=== PATIENT | female | born 1950 | race Caucasian/White ===

== ENCOUNTER 2018-04-14 08:26 | Outpatient (CLI) | payer OTHER, SELFPAY ==
[2018-04-14 09:29] LABS: Hemoglobin A1C 5.6 % (4.5-6.2)
[2018-04-14 09:42] LABS: Cholesterol 292 mg/dL (50-200); Glucose 99 mg/dL (70-100); HDL Cholesterol 128 mg/dL (40-60); LDL CHOLESTEROL 139 mg/dL (<100); Triglyceride 56 mg/dL (30-150)
== END 2018-04-14 08:46 ==
PROVIDERS: PCP Internal Medicine; Visit Provider Obstetrics & Gynecology Gynecology
DX: Z00.00 Encounter for general adult medical examination without abnormal findings (principal); Z13.220 Encounter for screening for lipoid disorders; Z13.1 Encounter for screening for diabetes mellitus
CPT/HCPCS: 36415; 80061; 82947; 83721; 83036

== ENCOUNTER 2018-04-18 00:30 | Outpatient (CLI) | payer OTHER, SELFPAY ==
--- NOTE | 2018-04-18 10:00 | DI.MAMMO_ITS ---
SYMPTOM/DIAGNOSIS: SCREENING, Z12.31, PREVENTATIVE CARE, Z00.00 MAMMOGRAMS: Mammograms were interpreted according to the usual protocol including computer analysis with CAD system, tomosynthesis and C view imaging. Comparison with prior examinations. Breast density B. No suspicious masses or microcalcifications are seen. There is no definite evidence of malignancy. IMPRESSION: Negative mammogram. Routine screening is recommended. Category I. MQSA ASSESSMENT OF FINDINGS: Negative. Category 1. Patient will receive a letter notifying them of these results. BI-RADS category B. There are scattered areas of fibroglandular density.
== END 2018-04-18 00:50 ==
PROVIDERS: PCP Internal Medicine; Visit Provider Obstetrics & Gynecology Gynecology
DX: Z00.00 Encounter for general adult medical examination without abnormal findings (principal); Z12.31 Encounter for screening mammogram for malignant neoplasm of breast
CPT/HCPCS: 77063; 77067

== ENCOUNTER 2018-04-18 12:38 | Outpatient (REF) | payer OTHER, SELFPAY ==
--- NOTE | 2018-04-18 09:40 | PAPFT_PTH ---
PATIENT: Sheila Arreola LOC: [facility] U#:[id number] AGE/SX: 67/F ROOM: RE04/18/[address]: Nani Nichols : 1950 BED: DIS: 04/18/2018 SPEC #: [id number] RECD: 04/18/18 12:51 STATUS: PRINCESS REItzel #: [id number] MARLENA: 04/18/18 09:[address]: Nani Nichols DEPT: [facility] Cytology RECD BY: Christin Burgess ENTERED: 04/18/18 12:52 SP TYPE: PAPFT OTHR DR: Mulu Alfaro Tissues: 1 - CX/ENDOCX FOR PAP SMEARS Procedures: PAP THIN PREP/UVM Screening HPV DNA PROBE Comments: [id number]
== END 2018-04-18 12:58 ==
LOC: LBN 12:38
PROVIDERS: PCP Internal Medicine; Visit Provider Obstetrics & Gynecology Gynecology
DX: Z12.4 Encounter for screening for malignant neoplasm of cervix (principal); Z11.51 Encounter for screening for human papillomavirus (HPV)
CPT/HCPCS: 88142; 87624

== ENCOUNTER 2019-01-13 01:45 | Outpatient (CLI) | payer OTHER, SELFPAY ==
[2019-01-13 10:45] LABS: ALT 49 U/L (14-59); AST 22 U/L (15-37); Albumin 4.2 g/dL (3.4-5.0); Alkaline Phosphatase 77 U/L (46-116); Anion Gap 11.4 mmol/L (3-11); BUN 28 mg/dL (7-18); Bilirubin, Total 0.9 mg/dL (0.2-1.0); CO2 27.6 mmol/L (21.0-32.0); CREATININE 0.96 mg/dL (0.55-1.02); Calcium 9.6 mg/dL (8.5-10.1); Calculated LDL 167 mg/dL; Chloride 104 mmol/L (98-107); Cholesterol 303 mg/dL (50-200); Estimated GFR 57.63 (mL/min/1.73m2); Glucose 110 mg/dL (70-100); HDL Cholesterol 127 mg/dL (40-60); Potassium 4.3 mmol/L (3.5-5.1); Sodium 143 mmol/L (136-145); Total Protein 7.7 g/dL (6.4-8.2); Triglyceride 48 mg/dL (30-150)
[2019-01-16 23:45] LABS: 25-Hydroxy D Total 44 ng/mL; 25-Hydroxy D2 <4.0 ng/mL; 25-Hydroxy D3 44 ng/mL
== END 2019-01-13 02:05 ==
PROVIDERS: PCP Internal Medicine; Visit Provider Nurse Practitioner Family
DX: E78.5 Hyperlipidemia, unspecified (principal); E55.9 Vitamin D deficiency, unspecified
CPT/HCPCS: 36415; 80053; 80061; 82306

== ENCOUNTER 2019-05-15 00:32 | Outpatient (CLI) | payer OTHER, SELFPAY ==
--- NOTE | 2019-05-15 09:30 | DI.MAMMO_ITS ---
EXAM: MG MAMMO SCREENING CLINICAL HISTORY: screening Z12.39 TECHNIQUE: Bilateral full field digital CC and MLO mammographic images were obtained with 3D tomosyn thesis and utilizing computer aided detection (CAD). COMPARISON: Available for comparison. FINDINGS: Masses/Architectural Distortion: None seen. Microcalcifications: No suspicious pleomorphic-type are seen. Skin Thickening/Nipple Retraction: None. IMPRESSION: 1. No significant interval change with no specific features of malignancy noted. 2. Unless there is more urgent need, screening mammography is recommended, as per [employer] guidelines. BI-RADS Cat 1 - Negative Breast Density - Category B - Scattered areas of fibroglandular density A negative radiographic report should not delay biopsy if a dominant or clinically suspicious mass is present. Up to ten percent of cancers are not identified on mammography. A negative report may reinforce clinical impression. Adenosis and dense breasts may obscure an underlying neoplasm. False positive reports average 6 to 10%. Patient will receive a letter notifying them of these results.
== END 2019-05-15 00:52 ==
PROVIDERS: PCP Internal Medicine; Visit Provider Nurse Practitioner Family
DX: Z12.31 Encounter for screening mammogram for malignant neoplasm of breast (principal)
CPT/HCPCS: 77063; 77067

== ENCOUNTER 2020-02-06 10:02 | Day surgery (SDC) | payer OTHER, SELFPAY ==
--- NOTE | 2020-02-06 09:22 | PDOC.DSDIS_ITS ---
Discharge Plan Disposition Patient Disposition: HOME Condition: Good Discharge Details Reason For Visit: Left trigger thumb Attending Provider: Kahlil St Primary Care Provider: Mulu Alfaro Home Meds and New Rx's Prescriptions: New acetaminophen 500 mg tablet 500 mg PO Q6H PRN (Reason: pain) Qty: 60 RF: 0 ibuprofen 600 mg tablet 600 mg PO TID PRN (Reason: pain) Qty: 60 RF: 0 Continued triamcinolone acetonide 60 ML lotion 60 ml Topical PRN RF: 0 Discharge Instructions Stand Alone Forms: Maciel Crowder Finger Release Referrals: Kahlil St MD [ [facility] STAFF PHYSICIAN] - Activity:: Elevate Remove Dressings/Wound Care:: 72 hours Shower/Bathe:: 72 hours Diet:: As Tolerated Discharge Orders Discharge Orders: Discharge Order (Routine); Ordered 02/06/20 Ordered By: Екатерина Edgar DS: Diagnosis Discharge Diagnosis (1) Trigger finger of left thumb: Status: Acute
[2020-02-06 10:15] VITALS: BP 119/69; PULSE 70; RESP 18; TEMP 36.3; O2SAT 97
[2020-02-06 11:40] VITALS: BP 127/71; PULSE 72; RESP 16; O2SAT 99
[2020-02-06 11:53] VITALS: BP 126/75; PULSE 61; RESP 17; O2SAT 98
[2020-02-06] MEDS: Sodium Bicarbonate 50 MEQ/50 ML VIAL (11:55)
[2020-02-06 12:03] VITALS: BP 130/94; PULSE 69; RESP 18; O2SAT 98
--- NOTE | 2020-02-06 17:01 | ROE_ITS ---
Date of service: 02/06/20 Time of Service: 11:01 Operative Note Operative Note DATE OF PROCEDURE: 02/06/20 PRE-OP DIAGNOSIS: Left Thumb Trigger Finger POST-OP DIAGNOSIS: same PROCEDURE: Trigger Finger Release - Left Thumb SURGEON: Kahlil St ANESTHESIA: local ESTIMATED BLOOD LOSS: 0 PATHOLOGY: none sent COMPLICATIONS: None Patient was transported to: same day Patient's condition: stable Indications: I have seen Sheila in clinic for symptoms of a trigger finger. The catching, clicking, locking, and pain limited function. The diagnosis of trigger finger was evident. The symptoms had not responded to conservative measures. I discussed trigger finger release with the patient. I reviewed the risks of the procedure to include, but not limited to, bleeding, infection, pain, stiffness, incomplete release, damage to nerves or vessels, continued catching, recurrence. Despite these risks, the patient elected to proceed. Findings: There was a tightened A1 adama which was released. The flexor tendons were inspected and the patient was able to move the finger without any catching, clicking, or locking. Procedure Description: Sheila was greeted in the preoperative holding area where the correct side was identified and marked. The consent was reviewed with the patient and signed. All questions were answered. Sheila was taken back to the operating room. The patient was placed into the supine position on the operating room table with the left arm on an arm board. All bony prominences were well padded. No prophylactic antibiotics were administered since this was a clean, elective hand surgical case. The left arm was then prepped with Chloraprep and draped in a standard fashion with stockinette and extremity drape. A timeout to confirm correct identity, side and site, procedure, allergies, anesthesia, and medical concerns was performed. The surgical site was marked as a longitudinal incision directly over the A1 adama of the involved digit. This was confirmed with palpation during finger flexion. This area, overlying the metacarpal head, was then anesthetized with 1% Lidocaine. The patient tolerated this well and once the anesthetic had setup, the procedure began. A longitudinal incision was made through skin only, approximately 1cm. The deep tissues were dissected bluntly. Once the A1 adama and flexor tendons were identified the soft tissue including neurovascular structures were retracted medially and laterally. There were no crossing structures over the A1 adama. The proximal edge of the adama was identified and the adama was incised with tenotomy scissors. There was a release of the tendons once this was fully released. The tendons were then removed from the wound and inspected. Excess synovium was resected. The tendons were then returned and the patient was asked to move the finger into deep flexion and back to extension. There was no recreation of the pre-operative symptoms. The hand was then once more inspected for any A0 adama or area of possible constriction. The wound was then irrigated and the skin was closed with a 4-0 Nylon. This was dressed with gauze and a Conform dressing. The patient tolerated the procedure well and was returned to the Same Day Surgery area in a stable condi tion suffering no known complication.
== END 2020-02-06 12:26 | disposition home or self-care (01) ==
LOC: SUR 10:03
PROVIDERS: PCP Internal Medicine; Visit Provider Student in an Organized Health Care Education/Training Program
PROC: (CPT 26055; principal; 2020-02-06 12:45)
DX: M65.312 Trigger thumb, left thumb (principal)
CPT/HCPCS: 26055

== ENCOUNTER 2020-04-09 02:38 | Outpatient (CLI) | payer OTHER, SELFPAY ==
[2020-04-09 10:56] LABS: Hemoglobin A1C 5.4 % (<5.7)
[2020-04-09 10:58] LABS: Abs Immature Grans 0.02 10^3/uL (0.0-0.06); Absolute Basophil Count 0.03 10^3/uL (0.0-0.2); Absolute Eosinophil Count 0.14 10^3/uL (0.0-0.7); Absolute Lymphocyte Count 1.36 10^3/uL (1.2-3.4); Absolute Monocyte Count 0.42 10^3/uL (0.1-0.8); Absolute Neutrophil Count 3.33 10^3/uL (1.2-6.7); Basophils % 0.6; Eosinophils % 2.6; HCT 40.1 % (36.0-46.0); HGB 13.2 g/dL (11.2-15.7); Immature Grans % 0.4; Lymphocytes % 25.7; MCH 30.9 pg (27.0-33.0); MCHC 32.9 % (32.0-36.0); MCV 93.9 fL (80-95); Monocytes % 7.9; Neutrophils % 62.8; Nucleated RBC 0 %; Platelet Count 221 10^3/uL (130-400); RBC 4.27 10^6/uL (3.93-5.22); RDW 12.5 % (11.7-14.6); RDW-SD 43.2 fL
[2020-04-09 12:15] LABS: ALT 53 U/L (14-59); AST 29 U/L (15-37); Albumin 3.5 g/dL (3.4-5.0); Alkaline Phosphatase 85 U/L (46-116); BUN 12 mg/dL (7-18); Bilirubin, Total 1.2 mg/dL (0.2-1.0); CREATININE 0.9 mg/dL (0.55-1.02); Chloride 106 mmol/L (98-107); FREE T4 0.86 ng/dL (0.76-1.46); Glucose 109 mg/dL (74-106); Potassium 3.9 mmol/L (3.5-5.1); Sodium 144 mmol/L (136-145); TSH 1.02 uIU/mL (0.36-3.74); Total Protein 6.9 g/dL (6.4-8.2)
[2020-04-09 12:28] LABS: Calculated LDL 164 mg/dL (<100); Cholesterol 296 mg/dL (<200); HDL Cholesterol 121 mg/dL (40-60); Triglyceride 59 mg/dL (<150)
[2020-04-12 20:36] LABS: 25-Hydroxy D Total 34 ng/mL; 25-Hydroxy D2 <4.0 ng/mL; 25-Hydroxy D3 34 ng/mL
== END 2020-04-09 02:39 | disposition home or self-care (01) ==
LOC: LBO 02:38
PROVIDERS: PCP Internal Medicine; Visit Provider Nurse Practitioner Family
DX: R73.9 Hyperglycemia, unspecified (principal); E55.9 Vitamin D deficiency, unspecified; E78.5 Hyperlipidemia, unspecified
CPT/HCPCS: 36415; 80053; 80061; 82306; 83036; 84439; 84443; 85025

== ENCOUNTER 2020-04-18 01:16 | Outpatient (CLI) | payer OTHER, SELFPAY ==
--- NOTE | 2020-04-18 12:12 | DI.MAMMO_ITS ---
EXAM: MG MAMMO SCREENING CLINICAL HISTORY: SCREENING, Z12.39. TECHNIQUE: Bilateral full field digital CC and MLO mammographic images were obtained with 3D tomosyn thesis and utilizing computer aided detection (CAD). COMPARISON: Prior mammograms dating back to 2010, the most recent being April 2019. FINDINGS: There are no CAD designations. In the anterior aspect of right breast there is a noncalcified well-defined 5 x 5 millimeter nodule l ocated approximately 2 cm in from the nipple, slightly lateral center. There are no malignant-appear ing microcalcification groups in this region or elsewhere in either breast. No new nodules evident i n the opposite-left breast. There is no significant architectural distortion nor skin thickening-re traction. IMPRESSION: No radiographic evidence of malignancy in left breast 5 x 5 millimeter noncalcified nodule located anteriorly in the right breast, relatively central and s lightly lateral para areolar region. Ultrasound recommended BI-RADS Category 0 - Assessment Incomplete: Need additional imaging evaluation Breast Density - Category B - Scattered areas of fibroglandular density Breast density Category C or D implies that the patient has dense breast tissue. Dense breast tissue can make it harder to find cancer on a mammogram. Dense breast tissue is also associated with an incr eased risk of breast cancer. This information about the result of the mammogram report was provided to the patient to raise their awareness. Use this report when you speak with the patient about their risks for breast cancer, which includes their family history. At that time, you may recommend additional screening tests (Ultrasoun d or MRI) as these tests may add significant information. A negative radiographic report should not delay biopsy if a dominant or clinically suspicious mass is present. Up to ten percent of cancers are not identified on mammography. A negative report may reinforce clinical impression. Adenosis and dense breasts may obscure an underlying neoplasm. False positive reports average 6 to 10%. Patient will receive a letter notifying them of these results.
== END 2020-04-18 01:17 ==
LOC: DI 01:17
PROVIDERS: PCP Internal Medicine; Visit Provider Nurse Practitioner Family
DX: Z12.31 Encounter for screening mammogram for malignant neoplasm of breast (principal); R92.8 Other abnormal and inconclusive findings on diagnostic imaging of breast
CPT/HCPCS: 77063; 77067

== ENCOUNTER 2020-04-26 14:09 | Outpatient (CLI) | payer OTHER, SELFPAY ==
--- NOTE | 2020-04-26 | DI.CT_ITS ---
EXAM: CT CHEST W CLINICAL HISTORY: COUGH, R05,PARATRACHEAL LYMPH NODE ON CXR 03/21/20 TECHNIQUE: Imaging Protocol: Axial computed tomography images with coronal and sagittal reformatted images were created and reviewed CONTRAST MATERIAL: Intravenous: Omnipaque 350 Contrast volume:70 cc . COMPARISON: No exams were available for comparison FINDINGS: Tracheobronchial tree: Patent where visualized. Mediastinum and Naina: No dominant adenopathy or fluid collection. Pulmonary parenchyma: No consolidation or dominant measurable mass. No architectural distortion. Pleura: No effusion or pneumothorax. Heart: The heart is not dilated. No coronary artery calcifications are seen. Aorta: Thoracic aorta non-dilated. Minimal calcification. Upper abdomen: Liver, spleen, adrenals and visualized portions of the pancreas and kidneys are unrem arkable. Few small calcified gallstones are seen. There is no gallbladder wall thickening or abnorm al distention. There is a question of a small diverticulum of the descending duodenum. This is not fully included on the exam. Lymph nodes: 2.4 centimeter maximal dimension calcified right paratracheal lymph node, consistent wit h old healed granulomatous disease. No suspicious lymph nodes. Bones: Degenerative disc changes. Hemangioma T10. Soft tissues: Unremarkable. IMPRESSION: Calcified right paratracheal lymph node consistent with old granulomatous disease. No suspicious abn ormalities are identified. RADIATION DOSE DELIVERED: 495.45mGy.cm Total DLP DATA REPOSITORY: All CT scans at this facility are submitted to the National Radiology Data Registry (NRDR) Dose Index Registry (DIR) with the [employer] (ACR). RADIATION OPTIMIZATION: All CT scans at this facility use at least one of these dose optimization te chniques: automated exposure control; mA and/or kV adjustment per patient size (includes targeted exa ms where dose is matched to clinical indication); or iterative reconstruction.
[2020-04-26] MEDS: Normal Saline - Diluent 50 ML VIAL IV (15:49)
[2020-04-26] MEDS: Omnipaque 350 MG/ML 100 ML BTL IV (15:49)
[2020-04-26] MEDS: Normal Saline Flush 10 ML SYR IVP (15:49)
== END 2020-04-26 14:29 ==
PROVIDERS: PCP Internal Medicine; Visit Provider Nurse Practitioner Family
DX: I89.8 Other specified noninfective disorders of lymphatic vessels and lymph nodes (principal); R05 Cough
CPT/HCPCS: 71260; J3490

== ENCOUNTER → 2020-07-04 09:31 | Outpatient (BNVA) | payer MEDICARE, SELFPAY | PROVIDERS: PCP Internal Medicine; Referring Provider Nurse Practitioner Family; Visit Provider Physical Therapy Assistant | DX: Z12.11 Encounter for screening for malignant neoplasm of colon (principal); Z86.010 Personal history of colon polyps ==

== ENCOUNTER 2020-07-11 02:00 | Outpatient (CLI) | payer MEDICARE, SELFPAY ==
[2020-07-11 10:44] LABS: Source Nasal/Nares
[2020-07-11 12:47] LABS: COVID-19 PCR Negative (Negative)
== END 2020-07-11 02:01 | disposition home or self-care (01) ==
LOC: LBO 02:00
PROVIDERS: PCP Internal Medicine; Visit Provider Surgery
DX: Z20.822 Contact with and (suspected) exposure to COVID-19 (principal); Z01.818 Encounter for other preprocedural examination
CPT/HCPCS: 87635

== ENCOUNTER 2020-07-15 11:03 | Day surgery (SDC) | payer MEDICARE, SELFPAY ==
--- NOTE | 2020-07-15 06:32 | W.COLOREPORT ---
Date of service: 07/15/20 Time of Service: : Colonoscopy Report Date of procedure: 07/15/20 Pre-op diagnosis general: Hx of colon polyps Post-op diagnosis procedure note: same (and diverticulosis) Procedure: Colonoscopy with polypectomy Surgeon: Anayeli Eddy Anesthesia Type: General:No Airway (ASA 2/ Best Hartley CRNA) Estimated blood loss (mL): 2 Pathology: other (Ascending polyp) Complications: None Disposition: same day Indications: The patient is here for Colonoscopy pre-op. Her last screening was in 2014 and was remarkable for tubular adenomatous polyp. She has no family history of colon cancer. She has not had any bowel habit changes. -Discussed colonoscopy bowel prep as well as the procedure. Discussed possible complications of the procedure to include bleeding, pain, perforation, missed small lesion/polyp, sore throat, aspiration and adverse reaction to the medications. Questions were answered to patient?s satisfaction. No guarantees were implied or given.? Prep: Miralax/Dulcolax Procedure Start Time: :22 Procedure End Time: 12:45 Retraction Time: 15 minutes Findings: One small sessile polyp Moderate vernon-diverticulosis Procedure Description: After informed consent was obtained the patient was taken to the procedure room and placed in a left decubitous position. Monitors were applied and a time out was done. The patients name, date of , procedure, allergies to medications and metal in their body was reviewed. The patient was then sedated. Once sedated and comfortable a rectal exam was done. External exam was normal. Internal exam revealed a normal sphincter tone and no palpable masses. The scope was then introduced and retro-flexed. No internal hemorrhoids, polyps or masses were identified on retro-flexion. The scope was then advanced to the cecum without difficulty. The ileocecal vlave and appendiceal orifice were identified. The prep was adequate. The scope was then slowly retracted over 15 minutes back into the rectum. Polyps were removed with cold forceps in the ascending colon. There was moderate vernon- diverticulosis noted. The scope was removed and the patient was woken up and taken back to Same day surgery in stable condition. The patient tolerated the procedure well and there were no immediate complications. Follow up: The patient should follow up in 5 years unless they develop changes in bowel habits or other new gastrointestinal complaints.
--- NOTE | 2020-07-15 06:32 | W.PM.DSUDISC ---
Discharge Plan Disposition Patient Disposition: HOME Condition: Good Discharge Details Reason For Visit: Colonoscopy Attending Provider: Anaylei Eddy Primary Care Provider: Mulu Alfaro Home Meds and New Rx's Prescriptions: Continued triamcinolone acetonide 60 ML lotion 60 ml Topical PRN RF: 0 acetaminophen 500 mg tablet 500 mg PO Q6H PRN (Reason: pain) Qty: 60 RF: 0 ibuprofen 600 mg tablet 600 mg PO TID PRN (Reason: pain) Qty: 60 RF: 0 Discontinued bisacodyl [Dulcolax (bisacodyl)] 5 mg tablet,delayed release (DR/EC) 5 mg PO ONCE Qty: 4 RF: 0 polyethylene glycol 3350 17 gram/dose powder 17 g PO ONCE Qty: 238 RF: 0 Discharge Instructions Instructions: Colorectal Polyps (DC), Diverticulosis (DC) Additional Instructions: Findings: One small polyp Diverticulosis Follow up: 5 years Please call if you develop: fevers >101.5 Nausea or Vomiting Abdominal pain that is not transient Rectal bleeding that is more then a tbsp A hard abdomen and inability to pass gas DAY SURGERY UNIT POST ENDOSCOPY INSTRUCTIONS Instructions for everyone who is given Anesthesia: For your safety, please do the following for the next 24 Hours: a. Do not drive or operate dangerous equipment b. Do not drink alcohol beverages or use any recreational drugs for the first 24 hours or while taking pain medications. The medications in your body may have a reaction that can be dangerous. c. Do not make any important decisions or sign any important papers 1. Generally there are no restrictions on your activity after a day or so has gone by, but you may feel a bit fatigued for a few days. 2. After you arrive home you may have a light meal and return to a normal diet as you can tolerate it without feeling sick to your stomach. 3. After surgery, you may feel pain or discomfort. This should be only transient, but if it persists please contact your doctor. 4. If there are any questions regarding the findings of your procedure, please feel free to contact your doctor. 6. If you are unable to contact your doctor with a problem, contact the hospital at [phone]. 7. Continue all your regular medications unless directed otherwise. I understand the above instructions and have no questions. Signature of Patient or Responsible Adult Escort Date/Time Name of Responsible Adult Escort Signature of Nurse Date/Time Activity:: Activity as Tolerated Diet:: high fiber diet Discharge Orders Discharge Orders: Discharge Order (Routine); Ordered 07/15/20 Ordered By: Anayeli Eddy
[2020-07-15 11:32] VITALS: BP 124/78; PULSE 65; RESP 16; TEMP 36.3; O2SAT 97
[2020-07-15] MEDS: Lactated Ringers 1,000 ML 80 ML IV (11:50)
--- NOTE | 2020-07-15 11:54 | ANES.PREOP_ITS ---
General Info Date of Service Date Performed: 07/15/20 Height: 5 ft 3 in Weight: 65.1 kg Body Mass Index (BMI): 25.4 Surgical Procedure: Operation Date: 07/15/20 11:50 Proposed Procedures Side Surgeon p Colonoscopy Anayeli Eddy MD Meds Allergies and Home Medications Allergies Allergy/AdvReac Type Severity Reaction Status Date / Time amoxicillin Allergy Severe Skin Rash Unverified 07/15/20 11:27 cephalexin monohydrate Allergy Intermediate Hives Unverified 07/15/20 11:27 [From [facility]] Home Medication Medication Instructions Recorded triamcinolone acetonide 60 ml TOPICAL PRN script 03/16/16 acetaminophen 500 mg PO Q6H PRN #60 tab 02/06/20 ibuprofen 600 mg PO TID PRN #60 tab 02/06/20 bisacodyl 5 mg tablet,delayed 5 mg PO ONCE #4 tab 07/05/20 release polyethylene glycol 3350 17 17 g PO ONCE #238 g 07/05/20 gram/dose oral powder Current Visit Medications: Current Medications Generic Name Dose Route Start Last Admin Trade Name Riverq PRN Reason Stop Dose Admin Hyoscyamine Sulfate 0.125 mg 07/15/20 06:33 Hyoscyamine 0.125 Mg Sl/Oral/Chew SL DIRECTED PRN Ringer's Solution 1,000 mls @ 80 mls/hr 07/15/20 06:00 07/15/20 11:50 IV 07/15/20 23:59 80 mls/hr INFUSION NAN Administration IV Miscellaneous Supplies 1 each 07/15/20 06:00 Iv Access IV 07/15/20 23:59 DIRECTED NAN Ondansetron HCl 4 mg 07/15/20 06:33 Ondansetron 4 Mg/2 Ml Vial IVP Q4H PRN PRN Nausea / Vomiting Sodium Chloride 0 ml 07/15/20 06:00 Normal Saline Flush 10 Ml Syr IV 07/15/20 23:59 PRN PRN Sodium Chloride 0 ml 07/15/20 06:00 Normal Saline 10 Ml Vial IJ 07/15/20 23:59 DIRECTED PRN Sterile Water 0 ml 07/15/20 06:00 Water,Injection,Sterile 10 Ml Vial IJ 07/15/20 23:59 DIRECTED PRN PFSH Active Problems Active Problems: Problem Status Onset Code Screening for colon cancer Z12.11 Trigger finger of left thumb M65.312 Medical History Medical History (Updated 07/15/20 @ 11:31 by Malorie Bates) Cystocele pt .unaware of this Eczema History of trigger finger Hyperglycemia Hyperlipidemia Pruritic rash Trigger finger of left thumb Vitamin D deficiency Surgical History Surgical History Colonoscopy - IV Sedation (01/07/15) DR.C. LOMBARDO H/O nasal septoplasty History of carpal tunnel surgery History of section Tobacco Smoking/Tobacco Use Status: Never Alcohol Alcohol Intake: current Alcohol intake frequency: 0-2 drinks per day Alcohol type: wine Substance Use Substance use: Never Substance use type: does not use Details: alcohol:t-5 Prental History History 2 Para Hx # Term Pregnancies 2 Multiple births Hx # Pregnancies Ectopic pregnancies AB induced Hx Number of Living Children AB spontaneous Vital Signs and Lab Results Vital Signs Most Recent Vital Signs in EMR: Most Recent Vital Signs Temp Pulse Resp BP Pulse Ox 36.3 C L 65 16 124/78 97 07/15/20 11:32 07/15/20 11:32 07/15/20 11:32 07/15/20 11:32 07/15/20 11:32 Lab Results Blood Type / Crossmatch: No Data to Display Complete Blood Count: No Data to Display Complete Metabolic Panel: No Data to Display Liver Function Panel: No Data to Display Coagulation Panel: No Data to Display Cardiac Panel: No Data to Display Arterial Blood Gas: No Data to Display Venous Blood Gas: No Data to Display Pancreas Panel: No Data to Display Thyroid Panel: No Data to Display Infectious Disease: Coronavirus (COVID-19)(PCR) Negative (Negative) 07/11/20 10:06 07/11/20 Coronavirus 2019 Source Nasal/nares 07/11/20 10:06 07/11/20 Blood Cultures: No Data to Display Toxicology Panel: No Data to Display Anesthesia Assessment and Plan Anesthesia History Personal History: No History of Anesthesia Complications Family History: No Family History of Anesthesia Complications Exercise Tolerance Exercise Tolerance: Metabolic Equivalents>4 Pertinent Negatives Pertinent Negatives: No Symptoms of GERD Cardiac & Pulmonary Exam Cardiac Exam: Normal S1/S2 Heart Sounds Pulmonary Exam: Clear Bilateral Breath Sounds Airway Exam Known Difficult Airway: No Mallampati Class: 2 Mouth Opening: Normal (> 3cm) Thyromental Distance: Less than 3 cm Neck Range of Motion: Full ROM Neck Circumference: Normal Teeth Condition: Normal Dentition ASA Classification ASA Score: ASA 2 Emergency Case?: No NPO Status NPO Status: NPO Clears >2 hours, Solids >8 hours Anesthesia Plan Resuscitation Status: Full Code Anesthesia Technique: General Anesthesia Airway Planned: Natural Airway Monitors Used: Standard Monitors
[2020-07-15 11:58] VITALS: BMI 25.4
--- NOTE | 2020-07-15 12:31 | BOWEL_PTH ---
PATIENT: Sheila Arreola LOC: [facility] U#:[id number] AGE/SX: 70/F ROOM: RE07/15/[address]: Anayeli Eddy MD : 1950 BED: DIS: 07/15/2020 SPEC #: [id number] RECD: 07/15/20 17:46 STATUS: PRINCESS REQ #: [id number] MARLENA: 07/15/20 12:[address]: Anayeli Eddy DEPT: Surgical Specimen RECD BY: Christin Burgess ENTERED: 07/15/20 17:47 SP TYPE: Bowel OTHR DR: Mulu Alfaro Tissues: 1 - BIOPSY BOWEL Procedures: GROSS AND MICRO LEVEL 4 Comments: [id number]
--- NOTE | 2020-07-15 12:49 | W.ANESPOSTOP ---
Postoperative Evaluation Date, Time and Location Date Performed: 07/15/20 Time Performed: 12:50 Patient Location: Day Surgery Unit Vital Signs Most Recent Imported Vital Signs: Most Recent Vital Signs Temp Pulse Resp BP Pulse Ox 36.3 C L 65 16 124/78 97 07/15/20 11:32 07/15/20 11:32 07/15/20 11:32 07/15/20 11:32 07/15/20 11:32 Most Recent Manually Entered Vital Signs: Adult Blood Pressure: 112/63 Heart Rate: 60 Respirations: 14 Oxygen Saturation (%): 99 Temperature (C): 36.4 C Pain Score (0-10 Scale): 0 Pain Score Most Recent Pain Score: Most Recent Pain Score Pain Level 0 07/15/20 11:32 Assessment Mental Status: Arousable with meaningful communication Airway and Respiratory Function: Patent airway with normal (patient baseline) respiratory exam Cardiovascular Function: Hemodynamically Stable Hydration Status: Adequately Hydrated Nausea & Vomiting: No Nausea or Vomiting Pain: Pt. Denies Any Pain Peripheral Nerve Block: Patient did not receive a nerve block
[2020-07-15 12:50] VITALS: BP 112/63; PULSE 63; RESP 18; TEMP 36.4; O2SAT 99
[2020-07-15 12:52] VITALS: BP 112/63; PULSE 60; RESP 14; TEMPC 36.4; O2SAT 99
[2020-07-15 13:20] VITALS: BP 112/67; PULSE 62; RESP 18; TEMP 36.1; O2SAT 100
== END 2020-07-15 14:02 | disposition home or self-care (01) ==
LOC: SUR 11:03
PROVIDERS: PCP Internal Medicine; Visit Provider Surgery
PROC: 0DJD8ZZ Inspection of Lower Intestinal Tract, Via Natural or Artificial Opening Endoscopic (ICD-10-PCS; CPT 45378; principal; 2020-07-15 11:45)
DX: Z12.11 Encounter for screening for malignant neoplasm of colon (principal); D12.2 Benign neoplasm of ascending colon; Z86.010 Personal history of colon polyps; K21.9 Gastro-esophageal reflux disease without esophagitis; K57.30 Diverticulosis of large intestine without perforation or abscess without bleeding
CPT/HCPCS: 45380; 88305; J2001

== ENCOUNTER 2020-10-31 01:47 | Outpatient (CLI) | payer MEDICARE, SELFPAY ==
--- NOTE | 2020-10-31 | DI.MAMMO_ITS ---
Exam(s) MG MAMMO DIAGNOSTIC UNI EXAM: MG MAMMO DIAGNOSTIC UNI CLINICAL HISTORY: DIAGNOSTIC, F/U ABNL MAMMO, 6 MO F/U,R92.8. TECHNIQUE: Craniocaudal and mediolateral oblique Full Field Digital Mammography views of the right breast with Computer Aided Diagnosis followed by Tomosynthesis. COMPARISON: US US BREAST RT LIMITED from 04/24/2020 US US BREAST RT LIMITED from 04/24/2020 FINDINGS: Mammography/Tomosynthesis: Masses/Architectural Distortion: None seen. Previously noted circumscribed nodule in the subareolar region is no longer present. Microcalcifictions: No suspicious pleomorphic-type are seen. Skin Thickening/Nipple Retraction: None. IMPRESSION: 1. No evidence of malignancy is noted. 2. Unless there is more urgent need, follow-up screening mammography is recommended, as per [place] [employer] guidelines. BI-RADS Category 1 - Negative Breast Density - Category B - Scattered areas of fibroglandular density A negative radiographic report should not delay biopsy if a dominant or clinically suspicious mass is present. Up to ten percent of cancers are not identified on mammography. A negative report may reinforce clinical impression. Adenosis and dense breasts may obscure an underlying neoplasm. False positive reports average 6 to 10%. Patient will receive a letter notifying them of these results.
== END 2020-10-31 02:07 ==
PROVIDERS: PCP Internal Medicine; Visit Provider Nurse Practitioner Family
DX: R92.8 Other abnormal and inconclusive findings on diagnostic imaging of breast (principal)
CPT/HCPCS: 77061; 77065; G0279

== ENCOUNTER 2021-02-07 00:10 | Outpatient (CLI) | payer MEDICARE, SELFPAY ==
--- NOTE | 2021-02-07 14:00 | DI.DEXA_ITS ---
Exam(s) XR DEXA BONE DENSITY W/WO CESAR EXAM: XR DEXA BONE DENSITY W/WO CESAR CLINICAL HISTORY: POST MENOPAUSAL Z78.0, MENOPAUSAL STATE N95.1, SCREENING FOR OSTESPOROSIS TECHNIQUE: COMPARISON: Comparison is made with prior examinations. FINDINGS: Lateral Spine Image: Unremarkable. No compression deformities identified. Left hip: Total T-Score: 0.6. This compares to 1.5 on the prior examination. Total Z-Score: 2.2 T- and Z-scores: Within normal limits. Lumbar Spine: Total T-Score: 1.7. This compares to 1.9 on the prior examination. Total Z-Score: 3.9 T- and Z-scores: Within normal limits. IMPRESSION: No evidence of osteoporosis.
== END 2021-02-07 00:30 ==
PROVIDERS: PCP Internal Medicine; Visit Provider Internal Medicine
DX: Z13.820 Encounter for screening for osteoporosis (principal); N95.1 Menopausal and female climacteric states
CPT/HCPCS: 77080

== ENCOUNTER 2021-05-09 02:49 | Outpatient (CLI) | payer OTHER, SELFPAY ==
--- NOTE | 2021-05-09 08:00 | DI.MAMMO_ITS ---
Exam(s) MAMMO SCREENING EXAM: MAMMO SCREENING CLINICAL HISTORY: SCREENING, Z12.31. TECHNIQUE: Bilateral full field digital CC and MLO mammographic images were obtained with 3D tomosyn thesis and utilizing computer aided detection (CAD). COMPARISON: Prior mammograms were reviewed, the most recent being April 2020 and diagnostic study October 2020. Ultrasound examination of April 2020 was also reviewed. FINDINGS: There are no CAD designations. There are no new spiculated masses nor malignant appearing microcalcification groups. The previously described small nodule seen in the right breast on 3D cc imaging remains unchanged. T his was shown to be a probable hemorrhagic microcyst on ultrasound examination of April 2020. There is no significant architectural distortion nor skin thickening-retraction. IMPRESSION: Stable benign findings. No radiographic evidence of malignancy. BI-RADS Category 2 - Benign Findings Breast Density - Category B - Scattered areas of fibroglandular density Breast density Category C or D implies that the patient has dense breast tissue. Dense breast tissue can make it harder to find cancer on a mammogram. Dense breast tissue is also associated with an incr eased risk of breast cancer. This information about the result of the mammogram report was provided to the patient to raise their awareness. Use this report when you speak with the patient about their risks for breast cancer, which includes their family history. At that time, you may recommend additional screening tests (Ultrasoun d or MRI) as these tests may add significant information. A negative radiographic report should not delay biopsy if a dominant or clinically suspicious mass is present. Up to ten percent of cancers are not identified on mammography. A negative report may reinforce clinical impression. Adenosis and dense breasts may obscure an underlying neoplasm. False positive reports average 6 to 10%. Patient will receive a letter notifying them of these results.
== END 2021-05-09 03:09 ==
PROVIDERS: PCP Internal Medicine; Visit Provider Internal Medicine
DX: Z12.31 Encounter for screening mammogram for malignant neoplasm of breast (principal)
CPT/HCPCS: 77063; 77067

== ENCOUNTER 2022-08-13 00:54 | Outpatient (CLI) | payer OTHER, SELFPAY ==
--- NOTE | 2022-08-13 10:38 | DI.MAMMO_ITS ---
Exam(s) MAMMO SCREENING EXAM: MAMMO SCREENING CLINICAL HISTORY: screening Z12.39 FOR BREAST CANCER. TECHNIQUE: Bilateral full field digital CC and MLO mammographic images were obtained with 3D tomosyn thesis and utilizing computer aided detection (CAD). COMPARISON: Prior mammograms were reviewed. Prior ultrasound also reviewed. FINDINGS: There has been no significant change in the appearance and distribution of the fibroglandular tissue. There are no CAD designations. There are no new spiculated masses nor malignant appearing microcalcification groups. There is no significant architectural distortion nor skin thickening-retraction. IMPRESSION: No radiographic evidence of malignancy. BI-RADS Category 1 - Negative Breast Density - Category B - Scattered areas of fibroglandular density Breast density Category C or D implies that the patient has dense breast tissue. Dense breast tissue can make it harder to find cancer on a mammogram. Dense breast tissue is also associated with an incr eased risk of breast cancer. This information about the result of the mammogram report was provided to the patient to raise their awareness. Use this report when you speak with the patient about their risks for breast cancer, which includes their family history. At that time, you may recommend additional screening tests (Ultrasoun d or MRI) as these tests may add significant information. A negative radiographic report should not delay biopsy if a dominant or clinically suspicious mass is present. Up to ten percent of cancers are not identified on mammography. A negative report may reinforce clinical impression. Adenosis and dense breasts may obscure an underlying neoplasm. False positive reports average 6 to 10%. Patient will receive a letter notifying them of these results.
== END 2022-08-13 01:14 ==
PROVIDERS: PCP Internal Medicine; Visit Provider Obstetrics & Gynecology
DX: Z12.31 Encounter for screening mammogram for malignant neoplasm of breast (principal)
CPT/HCPCS: 77063; 77067

== ENCOUNTER 2022-08-13 01:15 | Outpatient (CLI) | payer OTHER, SELFPAY ==
[2022-08-13 10:40] LABS: Calculated LDL 141 mg/dL (<100); Cholesterol 308 mg/dL (<200); HDL Cholesterol 160 mg/dL (40-60); TSH (W/Ref FT4) 1.65 uIU/mL (0.36-3.74); Triglyceride 39 mg/dL (<150)
== END 2022-08-13 01:16 | disposition home or self-care (01) ==
PROVIDERS: PCP Internal Medicine; Visit Provider Obstetrics & Gynecology
DX: Z12.31 Encounter for screening mammogram for malignant neoplasm of breast (principal); Z00.00 Encounter for general adult medical examination without abnormal findings
CPT/HCPCS: 80061; 84443

== ENCOUNTER 2023-07-15 05:14 | Outpatient (CLI) | payer OTHER, SELFPAY ==
[2023-07-15 08:56] LABS: Cholesterol 295 mg/dL (<200); Triglyceride 42 mg/dL (<150)
[2023-07-15 09:01] LABS: Calculated LDL 118 mg/dL (<100); HDL Cholesterol 169 mg/dL (40-60)
[2023-07-15 10:22] LABS: Vitamin D 25 Total 22.2 ng/mL (30-100)
== END 2023-07-15 05:15 | disposition home or self-care (01) ==
PROVIDERS: PCP Internal Medicine; Visit Provider Internal Medicine
DX: E78.5 Hyperlipidemia, unspecified (principal)
CPT/HCPCS: 36415; 80061; 82306

== ENCOUNTER 2023-10-22 00:03 | Outpatient (CLI) | payer OTHER, SELFPAY ==
--- OUTSIDE RECORDS SUMMARY | 2023-10-22 00:05 | XMS_ITS | Encounter Summary ---
Author Organization [facility] Address [address] [place] [address] Care Team Providers Care Stud Beef Cattle Farmer Name Role Phone Bobby Aldridge MD Primary Care Provider [phone] Encounter Details Date Type Department Care Team (Late st Contact Info) Description 04/18/2018 Results Only [facility] [phone] Claribel Oliva MD [facility] [place], [place] [address] Social History Tobacco Use Types Packs/Day Years Used Date Smoking Tobacco: Never Assessed Sex and Gender Information Value Date Recorded Sex Assigned at Not on file Gender Identity Not on file Sexual Orientation Not on file documented as of this encounter Plan of Treatment Not on file documented as of this encounter Procedures Procedure Name Priority Date/Time Associated Diagnosis Comments PAP TEST- RESULT ONLY Routine 04/18/2018 0:00 EST documented in this encounter Results * PAP TEST- RESULT ONLY (04/18/2018 0:00 EST) Pathology Report: CYTOPATHOLOGY REPORT Reports generated via electronic interface contain original data; however they are lacking the format of the original report. Caution should be taken when reading/interpreti ng unformatted reports. Name: ? JAROD MANCINI ? Accession #: ? [id number] ? : ? 1950 (Age: 67) ??F ?Collect Date: ? 04/18/2018 ? Location: ? [facility] ? Receive Date: ? 04/19/2018 ? Provider: CLARIBEL OLIVA MD Copy to: CONSTANTIN GIVENS MD ? Final Report SPECIMEN ADEQUACY ? Satisfactory for Evaluation - assessment of transformation zone component not applicable ( e.g. atrophy, vaginal sample, hysterectomy) GENERAL CATEGORIZATION ? Negative for Intraepithelial Lesion or Malignancy ?? Specimen/Source: ??Pap Test, Cervix/Endocervix, ThinPrep Imaging System with manual evaluation Document reviewed and electronically signed by: ? Falguni Han, [facility](ASCP) ? Report ??Date: 04/20/2018 11:08 HPV with Pap Test ? Date Ordered: ? 04/20/2018 ? Status: ?? Signed Out ?Date Complete: ? 04/21/2018 ? By: ??System Interface ? Date Reported: ? 04/21/2018 ? Interpretation RESULT: Negative for HPV. No E6 or E7 mRNA is detected from HPV types 16,18,31,33,35, 39,45,51,52,56,58, 59,66, and 68 by horologist apprentice mediated amplification. Comments Document reviewed and electronically signed by: ? System Interface ? Report date: 04/21/2018 By the signature above, the attending physician certifies that he/she has personally conducted a gross and/or microscopic examination of the described specimens and rendered or confirmed the above diagnosis. End of Report [facility] 04/18/2018 04/19/2018 Claribel Oliva MD PATHOLOGY ORDERABLES [facility] [address] [place] [address] documented in this encounter Visit Diagnoses Not on filedocumented in this encounter Care Teams Stud Beef Cattle Farmer Relationship Specialty Start Date End Date Bobby Aldridge MD [address] [place] [address] PCP - General 01/09/15 06/28/20 documented as of this encounter
--- OUTSIDE RECORDS SUMMARY | 2023-10-22 00:05 | XMS_ITS | Encounter Summary ---
Author Organization [facility] Address [address] [place] [address] Care Team Providers Care Structural Steel Shop Supervisor Name Role Phone Bobby Aldridge MD Primary Care Provider [phone] Encounter Details Date Type Department Care Team (Late st Contact Info) Description 03/22/2017 Results Only [facility] [phone] Gio Yu MD [address] [place] [address] Social History Tobacco Use Types Packs/Day Years [...] Diagnosis Comments PAP TEST- RESULT ONLY Routine 03/22/2017 0:00 EST documented in this encounter Results * PAP TEST- RESULT ONLY (03/22/2017 0:00 EST) Pathology Report: CYTOPATHOLOGY REPORT Reports generated via electronic interface contain original data; however they are lacking the format of the original report. Caution should be taken when reading/interpreti ng unformatted reports. Name: ? JAROD MANCINI ? Accession #: ? [id number] ? : ? 1950 (Age: 66) ??F ?Collect Date: ? 03/22/2017 ? Location: ? [facility] ? Receive Date: ? 03/23/2017 ? Provider: GIO YU MD Copy to: PAZ ANDREW STRAIGHT PIN MAKING MACHINE OPERATOR ? Final Report SPECIMEN ADEQUACY ? Satisfactory for Evaluation - assessment of transformation zone component not applicable ( e.g. atrophy, vaginal sample, hysterectomy) GENERAL CATEGORIZATION ? Negative for Intraepithelial Lesion or Malignancy ?? Infection History: Neg for HPV Other: Previous NIL Pap(s): 2016 Specimen/Source: ??Pap Test, Cervix, ThinPrep Imaging System with manual evaluation Document reviewed and electronically signed by: ? RUSSEL Moeller(ASCP) ? Report ??Date: 03/31/2017 11:14 HPV with Pap Test ? Date Ordered: ? 03/31/2017 ? Status: ?? Signed Out ?Date Complete: ? 04/01/2017 ? By: ??System Interface ? Date Reported: ? 04/01/2017 ? Interpretation RESULT: Negative for HPV. No E6 or E7 mRNA is detected from HPV types 16,18,31,33,35, 39,45,51,52,56,58, 59,66, and 68 by coupon and bond collection clerk mediated amplification. Comments Document reviewed and electronically signed by: ? System Interface ? Report date: 04/01/2017 By the signature above, the attending physician certifies that he/she has personally conducted a gross and/or microscopic examination of the described specimens and rendered or confirmed the above diagnosis. End of Report [facility] 03/22/2017 03/23/2017 Gio Yu MD PATHOLOGY ORDERABLES [facility] [address] [place] [address] documented in this encounter Visit Diagnoses Not on filedocumented in this encounter Care Teams Structural Steel Shop Supervisor Relationship Specialty Start Date End Date Bobby Aldridge MD [address] [place] [address] PCP - General 01/09/15 06/28/20 documented as of this encounter
--- OUTSIDE RECORDS SUMMARY | 2023-10-22 00:05 | XMS_ITS | Encounter Summary ---
Author Organization [facility] Address [address] [place] [address] Care Team Providers Care Patient Registration Supervisor Name Role Phone Unavailable Primary Care Provider Unavailabl e Encounter Details Date Type Department Care Team (Late st Contact Info) Description 09/15/2001 Results Only [facility] [address] [place] [address] Juan Whittaker MD [address] [facility] [address] [address] Social History Tobacco Use Types Packs/Day Years Used Date Smoking Tobacco: Never Assessed Sex and Gender Information Value Date Recorded Sex Assigned at Not on file Gender Identity Not on file Sexual Orientation Not on file documented as of this encounter Plan of Treatment Not on file documented as of this encounter Procedures Procedure Name Priority Date/Time Associated Diagnosis Comments SURGICAL PATHOLOGY Routine 09/15/2001 0:00 EDT documented in this encounter Results * SURGICAL PATHOLOGY (09/15/2001 0:00 EDT) Pathology Report: SURGICAL PATHOLOGY REPORT Reports generated via electronic interface contain original data; however they are lacking the format of the original report. Caution should be taken when reading/interpreti ng unformatted reports. Name: ? JAROD MANCINI ? Accession #: ? [id number] ? : ? 1950 (Age: 51) ??F ? Collect Date: ? 09/15/2001 ? Location: ? [facility] ? Receive Date: ? 09/15/2001 ? Provider: JUAN WHITTAKER MD Copy to: ALEXANDRA TRAN MD ? Final Pathologic Diagnosis: ? Uterus, endocervical curettage: 1. ?Mixed endometrial and cervical polyp. 2. ?Benign basalis layer endometrium; no hyperplasia or malignancy. Document reviewed and electronically signed by: Gem Live MD Report ??Date: 09/19/2001 18:10 By the signature above, the attending physician certifies that he/she has personally conducted a gross and/or microscopic examination of the described specimens and rendered or confirmed the above diagnosis. Specimen(s) Received: ? Endometrial curettings Clinical History: ? Irreg bleeding, menorrhagia on Progesterone therapy, polyps at hysteroscopy Gross Description: ? Received in formalin labelled Riffon and endometrial curettings is an aggregate of soft tissue fragments which measure 3.0 x 2.0 x 0.2 cm with a recognizable, flattened, polypoid structure measuring 1.1 x 0.9 x 0.4 cm. ??The specimen is entirely submitted as (A1) and (A2). BLOCK KEYA1 ?Specimen with polyp A2 ?Remaining specimen (Dr. Benton)/[facility] End of Report [facility] 09/15/2001 09/15/2001 15: 39 EDT Juan Whittaker MD PATHOLOGY ORDERABLES Performing Organization Address City/State/[facility] Co de Phone Number [facility] [address] [place] [address] documented in this encounter Visit Diagnoses Not on filedocumented in this encounter
--- OUTSIDE RECORDS SUMMARY | 2023-10-22 00:05 | XMS_ITS | Clinical Summary ---
Author Organization [facility] [place] [address] [place] [address] Care Team Providers Care Charge Preparation Technician Name Role Phone Emery Ruiz MD Primary Care Provider [phone] Allergies Active Allergy Reactions Criticality Noted Date Comments Amoxicillin 10/14/2020 Cephalexin Medium 07/15/2020 Other reaction(s): Hives Penicillins High 07/15/2020 Other reaction(s): Skin Rash Medications Medication Sig Dispensed Refills Start Date End Date Status acetaminophen (Tylenol) 500 mg Tablet Take by mouth. 02/06/2020 Active Vitamin C Powder Take by mouth. Acti ve desoximetasone (TOPICORT) 0.25 % OintmentIndications:L ichen simplex chronicus Apply to the neck rash twice a day for 3 weeks. 60 g 2 01/18/2023 Active pravastatin (Pravachol) 20 mg tablet Take 1 tablet by mouth daily. 90 tablet 3 08/06/2023 Active Active Problems Problem Noted Date Diagnosed Date Eczema 10/14/2020 Vitamin D deficiency 10/14/2020 Trigger finger of left thumb 10/14/2020 Chronic cough 04/19/2020 Hyperlipidemia 02/05/2015 Hyperglycemia 02/05/2015 Female bladder prolapse 02/26/2014 Resolved Problems Problem Noted Date Diagnosed Date Resolved Date Screening for colon cancer 10/14/2020 1 Pruritic rash 12/23/2015 01/17/2023 Encounters Date Type Department Care Team Description 08/09/2023 Orders Only Internal Medicine at [address] [address] Monisha Trevizo, RN Encounter for screening mammogram for malignant neoplasm of breast 08/09/2023 Orders Only Internal Medicine at [address] [place] [address] Monisha Trevizo, RN from Last 3 Months Immunizations Name Administration Dates Next Due Covid-19 (Moderna SPIKEVAX 2 023) Vaccine 50mcg( 12yrs+) 12/17/2022 Influenza (Fluzone HD) Quadr ivalent High Dose, Preservative Free 12/03/2022 Influenza (Fluzone HD) Triva lent High Dose 12/03/2022,12/26/2021,10/14/2020,2018 Influenza Quadrivalent with Preservative 11/30/2019,11/15/2017 Influenza Unspecified Formulation 12/13/2016,01/2016 Moderna Covid-19 Monovalent 12Yr+ (Distributor Operator 100mcg) 12/17/2022,11/28/2021,06/13/2021,2020,03/18/2020,02/20/2020 Tdap 06/28/2021,06/29/2005 Zoster (ShingRix), Recombinant 12/13/2017,2017 Zoster (Zostavax) LIVE 06/30/2011 Zoster, Unknown Formulation 12/15/2017 Family History Medical History Relation Comments Type 2 Diabetes Brother No Known Problems Daughter Alcohol Use Disorder Father Colon Polyps Father Pneumonia Father Coronary Artery Disease Mother Hyperlipidemia Mother Pacemaker Mother Alcohol Use Disorder Other Parkinsonism Other No Known Problems Sister No Known Problems Son Breast Cancer Neg Hx Cancer Neg Hx Cerebrovascular Accident Neg Hx Cervical Cancer Neg Hx Colorectal Cancer Neg Hx Dementia Neg Hx Ovarian Cancer Neg Hx Uterine Cancer Neg Hx Relation Status Comments Brother Alive Daughter Alive Father (Age 84) Mother (Age 96) Other Sister Alive Son Alive Social History Tobacco Use Types Packs/Day Years Used Date Smoking Tobacco: Never Smokeless Tobacco: Never Alcohol Use Standard Drinks/Week Comments Yes 0 (1 standard drink = 0.6 oz pure alcohol) drinks a low alcohol content wine about twice per day [facility] Utilities Answer Date Recorded In the past 12 months has [employer], oil, or water [employer] threatened to shut off services in your home? No 01/11/2023 Overall Financial Resource Strain (CARDIA) Answe r Date Recorded How hard is it for you to pa y for the very basics like food, housing, medical care, and heating? Not hard at all 01/11/2023 Exercise Vital Sign Answer Date Recorde d On average, how many days pe r week do you engage in moderate to strenuous exercise (like a brisk walk)? 7 days 01/11/2023 On average, how many minutes do you engage in exercise at this level? 30 min 01/11/2023 Hunger Vital Sign Answer Date Recorded Within the past 12 months, y ou worried that your food would run out before you got the money to buy more. Never true 01/12/20 23 Within the past 12 months, t he food you bought just didn't last and you didn't have money to get more. Never true 01/11/2023 PRAPARE - Transportation Answer Date Re corded In the past 12 months, has l ack of transportation kept you from medical appointments or from getting medications? No 12/30 In the past 12 months, has l ack of transportation kept you from meetings, work, or from getting things needed for daily living? No 01/11/2023 Housing Stability Vital Sign Answer Klaus e Recorded In the last 12 months, was t here a time when you were not able to pay the mortgage or rent on time? No 01/11/2023 In the last 12 months, how many places have you lived? 1 01/11/2023 In the last 12 months, was t here a time when you did not have a steady place to sleep or slept in a fci (including now)? No 01/11/2023 Education Answer Date Recorded What is the highest level of school you have completed or the highest degree you have received? Master's degree (e.g., MA, MS, Lupe, MEd, FILE CONVERSION OPERATOR, MANNY) 01/11/2023 Sex and Gender Information Value Date Recorded Sex Assigned at Female 09/11/2020 9:02 AM EDT Gender Identity Female 09/11/2020 9:02 AM EDT Sexual Orientation Straight 02/14/2021 6: 45 PM EST Last Filed Vital Signs Vital Sign Reading Time Taken Comments Blood Pressure 127/67 01/18/2023 9:46 AM EST Pulse 62 01/18/2023 9:46 AM EST Temperature 36.2 ??C (97.1 ??F) 01/18/2023 9:46 AM ES T Respiratory Rate 16 01/02/2022 8:52 AM EDT Oxygen Saturation 100% 01/18/2023 9:46 AM EST Inhaled Oxygen Concentration - - Weight 59.7 kg (131 lb 9.6 oz) 01/18/2023 9:46 A M EST Height 149.9 cm (4' 11.02) 01/18/2023 9:[address] Body Mass Index 26.57 01/18/2023 9:46 AM EST Plan of Treatment Health Maintenance Due Date Last Done Comments CT Colonography 1950 FIT DNA 1950 FIT 1950 Sigmoidoscopy (10 year) with FIT yearly 1950 Sigmoidoscopy 1950 Bone Density Scan 2014 Breast Cancer screening 05/09/2022 05/10/19 22 (Report in [facility]), 04/24/2020 (Outside per patient (enter details in comments)) Covid-19 Vaccine ( season) 2023 12/17/2022, 12/17/2022, 11/28/2021, Additional history exists Influenza (Flu) vaccine (1 of 1 - Influenza standard series) 10/31/2023 12/03/2022, 12/03/2022, 12/26/2021, Additional history exists Advance Directive 01/19/2024 Postponed from 2004 (Pending records/Scheduled) Pneumoccocal Vaccine: 65+ (1 of 1 - PCV) 01/19/2024 Postponed from 2014 (Patient Declined) Hepatitis C Screening 03/01/2024 Postpo lori from 05/25/1967 (Provider recommendation) Colonoscopy 07/15/2025 07/15/2020 (Outs bernice per patient (enter details in comments)) Colorectal Cancer Screening 07/15/2025 Tetanus vaccine 06/29/2031 06/28/2021, 06/29/2005 Zoster vaccine Completed 12/15/2017, 11/29, 09/02/2017, Additional history exists Tdap adult Completed 06/28/2021, 06/29/2005 Care Teams Charge Preparation Technician Relationship Specialty Start Date End Date Emery Ruiz MD [facility] [place], [place] [id number] PCP - General Internal Medicine 12/01/21
--- OUTSIDE RECORDS SUMMARY | 2023-10-22 00:05 | XMS_ITS | Encounter Summary ---
Author Organization [facility] Address [address] [place] [address] Care Team Providers Care Superannuation Clerk Name Role Phone Unavailable Primary Care Provider Unavailabl e Encounter Details Date Type Department Care Team (Late st Contact Info) Description 09/19/2012 Results Only [facility] [phone] Gio Kamara MD [address] [place] [address] Social History Tobacco Use Types Packs/Day Years [...] Diagnosis Comments PAP TEST- RESULT ONLY Routine 09/19/2012 0:00 EDT documented in this encounter Results * PAP TEST- RESULT ONLY (09/19/2012 0:00 EDT) Pathology Report: CYTOPATHOLOGY REPORT Reports generated via electronic interface contain original data; however they are lacking the format of the original report. Caution should be taken when reading/interpreti ng unformatted reports. Name: ? JAROD MANCINI ? Accession #: ? [id number] ? : ? 1950 (Age: 62) ??F ?Collect Date: ? 09/19/2012 ? Location: ? [facility] ? Receive Date: ? 09/21/2012 ? Provider: GIO KAMARA MD Copy to: SHAQUILLE LAKE MD ? Final Report SPECIMEN ADEQUACY ? Satisfactory for Evaluation - transformation zone component present GENERAL CATEGORIZATION ? Negative for Intraepithelial Lesion or Malignancy ?? Last Menstrual Period: 2004 Other: Additional clinical information: 01/07 negative pap Specimen/Source: ??Pap Test, Cervix/Endocervix, ThinPrep Imaging System with manual evaluation Document reviewed and electronically signed by: ? RUSSEL Escobar(ASCP) ? Report ??Date: 09/28/2012 14:21 HPV with Pap Test ? Date Ordered: ? 09/28/2012 ? Status: ?? Signed Out ?Date Complete: ? 09/30/2012 ? By: ??System Interface ? Date Reported: ? 09/30/2012 ? Interpretation RESULT: Negative for HPV. No E6 or E7 mRNA is detected from HPV types 16,18,31,33,35, 39,45,51,52,56,58, 59,66, and 68 by king maker mediated amplification. Comments Document reviewed and electronically signed by: ? System Interface ? Report date: 09/30/2012 By the signature above, the attending physician certifies that he/she has personally conducted a gross and/or microscopic examination of the described specimens and rendered or confirmed the above diagnosis. End of Report [facility] 09/19/2012 09/21/2012 Gio Kamara MD PATHOLOGY ORDERABLES [facility] [address] [place] [address] documented in this encounter Visit Diagnoses Not on filedocumented in this encounter
--- OUTSIDE RECORDS SUMMARY | 2023-10-22 00:05 | XMS_ITS | Encounter Summary ---
Author Organization [facility] Address [address] [place] [address] Care Team Providers Care Discharge Rn Name Role Phone Unavailable Primary Care Provider Unavailabl e Encounter Details Date Type Department Care Team (Late st Contact Info) Description 02/18/2007 Results Only [facility] - Maple conversion [address] [place] [address] Juan Whittaker MD 29 [facility] [address] [address] Social History Tobacco Use Types Packs/Day Years Used Date Smoking Tobacco: Never Assessed Sex and Gender Information Value Date Recorded Sex Assigned at Not on file Gender Identity Not on file Sexual Orientation Not on file documented as of this encounter Plan of Treatment Not on file documented as of this encounter Procedures Procedure Name Priority Date/Time Associated Diagnosis Comments CYTOPATHOLOGY Routine 02/18/2007 0:00 EST documented in this encounter Results * CYTOPATHOLOGY (02/18/2007 0:00 EST) Pathology Report: CYTOPATHOLOGY REPORT Reports generated via electronic interface contain original data; however they are lacking the format of the original report. Caution should be taken when reading/interpreti ng unformatted reports. Name: ? JAROD MANCINI ? Accession #: ? [id number] : ? 1950 (Age: 56) ??F ?Collect Date: ? 02/18/2007 Location: ? [facility] ? Receive Date: ? 02/23/2007 Provider: ?JUAN WHITTAKER MD Copy to: ? Specimen/Source: ?ThinPrep Pap Test, Cervix/Endocervix, processed on MongoDBPrep Imaging System, with manual evaluation Last Menstrual Period: ? SPECIMEN ADEQUACY ? Satisfactory for Evaluation - transformation zone component present GENERAL CATEGORIZATION ? Negative for Intraepithelial Lesion or Malignancy ? Document reviewed and electronically signed by: ? Cathryn Caro, [place](ASCP) ? Report Date: ??02/25/2007 10:43 End of Report [facility] 02/18/2007 02/23/2007 Juan Whittaker MD PATHOLOGY ORDERABLES [facility] [address] [place] [address] documented in this encounter Visit Diagnoses Not on filedocumented in this encounter
--- OUTSIDE RECORDS SUMMARY | 2023-10-22 00:05 | XMS_ITS | Encounter Summary ---
Author Organization [facility] Address [address] [place] [address] Care Team Providers Care Stem Assembler Name Role Phone Shaquille Aldridge MD Primary Care Provider [phone] Encounter Details Date Type Department Care Team (Late st Contact Info) Description 03/08/2015 Results Only [facility] [phone] Gio Yu MD [address] [place] [address] Social History Tobacco Use Types Packs/Day Years [...] Diagnosis Comments PAP TEST- RESULT ONLY Routine 03/08/2015 0:00 EST documented in this encounter Results * PAP TEST- RESULT ONLY (03/08/2015 0:00 EST) Pathology Report: CYTOPATHOLOGY REPORT Reports generated via electronic interface contain original data; however they are lacking the format of the original report. Caution should be taken when reading/interpreti ng unformatted reports. Name: ? JAROD MANCINI ? Accession #: ? [id number] ? : ? 1950 (Age: 64) ??F ?Collect Date: ? 03/08/2015 ? Location: ? [facility] ? Receive Date: ? 03/11/2015 ? Provider: GIO YU MD Copy to: SHAQUILLE ALDRIDGE MD ? Final Report SPECIMEN ADEQUACY ? Satisfactory for Evaluation - transformation zone component present GENERAL CATEGORIZATION ? Negative for Intraepithelial Lesion or Malignancy ?? Other: Additional clinical information: negative pap history-last pap negative in 2012 Specimen/Source: ??Pap Test, Cervix/Endocervix, ThinPrep Imaging System with manual evaluation Document reviewed and electronically signed by: ? RUSSEL Dozier(ASCP) ? Report ??Date: 03/12/2015 13:35 HPV with Pap Test ? Date Ordered: ? 03/12/2015 ? Status: ?? Signed Out ?Date Complete: ? 03/14/2015 ? By: ??System Interface ? Date Reported: ? 03/14/2015 ? Interpretation RESULT: Negative for HPV. No E6 or E7 mRNA is detected from HPV types 16,18,31,33,35, 39,45,51,52,56,58, 59,66, and 68 by section maintainer mediated amplification. Comments Document reviewed and electronically signed by: ? System Interface ? Report date: 03/14/2015 By the signature above, the attending physician certifies that he/she has personally conducted a gross and/or microscopic examination of the described specimens and rendered or confirmed the above diagnosis. End of Report [facility] 03/08/2015 03/11/2015 Gio Yu MD PATHOLOGY ORDERABLES [facility] [address] [place] [address] documented in this encounter Visit Diagnoses Not on filedocumented in this encounter Care Teams Stem Assembler Relationship Specialty Start Date End Date Shaquille Aldridge MD [address] [place] [address] PCP - General 01/09/15 06/28/20 documented as of this encounter
--- OUTSIDE RECORDS SUMMARY | 2023-10-22 00:05 | XMS_ITS | Encounter Summary ---
Author Organization [facility] Address [address] [place] [address] Care Team Providers Care Web Administrator Name Role Phone Unavailable Primary Care Provider Unavailabl e Encounter Details Date Type Department Care Team (Late st Contact Info) Description 10/16/2004 Results Only [facility] - Maple conversion [address] [place] [address] Juan Whittaker MD [address] [facility] [address] [address] Social History Tobacco Use Types [...] Priority Date/Time Associated Diagnosis Comments CYTOPATHOLOGY Routine 10/16/2004 0:00 EDT documented in this encounter Results * CYTOPATHOLOGY (10/16/2004 0:00 EDT) Pathology Report: CYTOPATHOLOGY REPORT Reports generated via electronic interface contain original data; however they are lacking the format of the original report. Caution should be taken when reading/interpreti ng unformatted reports. Name: ? JAROD MANCINI ? Accession #: ? [id number] : ? 1950 (Age: 54) ??F ?Collect Date: ? 10/16/2004 Location: ? [facility] ? Receive Date: ? 10/17/2004 Provider: ?JUAN WHITTAKER MD Copy to: ? Specimen/Source: ?ThinPrep Pap Test, Cervix/Endocervix, processed on Superbly ThinPrep Imaging System, with manual evaluation Last Menstrual Period: ? 06/03 Menstrual/Pregnanc y Status: ? Irregular Other: ? HPVA - HPV testing requested if ASC-US on the current ThinPrep Pap test. ? SPECIMEN ADEQUACY ? Satisfactory for Evaluation - assessment of transformation zone component not applicable ( e.g. atrophy, vaginal sample, hysterectomy) GENERAL CATEGORIZATION ? Negative for Intraepithelial Lesion or Malignancy ? Document reviewed and electronically signed by: ? RUSSEL Victoria(ASCP) ? Report Date: ??10/27/2004 12:59 End of Report [facility] 10/16/2004 10/17/2004 Juan Whittaker MD PATHOLOGY ORDERABLES [facility] [address] [place] [address] documented in this encounter Visit Diagnoses Not on filedocumented in this encounter
--- OUTSIDE RECORDS SUMMARY | 2023-10-22 00:05 | XMS_ITS | Encounter Summary ---
Author Organization [facility] Include [address] [facility] [address] Care Team Providers Care Kosher Inspector Name Role Phone Emery Ruiz MD Primary Care Provider [phone] Encounter Details Date Type Department Care Team (Late st Contact Info) Description 08/09/2023 Orders Only Internal Medicine at [address] [address] Monisha Trevizo RN Encounter for screening mammogram for malignant neoplasm of breast Social History Tobacco Use Types Packs/Day Years Used Date Smoking Tobacco: Never Smokeless Tobacco: Never Alcohol Use Standard Drinks/Week Comments Yes 0 (1 standard drink = 0.6 oz pure alcohol) drinks a low alcohol content wine about twice per day [facility] Utilities Answer Date Recorded In the past 12 months has [employer], gas, oil, or water [place] threatened to shut off services in your [...] place to sleep or slept in a nursing home (including now)? No 01/11/2023 Education Answer Date Recorded What is the highest level of school you have completed or the highest degree you have received? Master's degree (e.g., MA, MS, Lupe, MEd, ICT SECURITY SPECIALIST, MANNY) 01/11/2023 Sex and Gender Information Value Date Recorded Sex Assigned at Female 09/11/2020 9:02 AM EDT Gender Identity Female 09/11/2020 9:02 AM EDT Sexual Orientation Straight 02/14/2021 6: 45 PM EST documented as of this encounter Plan of Treatment Scheduled Orders Name Type Priority Associated Diagnoses Orde r Schedule Mammo Screening Cad and Narinder Left Imaging Routine Encounter for screening mammogram for malignant neoplasm of breast Expected: 08/09/2023 (Approximate), Expires: 02/07/2025 documented as of this encounter Visit Diagnoses Diagnosis Encounter for screening mammogram for malignant neoplasm of breast Other screening mammogram documented in this encounter Care Teams Kosher Inspector Relationship Specialty Start Date End Date Emery Ruiz MD [facility] [place] [address] PCP - General Internal Medicine 12/01/21 documented as of this encounter
--- OUTSIDE RECORDS SUMMARY | 2023-10-22 00:05 | XMS_ITS | Clinical Summary ---
Author Organization [facility] Address [address] [place] [address] Care Team Providers Care Dental Biller Name Role Phone Mulu Alfaro MD Primary Care Provider [phone] Social History Tobacco Use Types Packs/Day Years Used Date Smoking Tobacco: Never Assessed Sex and Gender Information Value Date Recorded Sex Assigned at Not on file Gender Identity Not on file Sexual Orientation Not on file Plan of Treatment Health Maintenance Due Date Last Done Comments Hepatitis C Screen 1950 RSV Immunization ( o r 60+ Years) (1 - 1-dose 60+ series) 2009 Fall Risk Screening 2014 COVID-19 Vaccine ( season) 2022 Care Teams Dental Biller Relationship Specialty Start Date End Date Mulu Alfaro MD [address] [place] [address] PCP - General 06/29/20
--- OUTSIDE RECORDS SUMMARY | 2023-10-22 00:05 | XMS_ITS | Encounter Summary ---
Author Organization [facility] Address [address] [place] [address] Care Team Providers Care Baler Name Role Phone Unavailable Primary Care Provider Unavailabl e Encounter Details Date Type Department Care Team (Late st Contact Info) Description 07/22/1999 Results Only [facility] - Maple conversion [address] [place] [address] Juan Whittaker MD 29 [facility] [address] [phone] Social History Tobacco Use Types [...] Priority Date/Time Associated Diagnosis Comments CYTOPATHOLOGY Routine 07/22/1999 0:00 EDT documented in this encounter Results * CYTOPATHOLOGY (07/22/1999 0:00 EDT) Pathology Report: CYTOPATHOLOGY REPORT Reports generated via electronic interface contain original data; however they are lacking the format of the original report. Caution should be taken when reading/interpreti ng unformatted reports. Name: ? JAROD MANCINI ? Accession #: ? [id number] : ? 1950 (Age: 49) ??F ?Collect Date: ? 07/22/1999 Location: ? [facility] ? Receive Date: ? 07/24/1999 Provider: ?JUAN WHITTAKER MD Copy to: ? Specimen/Source: ?Conventional Pap Test, Cervix/Endocervix Last Menstrual Period: ? 07/18/99 Other: ? Additional clinical information: Enlarged uterus. Irreg. menses ? SPECIMEN ADEQUACY ? Satisfactory for evaluation. GENERAL CATEGORIZATION ? Benign Cellular Changes DESCRIPTIVE DIAGNOSIS ? Predominance of coccobacilli present consistent with shift in vaginal jennifer. ? Document reviewed and electronically signed by: ? RUSSEL Moeller(ASCP) ? Report Date: ??07/25/1999 09:11 End of Report [facility] 07/22/1999 07/24/1999 Juan Whittaker MD PATHOLOGY ORDERABLES Performing Organization Address City/State/[facility] Co de Phone Number [facility] [address] [place] [address] documented in this encounter Visit Diagnoses Not on filedocumented in this encounter
--- OUTSIDE RECORDS SUMMARY | 2023-10-22 00:05 | XMS_ITS | Encounter Summary ---
Author Organization [facility] Address [address] [place] [address] Care Team Providers Care Bacteriology Technician Name Role Phone Unavailable Primary Care Provider Unavailabl e Encounter Details Date Type Department Care Team (Latest Contact Info) Description 01/07/2015 8:57 EST - 01/07/2015 23:59 EST Hospital Encounter [address] [address] Unknown, Provider, Discharge Disposition: Home or Self Care Social History Tobacco Use Types Packs/Day Years Used Date Smoking Tobacco: Never Assessed Sex and Gender Information Value Date Recorded Sex Assigned at Not on file Gender Identity Not on file Sexual Orientation Not on file documented as of this encounter Discharge Disposition Disposition Code Departure Means Destination Home or Self Long Term documented in this encounter Plan of Treatment Not on file documented as of this encounter Visit Diagnoses Not on filedocumented in this encounter
--- OUTSIDE RECORDS SUMMARY | 2023-10-22 00:05 | XMS_ITS | Encounter Summary ---
Author Organization [facility] Address [address] [place] [address] Care Team Providers Care Rotary Drum Tanner Name Role Phone Unavailable Primary Care Provider Unavailabl e Encounter Details Date Type Department Care Team (Late st Contact Info) Description 09/28/2003 Results Only [facility] - Maple conversion [address] [place] [address] Juan Whittaker MD 29 [facility] [address] [address] Social History Tobacco Use Types [...] Priority Date/Time Associated Diagnosis Comments CYTOPATHOLOGY Routine 09/28/2003 0:00 EDT documented in this encounter Results * CYTOPATHOLOGY (09/28/2003 0:00 EDT) Pathology Report: CYTOPATHOLOGY REPORT Reports generated via electronic interface contain original data; however they are lacking the format of the original report. Caution should be taken when reading/interpreti ng unformatted reports. Name: ? JAROD MANCINI ? Accession #: ? [id number] : ? 1950 (Age: 53) ??F ?Collect Date: ? 09/28/2003 Location: ? [facility] ? Receive Date: ? 10/01/2003 Provider: ?JUAN WHITTAKER MD Copy to: ? Specimen/Source: ?ThinPrep Pap Test, Cervix/Endocervix Last Menstrual Period: ? 08/18/2003 Menstrual/Pregnanc y Status: ? Irregular ? SPECIMEN ADEQUACY ? Satisfactory for Evaluation - transformation zone component present GENERAL CATEGORIZATION ? Negative for Intraepithelial Lesion or Malignancy ? Document reviewed and electronically signed by: ? Sabrina Gonzalez [facility](ASCP) ? Report Date: ??10/05/2003 11:15 End of Report [facility] 09/28/2003 10/01/2003 Juan Whittaker MD PATHOLOGY ORDERABLES [facility] [address] [place] [address] documented in this encounter Visit Diagnoses Not on filedocumented in this encounter
--- OUTSIDE RECORDS SUMMARY | 2023-10-22 00:05 | XMS_ITS | Encounter Summary ---
Author Organization [facility] Address [address] [place] [address] Care Team Providers Care Furnace Keeper Name Role Phone Unavailable Primary Care Provider Unavailabl e Encounter Details Date Type Department Care Team (Late st Contact Info) Description 01/14/2009 Orders Only [facility]- [facility] [phone] Gio Kamara MD [address] [place] [address] Social History Tobacco Use Types Packs/Day Years Used Date Smoking Tobacco: Never Assessed Sex and Gender Information Value Date Recorded Sex Assigned at Not on file Gender Identity Not on file Sexual Orientation Not on file documented as of this encounter Plan of Treatment Not on file documented as of this encounter Procedures Procedure Name Priority Date/Time Associated Diagnosis Comments HPV DETECTION, HIGH RISK TYPES Routine 01/14/2009 14:29 EST CYTOPATHOLOGY Routine 01/14/2009 0:00 EST documented in this encounter Results * HUMAN PAPILLOMA VIRUS DNA TEST (01/14/2009 14:29 EST) Specimen Description Cervix, ThinPrep vial [facility] Result Negative for HPV types 16, 18, 31, 33, 35, 39, 45, 51, 52, 56, 58, 59, and 68. [facility] Report Status Final 01/29/2009 [facility] 01/14/2009 14:2 9 EST 01/22/2009 14:29 EST Gio Kamara MD MICROBIOLOGY - GENER AL ORDERABLES [facility] [address] [place] [address] * CYTOPATHOLOGY (01/14/2009 0:00 EST) Pathology Report: CYTOPATHOLOGY REPORT ? Reports generated via electronic interface contain original data; ? however they are lacking the format of the original report. ? Caution should be taken when reading/interpreti ng unformatted reports. ? Name: ? JAROD MANCINI ? Accession #: ? [id number] ? : ? 1950 (Age: 58) ??F ?Collect Date: ? 01/14/2009 ? Location: ? [facility] ? Receive Date: ? 01/15/2009 ? Provider: ?GIO S GIGI MD ? Copy to: ? Specimen/Source: ?Pap Test, Cervix/Endocervix, ThinPrep Imaging System ? with manual evaluation ? Last Menstrual Period: ? Menstrual/Pregnanc y Status: ? Menopausal ? Other: ? HPVDX - HPV testing requested regardless of diagnosis on current ThinPrep Pap ?? test. ? SPECIMEN ADEQUACY ? Satisfactory for Evaluation ? - transformation zone component present ? GENERAL CATEGORIZATION ? Negative for Intraepithelial Lesion or Malignancy ? Document reviewed and electronically signed by: ? Miladis Verville,CT(ASCP) ? Report Date: ??01/22/2009 10:12 ? End of Report ? [facility] 01/14/2009 01/15/2009 Gio Kamara MD PATHOLOGY ORDERABLES [facility] [address] [place] [address] documented in this encounter Visit Diagnoses Not on filedocumented in this encounter
--- OUTSIDE RECORDS SUMMARY | 2023-10-22 00:05 | XMS_ITS | Encounter Summary ---
Author Organization [facility] Address [address] [place] [address] Care Team Providers Care Plasterer Maintenance Name Role Phone Unavailable Primary Care Provider Unavailabl e Encounter Details Date Type Department Care Team (Late st Contact Info) Description 02/20/2008 Before PRISM Converted Visit (Maple) [facility] - Maple conversion [address] [place] [address] Juan Whittaker MD 29 [facility] [address] [place] [address] Social History Tobacco Use Types Packs/Day Years Used Date Smoking Tobacco: Never Assessed Sex and Gender Information Value Date Recorded Sex Assigned at Not on file Gender Identity Not on file Sexual Orientation Not on file documented as of this encounter Plan of Treatment Not on file documented as of this encounter Procedures Procedure Name Priority Date/Time Associated Diagnosis Comments CYTOPATHOLOGY Routine 02/20/2008 0:00 EST documented in this encounter Results * CYTOPATHOLOGY (02/20/2008 0:00 EST) Pathology Report: CYTOPATHOLOGY REPORT ? Reports generated via electronic interface contain original data; ? however they are lacking the format of the original report. ? Caution should be taken when reading/interpreti ng unformatted reports. ? Name: ? JAROD MANCINI ? Accession #: ? [id number] ? : ? 1950 (Age: 57) ??F ?Collect Date: ? 02/20/2008 ? Location: ? [facility] ? Receive Date: ? 02/21/2008 ? Provider: ?JUAN WHITTAKER MD ? Copy to: ? Specimen/Source: ?Pap Test, Cervix/Endocervix, ThinPrep Imaging System ? with manual evaluation ? Last Menstrual Period: ? Other: ? Additional clinical information: Nl exam ? SPECIMEN ADEQUACY ? Satisfactory for Evaluation ? - transformation zone component present ? GENERAL CATEGORIZATION ? Negative for Intraepithelial Lesion or Malignancy ? Document reviewed and electronically signed by: ? Fan Cisneros, CT(ASCP) ? Report Date: ??02/28/2008 14:15 ? End of Report ? [facility] 02/20/2008 02/21/2008 Juan Whittaker MD PATHOLOGY ORDERABLES [facility] [address] [place] [address] documented in this encounter Visit Diagnoses Not on filedocumented in this encounter
--- OUTSIDE RECORDS SUMMARY | 2023-10-22 00:05 | XMS_ITS | Encounter Summary ---
Author Organization [facility] Address [address] [place] [address] Care Team Providers Care Artificial Marble Worker Name Role Phone Mulu Alfaro MD Primary Care Provider Encounter Details Date Type Department Care Team (Late st Contact Info) Description 07/16/2020 Lab Requisition [facility] Pathology & Laboratory Medicine - [facility] [address] [place] [address] Caroline Eddy MD [address] [place] [address] [place] [address] Encounter for other general examination Social History Tobacco Use Types Packs/Day Years Used Date Smoking Tobacco: Never Assessed Sex and Gender Information Value Date Recorded Sex Assigned at Not on file Gender Identity Not on file Sexual Orientation Not on file documented as of this encounter Plan of Treatment Not on file documented as of this encounter Procedures Procedure Name Priority Date/Time Associated Diagnosis Comments SURGICAL PATHOLOGY Today 07/15/2020 12 :31 EDT Encounter for other general examination documented in this encounter Results * SURGICAL PATHOLOGY (07/15/2020 12:31 EDT) Final Diagnosis A. COLON, ASCENDING, BIOPSY: - Tubular adenoma. - Deeper levels examined. 07/18/2020 8:[address] [facility] Attestation By the signature below, the attending physician certifies that they have 1) personally conducted a gross and/or microscopic examination of the described specimen(s), and/or personally interpreted the results of laboratory testing of the described specimen(s), and 2) personally rendered or confirmed the above diagnosis. 07/18/2020 8:[address] [facility] at 0837 Clinical History Hx of polyps; diverticulosis 07/18/2020 8:[address] [facility] Gross Description A. Received in formalin labelled with proper patient identification (initials R, J) and ascending colon polyp is a leigh to brown tissue (0.3 x 0.2 x 0.2 cm). Submitted intact in A1. Neftali Chavira 07/16/2020 9:30 07/18/2020 8:[address] [facility] Performing Lab [facility] 07/18/2020 8:[address] [facility] Scanned Images 07/18/2020 8:[address] [facility] Tissue ASCENDING COLON STRUCTURE / Unknown 07/15/2020 12:31 EDT 07/16/2020 8:37 EDT Caroline Eddy MD PATHOLOGY ORDERA [facility] [address] [place] [address] documented in this encounter Visit Diagnoses Diagnosis Encounter for other general examination documented in this encounter Care Teams Artificial Marble Worker Relationship Specialty Start Date End Date Mulu Alfaro MD [address] [facility] [place] [address] PCP - General 06/29/20 documented as of this encounter
--- OUTSIDE RECORDS SUMMARY | 2023-10-22 00:05 | XMS_ITS | Referral Summary ---
Author Organization [facility] Address [address] [place] [address] Care Team Providers Care Casting And Locker Room Servicer Name Role Phone Mulu Alfaro MD Primary Care Provider Social History Tobacco Use Types Packs/Day Years Used Date Smoking Tobacco: Never Assessed Sex and Gender Information Value Date Recorded Sex Assigned at Not on file Gender Identity Not on file Sexual Orientation Not on file Plan of Treatment Not on file Care Teams Casting And Locker Room Servicer Relationship Specialty Start Date End Date Mulu Alfaro MD [address] [facility] [place] [address] PCP - General 06/29/20
--- OUTSIDE RECORDS SUMMARY | 2023-10-22 00:05 | XMS_ITS | Encounter Summary ---
Author Organization [facility] Address [address] [place] [address] Care Team Providers Care Photographers' Model Name Role Phone Unavailable Primary Care Provider Unavailabl e Encounter Details Date Type Department Care Team (Late st Contact Info) Description 12/08/2005 Results Only [facility] - Maple conversion [address] [place] [address] Juan Whittaker MD 29 [facility] [address] [address] Social History Tobacco Use Types [...] Priority Date/Time Associated Diagnosis Comments CYTOPATHOLOGY Routine 12/08/2005 0:00 EDT documented in this encounter Results * CYTOPATHOLOGY (12/08/2005 0:00 EDT) Pathology Report: CYTOPATHOLOGY REPORT Reports generated via electronic interface contain original data; however they are lacking the format of the original report. Caution should be taken when reading/interpreti ng unformatted reports. Name: ? JAROD MANCINI ? Accession #: ? [id number] : ? 1950 (Age: 55) ??F ?Collect Date: ? 12/08/2005 Location: ? [facility] ? Receive Date: ? 12/09/2005 Provider: ?JUAN WHITTAKER MD Copy to: ? Specimen/Source: ?ThinPrep Pap Test, Cervix/Endocervix, processed on [employer] Fund[employer] Imaging System, with manual evaluation Last Menstrual Period: ? Other: ? Additional clinical information: Atrophic vag ? SPECIMEN ADEQUACY ? Satisfactory for Evaluation - transformation zone component absent GENERAL CATEGORIZATION ? Negative for Intraepithelial Lesion or Malignancy ? Document reviewed and electronically signed by: ? RUSSEL Jauregui(ASCP)(IAC) ? Report Date: ??12/11/2005 11:20 End of Report [facility] [place] 12/08/2005 12/09/2005 Juan Whittaker MD PATHOLOGY ORDERABLES Performing Organization Address City/State/[facility] Co de Phone Number [place] [place] [address] [place] [address] documented in this encounter Visit Diagnoses Not on filedocumented in this encounter
--- OUTSIDE RECORDS SUMMARY | 2023-10-22 00:05 | XMS_ITS | Encounter Summary ---
Author Organization [facility] Address [address] [place] [address] Care Team Providers Care Cell Tender Name Role Phone Unavailable Primary Care Provider Unavailabl e Encounter Details Date Type Department Care Team (Late st Contact Info) Description 09/25/2002 Results Only [facility] - Maple conversion [address] [place] [address] Juan Whittaker MD 29 [facility] [address] [address] Social History Tobacco Use Types [...] Priority Date/Time Associated Diagnosis Comments CYTOPATHOLOGY Routine 09/25/2002 0:00 EDT documented in this encounter Results * CYTOPATHOLOGY (09/25/2002 0:00 EDT) Pathology Report: CYTOPATHOLOGY REPORT Reports generated via electronic interface contain original data; however they are lacking the format of the original report. Caution should be taken when reading/interpreti ng unformatted reports. Name: ? JAROD MANCINI ? Accession #: ? [id number] : ? 1950 (Age: 52) ??F ?Collect Date: ? 09/25/2002 Location: ? [facility] ? Receive Date: ? 09/26/2002 Provider: ?JUAN WHITTAKER MD Copy to: ? Specimen/Source: ?ThinPrep Pap Test, Cervix/Endocervix Last Menstrual Period: ? 07/19/02 Menstrual/Pregnanc y Status: ? Irregular ? SPECIMEN ADEQUACY ? Satisfactory for Evaluation - transformation zone component present GENERAL CATEGORIZATION ? Negative for Intraepithelial Lesion or Malignancy ? Document reviewed and electronically signed by: ? RUSSEL Reddy(ASCP) ? Report Date: ??09/29/2002 08:41 End of Report [facility] [place] 09/25/2002 09/26/2002 Juan Whittaker MD PATHOLOGY ORDERABLES [facility] [address] [place] [address] documented in this encounter Visit Diagnoses Not on filedocumented in this encounter
--- OUTSIDE RECORDS SUMMARY | 2023-10-22 00:05 | XMS_ITS | Encounter Summary ---
Author Organization [facility] Address [address] [place] [address] Care Team Providers Care Associate Data Scientist Name Role Phone Unavailable Primary Care Provider Unavailabl e Encounter Details Date Type Department Care Team (Late st Contact Info) Description 08/01/2001 Results Only [facility] - Maple conversion [address] [place] [address] Juan Whittaker MD 29 [facility] [address] [address] Social History Tobacco Use Types [...] Priority Date/Time Associated Diagnosis Comments CYTOPATHOLOGY Routine 08/01/2001 0:00 EDT documented in this encounter Results * CYTOPATHOLOGY (08/01/2001 0:00 EDT) Pathology Report: CYTOPATHOLOGY REPORT Reports generated via electronic interface contain original data; however they are lacking the format of the original report. Caution should be taken when reading/interpreti ng unformatted reports. Name: ? JAROD MANCINI ? Accession #: ? [id number] : ? 1950 (Age: 51) ??F ?Collect Date: ? 08/01/2001 Location: ? [facility] ? Receive Date: ? 08/03/2001 Provider: ?JUAN WHITTAKER MD Copy to: ? Specimen/Source: ?ThinPrep Pap Test, Cervix/Endocervix Last Menstrual Period: ? Menstrual/Pregnanc y Status: ? Irregular Other: ? Additional clinical information: Prometrium. NL exam. ? SPECIMEN ADEQUACY ? Satisfactory for Evaluation - transformation zone component present GENERAL CATEGORIZATION ? Negative for Intraepithelial Lesion or Malignancy ? Document reviewed and electronically signed by: ? DEYANIRA Anderson(ASCP) ? Report Date: ??08/05/2001 07:04 End of Report [facility] [place] 08/01/2001 08/03/2001 Juan Whittaker MD PATHOLOGY ORDERABLES [facility] [address] [place] [address] documented in this encounter Visit Diagnoses Not on filedocumented in this encounter
--- OUTSIDE RECORDS SUMMARY | 2023-10-22 00:05 | XMS_ITS | Encounter Summary ---
Author Organization [facility] Address [address] [place] [address] Care Team Providers Care Manager Cargo Name Role Phone Unavailable Primary Care Provider Unavailabl e Encounter Details Date Type Department Care Team (Late st Contact Info) Description 01/07/2015 Results Only [facility] [phone] Kenny Lombardo, DO [address] [facility] [address] [place] [address] Social History Tobacco Use Types Packs/Day Years Used Date Smoking Tobacco: Never Assessed Sex and Gender Information Value Date Recorded Sex Assigned at Not on file Gender Identity Not on file Sexual Orientation Not on file documented as of this encounter Plan of Treatment Not on file documented as of this encounter Procedures Procedure Name Priority Date/Time Associated Diagnosis Comments SURGICAL PATHOLOGY Routine 01/07/2015 18 :26 EST documented in this encounter Results * SURGICAL PATHOLOGY (01/07/2015 18:26 EST) Pathology Report: SURGICAL PATHOLOGY REPORT Reports generated via electronic interface contain original data; however they are lacking the format of the original report. Caution should be taken when reading/interpret ing unformatted reports. Name: ? JAROD MANCINI Jose ? Accession #: ? [id number] ? : ? 1950 (Age: 64) ??F ? Collect Date: ? 01/07/2015 ? Location: ? [facility] ? Receive Date: ? 01/07/2015 ? Provider: KENNY LOMBARDO DO Copy to: [place]QU[place]LE [place] MD ? Final Pathologic Diagnosis: COLON, ASCENDING, POLYP, BIOPSY: - ??Tubular adenoma (1); no high-grade dysplasia. Document reviewed and electronically signed by: Gem Live MD Report ??Date: 01/09/2015 09:56 By the signature above, the attending physician certifies that he/she has personally conducted a gross and/or microscopic examination of the described specimens and rendered or confirmed the above diagnosis. Specimen(s) Received: Ascending colon polyp Clinical History: Colorectal screening Gross Description: ? Received in formalin labelled with proper patient identification (initials R, J) and ascending colon polyp is a single pink-leigh polypoid tissue (0.4 x 0.2 x 0.2 cm). The specimen is inked black, and is submitted intact in block 1. Geni Engel 01/08/2015 9:25 AM End of Report [facility] 01/07/2015 18:2 6 EST 01/07/2015 18:26 EST Kenny Lombardo DO PATHOLOGY ORDER JAYLENE [facility] [address] [place] [address] documented in this encounter Visit Diagnoses Not on filedocumented in this encounter
--- OUTSIDE RECORDS SUMMARY | 2023-10-22 00:05 | XMS_ITS | Encounter Summary ---
Author Organization [facility] Address [address] [place] [address] Care Team Providers Care Hearing Screener Name Role Phone Unavailable Primary Care Provider Unavailabl e Encounter Details Date Type Department Care Team (Late st Contact Info) Description 07/12/2000 Results Only [facility] - Maple conversion [address] [place] [address] Loli Oneill, [employer]AM [employer]BINE ASSEMBLER Social History Tobacco Use Types Packs/Day Years Used Date Smoking Tobacco: Never Assessed Sex and Gender Information Value Date Recorded Sex Assigned at Not on file Gender Identity Not on file Sexual Orientation Not on file documented as of this encounter Plan of Treatment Not on file documented as of this encounter Procedures Procedure Name Priority Date/Time Associated Diagnosis Comments CYTOPATHOLOGY Routine 07/12/2000 0:00 EDT documented in this encounter Results * CYTOPATHOLOGY (07/12/2000 0:00 EDT) Pathology Report: CYTOPATHOLOGY REPORT Reports generated via electronic interface contain original data; however they are lacking the format of the original report. Caution should be taken when reading/interpreti ng unformatted reports. Name: ? JAROD MANCINI ? Accession #: ? [id number] : ? 1950 (Age: 50) ??F ?Collect Date: ? 07/12/2000 Location: ? [facility] ? Receive Date: ? 07/14/2000 Provider: ?LOLI ONEILL [employer] TURBINE ASSEMBLER Copy to: ? Specimen/Source: ?ThinPrep Pap Test, Cervix/Endocervix Last Menstrual Period: ? 06/21/00 Hormonal/Contracep tive Status: ? Yes Previous Gynecologic Pathology: ? Benign cellular changes: ? SPECIMEN ADEQUACY ? Satisfactory for evaluation. GENERAL CATEGORIZATION ? Within Normal Limits ? Document reviewed and electronically signed by: ? RUSSEL Victoria(ASCP) ? Report Date: ??07/15/2000 08:44 End of Report [facility] [place] 07/12/2000 07/14/2000 Loli Oneill NP PATHOLOGY ORDERABLES [facility] [address] [place] [address] documented in this encounter Visit Diagnoses Not on filedocumented in this encounter
--- OUTSIDE RECORDS SUMMARY | 2023-10-22 00:06 | XMS_ITS | Encounter Summary ---
Author Organization [facility] Address [facility] [place] [address] Care Team Providers Care Supervisor Machine Workers Name Role Phone Tim Quinones MD Primary Care Provider [phone] Encounter Details Date Type Department Care Team (Late st Contact Info) Description 10/14/2020 Abstract Internal Medicine at [facility] [address] [place] [address] Monse Jose, [facility] Social History Tobacco Use Types Packs/Day Years [...] on filedocumented in this encounter Care Teams Supervisor Machine Workers Relationship Specialty Start Date End Date Tim Quinones MD [facility] [place] [address] PCP - General Internal Medicine 10/14/20 11/30/21 documented as of this encounter
--- OUTSIDE RECORDS SUMMARY | 2023-10-22 00:06 | XMS_ITS | Encounter Summary ---
Author Organization [facility] Address [facility] [place] [address] Care Team Providers Care Aviation Metalsmith Name Role Phone Tim Quinones MD Primary Care Provider [phone] Reason for Visit * Reason Onset Date Comments Medication Refill 02/24/2021 Encounter Details Date Type Department Care Team (Late st Contact Info) Description 02/24/2021 Refill Dermatology at [facility] [address] [place] [address] Yosef Pacheco MD [facility] [address] [address] Lichen simplex chronicus Social History Tobacco Use Types Packs/Day Years Used Date Smoking Tobacco: Never Smokeless Tobacco: Never Alcohol Use Standard Drinks/Week Comments Yes 0 (1 standard drink = 0.6 oz pure alcohol) drinks a low alcohol content wine about twice per day Overall Financial Resource Strain (CARDIA) Answe r Date Recorded How hard is it for you to pa y for the very basics like food, housing, medical care, and heating? Not hard at all 12/01/2020 Exercise Vital Sign Answer Date Recorde d On average, how many days pe r week do you engage in moderate to strenuous exercise (like a brisk walk)? 7 days 12/01/2020 On average, how many minutes do you engage in exercise at this level? 30 min 12/01/2020 Hunger Vital Sign Answer Date Recorded Within the past 12 months, y ou worried that your food would run out before you got the money to buy more. Never true 12/02/19 21 Within the past 12 months, t he food you bought just didn't last and you didn't have money to get more. Never true 12/01/2020 PRAPARE - Transportation Answer Date Re corded In the past 12 months, has l ack of transportation kept you from medical appointments or from getting medications? No 04/2020 In the past 12 months, has l ack of transportation kept you from meetings, work, or from getting things needed for daily living? No 12/01/2020 Housing Stability Vital Sign Answer Klaus e Recorded In the last 12 months, was t here a time when you were not able to pay the mortgage or rent on time? No 12/01/2020 In the last 12 months, how many places have you lived? 1 12/01/2020 In the last 12 months, was t here a time when you did not have a steady place to sleep or slept in a longterm (including now)? No 12/01/2020 Sex and Gender Information Value Date Recorded Sex Assigned at Female 09/11/2020 9:02 AM EDT Gender Identity Female 09/11/2020 9:02 AM EDT Sexual Orientation Straight 02/14/2021 6: 45 PM EST documented as of this encounter Plan of Treatment Not on file documented as of this encounter Visit Diagnoses Diagnosis Lichen simplex chronicus Lichenification and lichen simplex chronicus documented in this encounter Care Teams Aviation Metalsmith Relationship Specialty Start Date End Date Tim Quinones MD [facility] GENERAL [place] [address] PCP - General Internal Medicine 10/14/20 11/30/21 documented as of this encounter
--- OUTSIDE RECORDS SUMMARY | 2023-10-22 00:06 | XMS_ITS | Encounter Summary ---
[place] [address] Care Team Providers Care Field Support Specialist Name Role Phone Emery Ruiz MD Primary Care Provider [phone] Reason for Visit * Reason Onset Date Comments Other 02/04/2022 Faxed Referral t o PodiatryTo: PODIATRY [facility] [phone] Encounter Details Date Type Department Care Team (Late st Contact Info) Description 02/04/2022 Notes Only Internal [place] [id number] Liseth Cox CCMA Other (Faxed Referral to Podiatry/To: PODIATRNandini [facility]/ [phone]/) Social History Tobacco Use Types Packs/Day Years [...] place to sleep or slept in a jail (including now)? No 12/01/2020 Sex and Gender Information Value Date Recorded Sex Assigned at Female 09/11/2020 9:02 AM EDT Gender Identity Female 09/11/2020 9:02 AM EDT Sexual Orientation Straight 02/14/2021 6: 45 PM EST documented as of this encounter Plan of Treatment Not on file documented as of this encounter Visit Diagnoses Not on filedocumented in this encounter Care Teams Field Support Specialist Relationship Specialty Start Date End Date Emery Ruiz MD [facility] [place] [address] PCP - General Internal Medicine 12/01/21 documented as of this encounter
--- OUTSIDE RECORDS SUMMARY | 2023-10-22 00:06 | XMS_ITS | Encounter Summary ---
Author Organization [facility] Address [facility] [place] [address] Care Team Providers Care Nailhead Puncher Name Role Phone Emery Ruiz MD Primary Care Provider [phone] Reason for Referral * Consultation (Urgent) - Closed Specialty Diagnoses / Procedures Referred By Contac t Referred To Contact Dermatology Diagnoses Cellulitis of left upper extremity Yosef Malone PA [facility] [place] [address] [facility] Dermatology [address] [place] [address] Referral ID Status Reason Start Date Expiration Date V isits Requested Visits Authorized [id number] Closed Consult, Test & Treat 01/02/2022 01/02/2023 1 1 Reason for Visit * Reason Comments Blister On left wrist since 12/18/21, swollen. Was seen at urgent care and debrided. Recommended to f/u with pcp Encounter Details Date Type Department Care Team (Late st Contact Info) Description 01/02/2022 8:40 AM EDT Office Visit Internal Medicine at [address] [address] Yosef Malone PA [facility] [place] [address] Cellulitis of left upper extremity Social History Tobacco Use Types Packs/Day Years [...] place to sleep or slept in a skilled nursing (including now)? No 12/01/2020 Sex and Gender Information Value Date Recorded Sex Assigned at Female 09/11/2020 9:02 AM EDT Gender Identity Female 09/11/2020 9:02 AM EDT Sexual Orientation Straight 02/14/2021 6: 45 PM EST documented as of this encounter Last Filed Vital Signs Vital Sign Reading Time Taken Comments Blood Pressure 130/62 01/02/2022 8:52 AM EDT Pulse 69 01/02/2022 8:52 AM EDT Temperature 36.9 ??C (98.4 ??F) 01/02/2022 8:52 AM ED T Respiratory Rate 16 01/02/2022 8:52 AM EDT Oxygen Saturation 100% 01/02/2022 8:52 AM EDT Inhaled Oxygen Concentration - - Weight 59.9 kg (132 lb) 01/02/2022 8:52 AM EDT Height 160 cm (5' 3) 01/02/2022 8:52 AM EDT Body Mass Index 23.38 01/02/2022 8:52 AM EDT documented in this encounter Progress Notes * Yosef Malone PA - 01/02/2022 8:40 AM EDT Images from the original note were not included. General Internal Medicine Visit Subjective: Patient Information: Sheila Salazar is a 71 y.o. female, a patient of Emery Ruiz MD, whopresents today for: Chief Complaint Patient presents with ??? Blister On left wrist since 12/18/21, swollen. Was seen at urgent care and debrided. Recommended to f/u with pcp Pt c/o left wrist blister that developed about 2 weeks ago on 12/18/21. 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 While there, a nurse noticed an asymptomatic blister on her wrist. She went to urgent care in [place] and it was unroofed and cleaned the same day. Located over left ulnar styloid. She typically wears a metal bracelet and watch on left wrist. She is not wearing them today. She has never had a metal allergy in the past The lesion is slowly healing, recently dried up with moderate surrounding erythema. The area is tender and throbs at night. She has been applying hydrogen peroxide daily but has not tried anything else. Denies any viral prodrome of fever, chills, WILBURN, fatigue. Medications 01/01/22 1333 Medication Sig Taking? Vitamin C Powder Take by mouth. Yes desoximetasone (TOPICORT) 0.25 % Ointment Apply to the neck rash twice a day for 3 weeks. Yes cholecalciferol, Vitamin D3, (Vitamin D3) 1,000 unit Tablet Take by mouth daily. Yes UNABLE TO FIND EZ Tears Yes ascorbic acid, vitamin C, (VITAMIN C) 500 mg Tablet, Chewable Take by mouth. Yes acetaminophen (Tylenol) 500 mg Tablet Take by mouth. Yes ofloxacin (Floxin) 0.3 % Drops Place 5 drops into the left ear daily. Patient not taking: Reported on 01/01/2022 benzonatate (TESSALON) 200 mg Capsule Every 8 hours. triamcinolone (KENALOG) 0.1 % Cream triamcinolone acetonide 0.1 % topical cream APPLY A THIN LAYER TO THE AFFECTED AREA(S) BY TOPICAL ROUTE 2 TIMES PER DAY ibuprofen (Advil) 600 mg Tablet Take by mouth. Objective: There were no vitals taken for this visit. BP Readings from Last 3 Encounters: 06/18/21 129/76 12/13/20 118/73 Wt Readings from Last 3 Encounters: 06/18/21 58.2 kg (128 lb 5 oz) 12/13/20 60.3 kg (133 lb) Physical Exam Skin: Comments: Left wrist: 2cm area of erythema, no drainage, dry center, TTP. Assessment and Plan: I discussed the following diagnosis/diagnoses and differential diagnoses in detail with Ms. Salazar, including treatment options and she agrees with the plan outlined below. All chronic problemslisted in H&P are stable unless otherwise noted below. 1. Cellulitis of left upper extremity - Base on her history, most likely a contact allergy to her jewelery that causes a blister. Unroofing may have causes a bacterial infection that delayed healing. Will treated with topical mupirocin. Advised to stop hydrogen peroxide. - mupirocin (Bactroban) 2 % Ointment; Apply topically 2 times daily. Dispense: 22 g; Refill: 0 - Referral to Dermatology - Ms. Salazar was given the necessary information on her condition and instructed to return toclinic if symptoms continue or worsen and to follow-up with Emery Ruiz MD for chronic management as needed. - An After Visit Summary was either printed and given to the patient or provided via the patient portal at the patient's request. Future Appointments Date Time Provider Department Center 01/16/2022 8:40 AM Emery Ruiz MD [facility] documented in this encounter Plan of Treatment Scheduled Referrals Name Type Priority Associated Diagnoses Order Schedule Referral to Dermatology Outpatient Referral Routine Cellulitis of left upper extremity Ordered: 01/02/2022 documented as of this encounter Visit Diagnoses Diagnosis Cellulitis of left upper extremity Cellulitis and abscess of upper arm and forearm documented in this encounter Care Teams Nailhead Puncher Relationship Specialty Start Date End Date Emery Ruiz MD [facility] [place] [address] [place] [address] PCP - General Internal Medicine 12/01/21 documented as of this encounter
--- OUTSIDE RECORDS SUMMARY | 2023-10-22 00:06 | XMS_ITS | Encounter Summary ---
[place] [address] Care Team Providers Care Survey And Mapping Technician Name Role Phone Tim Quinones MD Primary Care Provider [phone] Reason for Visit * Reason Onset Date Comments Triage 04/21/2021 Encounter Details Date Type Department Care Team (Late st Contact Info) Description 04/21/2021 Telephone [place] [id number] Janelle Perez, school psychology professor Social History Tobacco Use Types Packs/Day Years [...] place to sleep or slept in a fpc (including now)? No 12/01/2020 Sex and Gender Information Value Date Recorded Sex Assigned at Female 09/11/2020 9:02 AM EDT Gender Identity Female 09/11/2020 9:02 AM EDT Sexual Orientation Straight 02/14/2021 6: 45 PM EST documented as of this encounter Miscellaneous Notes * Telephone Encounter - Janelle Perez RN - 04/21/2021 1:36 PM EST High Threat Infection Intake Questions Nurse Triage Assessment Review of Pertinent Systems & Pertinent positive/negative findings (e.g. Skin, Neurological, Respiratory, Cardiac, GI, , and Musculoskeletal): Chief Complaint: vomiting When did your symptoms start? 04/21/21 Are symptoms within 48 hours of receiving Covid 19 Vaccine? No If yes, the following symptoms would be considered a side effect: Fatigue, Headache, Sore injection site, Chills, Muscle pain, Joint pain, Fever. Do not test for Covid 19 unless symptoms persist past 48 hours. People with any of these acute symptoms may have COVID-19: Detail of symptoms: Cough: no Shortness of Breath: no Fever: no New Loss of Taste or Smell: no Check all that apply: [] Fatigue [] Muscle or Body Aches [] Headache [] Sore Throat [] Congestion or runny nose [x] Nausea or vomiting [x] Diarrhea Pediatrics: [] Retractions/belly breathing [] Skin/Lip color changes [] Wheezing [] Stridor [] Eating/Drinking normally [] Voiding normally Additional details: none IF EMPLOYEE: Does employee qualify for Rapid Testing: No Yes if employee scheduled to work in hospital in less than 24 hours and has *primary role in directpatient care (inpatient or outpatient) or surgeon. *primary role: Attending, Resident/Chute Loader, ANNA, RN, COREY, MA Is patient a employee or household member of employee: Yes If yes, please state self for employee or name of employee living with HH member: self Have you been in contact with anyone suspected or confirmed to have COVID-19 in the past 14 days? No Plan/Disposition: If ordering test, ordering PCP: harper lopez Date, time and location of test: 04/21/21 1430 leb If sending for testing ask the following: Have you been diagnosed with Covid 19 in the past 90 days? No Are you fully vaccinated for Covid 19? 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 Patient/Responsible green party voices an understanding of advice: yes Patient/Responsible green party intends to comply with actions/disposition: yes TESTING CRITERIA: Asymptomatic patients: Criteria for testing- member of or healthcare worker at a skilled nursing/fpc, chcf facility or rn long term care care facility (LTCF), and all first responders. Pre procedural patients requiring admission or determined high risk by provider. * patient/ employee returning to college/boarding school, or returning to work requirement. Exposure as determined by State, School, or Occupational Medicine at . Symptomatic Patients: People with COVID-19 have had a wide range of symptoms reported - ranging from mild symptoms to severe illness. Symptoms may appear 2-14 days after exposure to the virus. Consider testing if these symptoms cannot otherwise be explained. All Patients - If YES to exposure and NO to symptoms - Proceed with Quarantine Instructions. [facility], [facility], or Occupational Medicine may request testing. If NO to symptoms/exposure - Proceed with Nurse Triage - Proceed with appropriate instructions based on Triage protocol If YES to symptoms - Proceed with testing protocol - Proceed with Isolation instructions Name of Triage Guideline/Protocol used: Utilized High Threat Infection Screening for Covid 19 Hotline as directed by incident command and infectious disease based on CDC guidelines, [facility] of Health and Human Services, and [facility] policy. Important instructions for patient when scheduling for testing: -No dogs allowed in car unless in kennel or behind gated section, due to risk to the clinical staff. -Follow quarantine/isolation instructions (pamphlets available to hand out at testing location Education/Instructions: Isolation Instructions: 1. Stay home from work, school, and away from other public places. If you must go out, avoid using any kind of public transportation, ridesharing, or taxis. 2. Monitor your symptoms carefully. If your symptoms get worse, call your healthcare provider immediately. 3. Get rest and stay hydrated. 4. If you have a medical appointment, call the healthcare provider ahead of time and tell them thatyou have or may have COVID-19. 5. For medical emergencies, call 911 and notify the dispatch personnel that you have or may have COVID-19. 6. Cover your cough and sneezes. 7. Wash your hands often with soap and water for at least 20 seconds or clean your hands with an alcohol-based hand director insurance that contains at least 60% alcohol. 8. As much as possible, stay in a specific room and away from other people in your home. Also, you should use a separate bathroom, if available. If you need to be around other people in or outside ofthe home, wear a facemask. 9. Avoid sharing personal items with other people in your household, like dishes, towels, and bedding 10. Clean all surfaces that are touched often, like counters, tabletops, and doorknobs. Use household cleaning sprays or wipes according to the label instructions. 11. You can use acetaminophen or ibuprofen as directed for fever. Emergency Warning Signs: If you develop emergency warning signs for COVID-19 get medical attention immediately. Emergency warning signs include: ??? Difficulty breathing or shortness of breath ??? Persistent pain or pressure in the chest ??? New confusion or inability to arouse ??? Bluish lips or face This list is not all inclusive. Please consult your medical provider for any other symptoms that are severe or concerning. Helpful definitions Close contact is described as: Being within approximately 6 feet (2 meters) of a COVID-19 case for a prolonged period of time; close contact can occur while caring for, living with, visiting, or sharing healthcare waiting area or room with a COVID-19 case. OR Having direct Contact with infectious secretions of a COVID-19 case (e.g., being coughed on) Fever Definition: 100.0 F or higher Additional information: ??? Recommend CDC website for helpful information on self-care and quarantine at home o https://www.cdc.gov/ and choose more information on Covid-19 *May test at [place] only. documented in this encounter Plan of Treatment Not on file documented as of this encounter Visit Diagnoses Not on filedocumented in this encounter Care Teams Survey And Mapping Technician Relationship Specialty Start Date End Date Tim Quinones MD [facility] GENERAL [place] [address] PCP - General Internal Medicine 10/14/20 11/30/21 documented as of this encounter
--- OUTSIDE RECORDS SUMMARY | 2023-10-22 00:06 | XMS_ITS | Encounter Summary ---
Author Organization [facility] [place] [address] Care Team Providers Care Assistant Grocery Store Manager Name Role Phone Emery Ruiz MD Primary Care Provider [phone] Encounter Details Date Type Department Care Team (Latest Contact Info) Description 01/11/2023 Travel Social History Tobacco Use Types Packs/Day Years Used Date Smoking Tobacco: Never Smokeless Tobacco: Never Alcohol Use Standard Drinks/Week Comments Yes 0 (1 standard drink = 0.6 oz pure alcohol) drinks a low alcohol content wine about twice per day [facility] Utilities Answer Date Recorded In the past 12 months has [employer], gas, oil, or water [employer] threatened to shut off services in your [...] in a skilled nursing (including now)? No 01/11/2023 Education Answer Date Recorded What is the highest level of school you have completed or the highest degree you have received? Master's degree (e.g., MA, MS, Lupe, MEd, ELECTRONIC WARFARE SPECIALIST, MANNY) 01/11/2023 Sex and Gender Information Value Date Recorded Sex Assigned at Female 09/11/2020 9:02 AM EDT Gender Identity Female 09/11/2020 9:02 AM EDT Sexual Orientation Straight 02/14/2021 6: 45 PM EST documented as of this encounter Plan of Treatment Not on file documented as of this encounter Visit Diagnoses Not on filedocumented in this encounter Care Teams Assistant Grocery Store Manager Relationship Specialty Start Date End Date Emery Ruiz MD [facility] GENER[facility] [place] [address] PCP - General Internal Medicine 12/01/21 documented as of this encounter
--- OUTSIDE RECORDS SUMMARY | 2023-10-22 00:06 | XMS_ITS | Encounter Summary ---
Author Organization [facility] [place] [address] Care Team Providers Care Generator Rebuilder Name Role Phone Emery Ruiz MD Primary Care Provider [phone] Encounter Details Date Type Department Care Team (Latest Contact Info) Description 01/02/2022 Travel Social History Tobacco Use Types Packs/Day [...] place to sleep or slept in a custodial (including now)? No 12/01/2020 Sex and Gender Information Value Date Recorded Sex Assigned at Female 09/11/2020 9:02 AM EDT Gender Identity Female 09/11/2020 9:02 AM EDT Sexual Orientation Straight 02/14/2021 6: 45 PM EST documented as of this encounter Plan of Treatment Not on file documented as of this encounter Visit Diagnoses Not on filedocumented in this encounter Care Teams Generator Rebuilder Relationship Specialty Start Date End Date Emery Ruiz MD [facility] [place] [address] PCP - General Internal Medicine 12/01/21 documented as of this encounter
--- OUTSIDE RECORDS SUMMARY | 2023-10-22 00:06 | XMS_ITS | Encounter Summary ---
Author Organization [facility] [place] [address] Care Team Providers Care Oracle Erp Architect Name Role Phone Emery Ruiz MD Primary Care Provider [phone] Encounter Details Date Type Department Care Team (Latest Contact Info) Description 01/01/2022 Travel Social History Tobacco Use Types Packs/Day [...] place to sleep or slept in a long-term (including now)? No 12/01/2020 Sex and Gender Information Value Date Recorded Sex Assigned at Female 09/11/2020 9:02 AM EDT Gender Identity Female 09/11/2020 9:02 AM EDT Sexual Orientation Straight 02/14/2021 6: 45 PM EST documented as of this encounter Plan of Treatment Not on file documented as of this encounter Visit Diagnoses Not on filedocumented in this encounter Care Teams Oracle Erp Architect Relationship Specialty Start Date End Date Emery Ruiz MD [facility] GENER[place] [address] PCP - General Internal Medicine 12/01/21 documented as of this encounter
--- OUTSIDE RECORDS SUMMARY | 2023-10-22 00:06 | XMS_ITS | Encounter Summary ---
Author Organization [facility] Address [facility] [place] [address] Care Team Providers Care Electric Power Machine Operator Name Role Phone Tim Quinones MD Primary Care Provider [phone] Encounter Details Date Type Department Care Team (Late st Contact Info) Description 02/07/2021 3:40 PM EST Ancillary Procedure [place] [address] Tim Quinones MD [facility] GENER[place] [address] Social History Tobacco Use Types Packs/Day Years [...] place to sleep or slept in a assisted (including now)? No 12/01/2020 Sex and Gender Information Value Date Recorded Sex Assigned at Female 09/11/2020 9:02 AM EDT Gender Identity Female 09/11/2020 9:02 AM EDT Sexual Orientation Straight 02/14/2021 6: 45 PM EST documented as of this encounter Plan of Treatment Not on file documented as of this encounter Procedures Procedure Name Priority Date/Time Associated Diagnosis Comments FILM LIBRARY- STORAGE ONLY DXA IMAGES Routine 02/07/2021 3:36 PM EST documented in this encounter Results * Film Library- Storage Only DXA Images (02/07/2021 3:36 PM EST) Narrative [facility] - 02/07/2021 3:36 PM EST This exam is auto-finalizing. It's purpose is for storage only. Tim Quinones MD IMG FILM LIBRARY ORD ERABLES [place], [place] documented in this encounter Visit Diagnoses Not on filedocumented in this encounter Care Teams Electric Power Machine Operator Relationship Specialty Start Date End Date Tim Quinones MD [facility] [place] [address] PCP - General Internal Medicine 10/14/20 11/30/21 documented as of this encounter
--- OUTSIDE RECORDS SUMMARY | 2023-10-22 00:06 | XMS_ITS | Encounter Summary ---
Author Organization [facility] [place] [address] Care Team Providers Care Flower Pot Press Operator Name Role Phone Emery Ruiz MD Primary Care Provider [phone] Encounter Details Date Type Department Care Team (Latest Contact Info) Description 01/18/2023 Travel Social History Tobacco Use Types Packs/Day Years Used Date Smoking Tobacco: Never Smokeless Tobacco: Never Alcohol Use Standard Drinks/Week Comments Yes 0 (1 standard drink = 0.6 oz pure alcohol) drinks a low alcohol content wine about twice per day [facility] Utilities Answer Date Recorded In the past 12 months has [employer], gas, oil, or water [employer] threatened to shut off services in your [...] place to sleep or slept in a alf (including now)? No 01/11/2023 Education Answer Date Recorded What is the highest level of school you have completed or the highest degree you have received? Master's degree (e.g., MA, MS, Lupe, MEd, HYDROELECTRIC MACHINERY MECHANIC HELPER, MANNY) 01/11/2023 Sex and Gender Information Value Date Recorded Sex Assigned at Female 09/11/2020 9:02 AM EDT Gender Identity Female 09/11/2020 9:02 AM EDT Sexual Orientation Straight 02/14/2021 6: 45 PM EST documented as of this encounter Plan of Treatment Not on file documented as of this encounter Visit Diagnoses Not on filedocumented in this encounter Care Teams Flower Pot Press Operator Relationship Specialty Start Date End Date Emery Ruiz MD [facility] GENER[place] [address] PCP - General Internal Medicine 12/01/21 documented as of this encounter
--- OUTSIDE RECORDS SUMMARY | 2023-10-22 00:06 | XMS_ITS | Encounter Summary ---
Author Organization [facility] [place] [address] Care Team Providers Care Government Affairs Specialist Name Role Phone Emery Ruiz MD Primary Care Provider [phone] Encounter Details Date Type Department Care Team (Latest Contact Info) Description 12/27/2021 Travel Social History Tobacco Use Types Packs/Day [...] place to sleep or slept in a detention (including now)? No 12/01/2020 Sex and Gender Information Value Date Recorded Sex Assigned at Female 09/11/2020 9:02 AM EDT Gender Identity Female 09/11/2020 9:02 AM EDT Sexual Orientation Straight 02/14/2021 6: 45 PM EST documented as of this encounter Plan of Treatment Not on file documented as of this encounter Visit Diagnoses Not on filedocumented in this encounter Care Teams Government Affairs Specialist Relationship Specialty Start Date End Date Emery Ruiz MD [facility] [place] [place] [address] PCP - General Internal Medicine 12/01/21 documented as of this encounter
--- OUTSIDE RECORDS SUMMARY | 2023-10-22 00:06 | XMS_ITS | Encounter Summary ---
Author Organization [facility] Address [facility] [place] [address] Care Team Providers Care Engine Lathe Set Up Operator Tool Name Role Phone Emery Ruiz MD Primary Care Provider [phone] Reason for Visit * Reason Comments Annual Exam Encounter Details Date Type Department Care Team (Late st Contact Info) Description 01/18/2023 9:40 AM EST Office Visit Internal Medicine at [address] [id number] Emery Ruiz MD [facility] [place] [address] Annual physical exam; Hyperlipidemia, unspecified hyperlipidemia type; Vitamin D deficiency; Lichen simplex chronicus Social History Tobacco Use Types Packs/Day Years Used Date Smoking Tobacco: Never Smokeless Tobacco: Never Alcohol Use Standard Drinks/Week Comments Yes 0 (1 standard drink = 0.6 oz pure alcohol) drinks a low alcohol content wine about twice per day [facility] Utilities Answer Date Recorded In the past 12 months has [employer], gas, oil, or water [employer] threatened to shut off services in your [...] Master's degree (e.g., MA, MS, Lupe, MEd, SKI TECHNICIAN, MANNY) 01/11/2023 Sex and Gender Information Value [...] 01/18/2023 9:46 AM ES T Respiratory Rate - - Oxygen Saturation 100% 01/18/2023 9:46 AM EST Inhaled Oxygen Concentration - - Weight 59.7 kg (131 lb 9.6 oz) 01/18/2023 9:46 A M EST Height 149.9 cm (4' 11.02) 01/18/2023 9:[address] Body Mass Index 26.57 01/18/2023 9:46 AM EST documented in this encounter Progress Notes * Emery Ruiz MD - 01/18/2023 9:40 AM EST Subjective: Patient ID: Sheila Salazar is a 72 y.o. female seen for annual exam. 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 was recently diagnosed with lung cancer recurrence - starting on chemotherapy and planned for radiation. Fortunately does appear to be treatable/curable. Has walked/run for at least 25 minutes for nearly 1000 days in a row. Has had some dental issues this summer - needed two crowns and a bridge. Bridge fell out recently but has an appointment. HLD - LDL 141, TC 308, HDL 160 (08/21). ASCVD ~ 12.8%. Could be lowered by ~ 3% with a statin. HM: - had a mammogram in July outside - had a DEXA scan in July which showed normal bone density - had COVID and influenza vaccines in November - colonoscopy in 06/2020; repeat in 5 years - no vision, hearing, memory concerns - will get a pneumovax when her is better recovered post-chemo Questionnaire Responses: 01/11/2023 3:55 PM [facility] Primary Care Responses PROMIS 10-Rate of fatigue None Activity - low level (bathing, dressing, eating, mobility, using toilet, grooming) No, I do not have difficulty with these activities Activity - high level (laundry, housekeeping, banking, shopping, use phone, food prep, transportation, taking meds) No, I do not have difficulty with these activities I have fallen in the past year. No Sometimes I feel unsteady when I am walking. No I am worried about falling. No Who is taking survey I am (patient) 01/11/2023 3:46 PM REVIEW OF SYSTEMS Constitutional None of the above Ear / nose / throat / mouth None of the above Eyes None of the above Respiratory None of the above Cardiovascular None of the above Gastrointestinal None of the above Skin, hair Dry skin Other symptoms with skin or hair Musculoskeletal None of the above Neurological None of the above Hematologic / Lymphatic None of the above Genitourinary None of the above Other Symptoms no health symptoms- labs in July 2022 showed continued high total cholesterol (308) and HDL continued to be high (160)- this is similar to previous labs the last several years, but this is first time the total cholesterol is over 300, so hope to get advice about whether to start a med ication- would prefer not to since I don't take other meds, but will if it's recommended. Thanks. 01/11/2023 PHQ-9: Responses Post 06/29/22 Conversion Little interest or pleasure Not at all Down, depressed, hopeless Not at all PHQ-2 Subscore 0 Objective: BP 127/67 (BP Location (NBP): Left arm, Patient Position: Sitting, BP Cuff Sizes: Adult (25-34 cm)) Pulse 62 Temp 36.2 ??C (97.1 ??F) (Temporal) Ht 149.9 cm (4' 11.02) Wt 59.7 kg (131 lb 9.6oz) SpO2 100% BMI 26.57 kg/m?? Wt Readings from Last 3 Encounters: 01/18/23 59.7 kg (131 lb 9.6 oz) 01/02/22 59.9 kg (132 lb) 06/18/21 58.2 kg (128 lb 5 oz) Physical Exam Constitutional: Appearance: She is normal weight. HENT: Right Ear: Ear canal and external ear normal. There is impacted cerumen. Left Ear: Tympanic membrane, ear canal and external ear normal. Mouth/Throat: Mouth: Mucous membranes are moist. Pharynx: Oropharynx is clear. Neck: Vascular: No carotid bruit. Cardiovascular: Rate and Rhythm: Normal rate and regular rhythm. Pulses: Normal pulses. Heart sounds: Normal heart sounds. Pulmonary: Effort: Pulmonary effort is normal. Breath sounds: Normal breath sounds. Abdominal: General: Abdomen is flat. Bowel sounds are normal. Palpations: Abdomen is soft. Musculoskeletal: Right lower leg: No edema. Left lower leg: No edema. Lymphadenopathy: Cervical: No cervical adenopathy. Skin: General: Skin is warm and dry. Capillary Refill: Capillary refill takes less than 2 seconds. Findings: No rash. Neurological: Mental Status: She is alert and oriented to person, place, and time. Psychiatric: Mood and Affect: Mood normal. Behavior: Behavior normal. Thought Content: Thought content normal. Labs: No results found for: HA1C No results found for: CREATININE Lipid Panel TSH normal (08/21) CBC, CMP normal (2020) A1c 5.4% (2020) Assessment and Plan: Sheila Salazar was seen for annual exam. See plan as outlined below. Annual physical exam Remains in excellent health. Will get pneumovax later this winter. Hyperlipidemia, unspecified hyperlipidemia type ASCVD 12% primarily driven by her age. She is open to a statin to lower to < 10%. Repeat lipids in 6 months (external). - pravastatin (Pravachol) 10 mg tablet; Take 1 tablet by mouth daily. Vitamin D deficiency She doesn't remember having a low vitamin D in the past. Will check externally when she gets her repeat lipids. Not currently taking a supplement. Lichen simplex chronicus - desoximetasone (TOPICORT) 0.25 % Ointment; Apply to the neck rash twice a day for 3 weeks. Health maintenance updated: Health Maintenance Topic Date Due Breast Cancer screening 03/01/2023 (Originally 05/09/2022) Bone Density Scan 03/01/2023 (Originally 2014) Advance Directive 01/19/2024 (Originally 2004) Pneumoccocal Vaccine: 65+ (1 - PCV) 01/19/2024 (Originally 2014) Hepatitis C Screening 03/01/2024 (Originally 05/25/1968) Covid-19 Vaccine ( - 2022-24 season) 2023 Colorectal Cancer Screening 07/15/2025 Tetanus vaccine 06/29/2031 Zoster vaccine Completed Influenza (Flu) vaccine Completed Tdap adult Completed documented in this encounter Plan of Treatment Scheduled Orders Name Type Priority Associated Diagnoses Orde r Schedule Lipid Panel (Reflex Direct LDL) Lab Routine Hyperlipidemia, unspecified hyperlipidemia type Expected: 07/05/2023 (Approximate), Expires: 01/04/2024 Vitamin D, 25-Hydroxy Lab Routine Vitamin D deficiency Expected: 07/19/2023 (Approximate), Expires: 01/18/2024 documented as of this encounter Visit Diagnoses Diagnosis Annual physical exam Routine general medical examination at a health care facility Hyperlipidemia, unspecified hyperlipidemia type Vitamin D deficiency Unspecified vitamin D deficiency Lichen simplex chronicus Lichenification and lichen simplex chronicus documented in this encounter Care Teams Engine Lathe Set Up Operator Tool Relationship Specialty Start Date End Date Emery Ruiz MD [facility] [address] PCP - General Internal Medicine 12/01/21 documented as of this encounter
--- OUTSIDE RECORDS SUMMARY | 2023-10-22 00:06 | XMS_ITS | Encounter Summary ---
Author Organization [facility] [place] [address] Care Team Providers Care Scientific Research Associate Name Role Phone Emery Ruiz MD Primary Care Provider [phone] Encounter Details Date Type Department Care Team (Latest Contact Info) Description 01/07/2022 Travel Social History Tobacco Use Types Packs/Day [...] on filedocumented in this encounter Care Teams Scientific Research Associate Relationship Specialty Start Date End Date Emery Ruiz MD [facility] [place] [address] PCP - General Internal Medicine 12/01/21 documented as of this encounter
--- OUTSIDE RECORDS SUMMARY | 2023-10-22 00:06 | XMS_ITS | Encounter Summary ---
Author Organization [facility] [place] [address] Care Team Providers Care Pot Washer Name Role Phone Emery Ruiz MD Primary Care Provider [phone] Encounter Details Date Type Department Care Team (Late st Contact Info) Description 08/09/2023 Orders Only Internal Medicine at [address] [address] Monisha Trevizo RN Social History Tobacco Use Types Packs/Day Years Used Date Smoking Tobacco: Never Smokeless Tobacco: Never Alcohol Use Standard Drinks/Week Comments Yes 0 (1 standard drink = 0.6 oz pure alcohol) drinks a low alcohol content wine about twice per day [facility] Utilities Answer Date Recorded In the past 12 months has [employer], gas, oil, or water company threatened to shut off services in your [...] place to sleep or slept in a long term (including now)? No 01/11/2023 Education Answer Date Recorded What is the highest level of school you have completed or the highest degree you have received? Master's degree (e.g., MA, MS, Lupe, MEd, STORE CASHIER, MANNY) 01/11/2023 Sex and Gender Information Value Date Recorded Sex Assigned at Female 09/11/2020 9:02 AM EDT Gender Identity Female 09/11/2020 9:02 AM EDT Sexual Orientation Straight 02/14/2021 6: 45 PM EST documented as of this encounter Plan of Treatment Not on file documented as of this encounter Visit Diagnoses Not on filedocumented in this encounter Care Teams Pot Washer Relationship Specialty Start Date End Date Emery Ruiz MD [facility] [place] [address] PCP - General Internal Medicine 12/01/21 documented as of this encounter
--- OUTSIDE RECORDS SUMMARY | 2023-10-22 00:06 | XMS_ITS | Encounter Summary ---
Author Organization [facility] Address [facility] [place] [address] Care Team Providers Care Assessment Services Manager Name Role Phone Emery Ruiz MD Primary Care Provider [phone] Encounter Details Date Type Department Care Team (Late st Contact Info) Description 02/26/2021 Refill Dermatology at [facility] [address] [place] [address] Yosef Pacheco MD [facility] [address] [facility] [place] [address] Social History Tobacco Use Types Packs/Day Years [...] the money to buy more. Never true 10/03/20 21 Within the past 12 months, t [...] on filedocumented in this encounter Care Teams Assessment Services Manager Relationship Specialty Start Date End Date Emery Ruiz MD [facility] [place] [address] PCP - General Internal Medicine 12/01/21 documented as of this encounter
--- OUTSIDE RECORDS SUMMARY | 2023-10-22 00:06 | XMS_ITS | Encounter Summary ---
Author [facility] [place] [address] Care Team Providers Care Hosiery Pairer Name Role Phone Emery Ruiz MD Primary Care Provider Reason for Referral * Consultation (Urgent) - Duplicate Referral Specialty Diagnoses / Procedures Referred By Contkatie t Referred To Contact Dermatology Diagnoses Cellulitis of left upper extremity Emery Ruiz MD [facility] [address] [place] [address] [facility] Dermatology [address] [place] [address] Referral ID Status Reason Start Date Expiration Date Visits Requested Visits Authorized [id number] Duplicate Referral Consult, Test & Treat 01/05/2022 01/05/2023 10 10 Reason for Visit * Reason Onset Date Comments Referral 01/05/2022 Encounter Details Date Type Department Care Team (Late st Contact Info) Description 01/05/2022 Telephone Internal Medicine at [address] [address] Emery Ruiz MD [facility] [address] [facility] [place], [place] [id number] Referral Social History Tobacco Use Types Packs/Day Years [...] place to sleep or slept in a chcf (including now)? No 12/01/2020 Sex and Gender Information Value Date Recorded Sex Assigned at Female 09/11/2020 9:02 AM EDT Gender Identity Female 09/11/2020 9:02 AM EDT Sexual Orientation Straight 02/14/2021 6: 45 PM EST documented as of this encounter Miscellaneous Notes * Telephone Encounter - Alicia Pang RN - 01/05/2022 10:17 AM EST 682.3 ICD Cellulitis of L upper extremity Patient requesting stat referral be re-faxed to [facility] Derm. New referral order pended and forwarded to OG Aldana for review. * Telephone Encounter - Kenton Khan - 01/05/2022 8:42 AM EST Message: Patient called stating she has a referral to [facility] Dermatology, see referral and OV 01/02/22. She states she needs it refaxed as an urgent matter not routine. Dermatology told her they are booking into April for routine visits and she can get an appt in 2 weeks for urgent visit. Yosef Malone told her to be seen by Dermatology within 2 weeks. Please call patient, can leave a message, when revised referral is faxed to [phone]. Ask caller their first and last name and relationship to the patient: Sheila [facility] Best time to call back: any Ok to leave a message: y Ok to send - message: y Offered Appointment: n MA/Nurse/Distance Education Faculty Liaison contacted via: Message: y Call: n Pager: n documented in this encounter Plan of Treatment Scheduled Referrals Name Type Priority Associated Diagnoses Order Schedule Referral to Dermatology Outpatient Referral Urgent Cellulitis of left upper extremity Ordered: 01/05/2022 documented as of this encounter Visit Diagnoses Diagnosis Cellulitis of left upper extremity Cellulitis and abscess of upper arm and forearm documented in this encounter Care Teams Hosiery Pairer Relationship Specialty Start Date End Date Emery Ruiz MD [facility] [place] [address] PCP - General Internal Medicine 12/01/21 documented as of this encounter
--- OUTSIDE RECORDS SUMMARY | 2023-10-22 00:06 | XMS_ITS | Encounter Summary ---
Author Organization Formerly [facility] Address [facility] [place] [address] Care Team Providers Care Patternmaker Metal Bench Name Role Phone Tim Quinones MD Primary Care Provider [phone] Reason for Visit * Reason Comments Follow-up Encounter Details Date Type Department Care Team (Late st Contact Info) Description 10/21/2020 9:00 AM EDT Office Visit Dermatology at [facility] [address] [place] [address] Yosef Pacheco MD [facility] [place] [address] Lichen simplex chronicus Social History Tobacco Use Types Packs/Day Years Used Date Smoking Tobacco: Never Assessed Sex and Gender Information Value Date Recorded Sex Assigned at Female 09/11/2020 9:02 AM EDT Gender Identity Female 09/11/2020 9:02 AM EDT Sexual Orientation Straight 02/14/2021 6: 45 PM EST documented as of this encounter Progress Notes * Yosef Pacheco MD - 10/21/2020 9:00 AM EDT Images from the original note were not included. DEPARTMENT OF DERMATOLOGY Medical Dermatology Clinic Provider: Yosef Pacheco MD Patient's preferred name Sheila Preferred contact method for results []myDH []Letter [x]Phone: cell Detailed phone message OK? yes Are there any other people with whom we may discuss your care? Husbamd PAST MEDICAL HISTORY If no, type N. If yes, type date, location, treatment Melanoma N Dysplastic nevi N SCC N BCC N AKs N UV Exposure & Protection Sun Protection: yes Other relevant past medical history (i.e. 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 If yes, include details below Allergy to lidocaine, epinephrine, Dermabond, chlorhexidine, or adhesives: N Bleeding disorder or blood thinners: N Implanted devices (Pacemaker, defibrillator, deep brain stimulator, cochlear implant): n History of Present Illness: Sheila Salazar is a 70 y.o. year old. Patient returns to clinic today for evaluation of dermatitis that was diagnosed on and treated with Desoximetasone 0.25%. Reports good response to treatment. Concern: Spots of concer Location: Left forearm and left shoulder Present for: one month old Symptoms: itch with scab after itching Previous treatment: Desoximetasone when they flared Last visit at [facility] Derm: 09/20/2020 Last visit with this provider: 09/20/2020 Medications: Reviewed in eD-H Allergies: Reviewed in eD-H Skin Examination: Focused skin examination of the neck and arm was normal with the exception of the findings below Assessment/Plan Lichen Simplex Chronicus - On the left posterior neck and left forearm there are ill defined light thin plaques with overlying erosions and heme crust. -Advised she can use the Desoximetasone 0.25% Ointment. Apply twice a day to the affected areas forup to three weeks. Take 1 week off before repeating. -Discussed LN2 and ILK, pt declined today. -Continue moisturizers to skin on off weeks from topical steroids, she is using clinique and has a good response to this. -Can safely use medication anywhere but on the face, armpits and groin area. RTC: One year [x]Note routed to service secretary []Recall has been placed in scheduling system []Appointment scheduled at checkout Scribe attestation: Selene Youngblood LPN has performed the documentation for this encounter in the presence of and acting as a scribe for Yosef Pacheco MD I performed the above scribed service and agree with the accuracy of the documentation in this encounter. Reviewed and signed by: Yosef Pacheco MD Dermatology [facility] Patient seen and evaluated with staff supervisor diagnostic: Carole Young MD Dermatology [facility] * Renato Young MD - 10/21/2020 9:00 AM EDT I directly supervised Dr. Pacheco during this office visit. Dr. Pacheco presented the history and physical exam to me. I then saw and examined this patient with Dr. Pacheco . We reviewed the history and pertinent details and I confirmed the physical findings. I agree with the details of the history and physical exam as documented in Dr. Pacheco's note. RENATO YOUNG MD Staff Physician documented in this encounter Plan of Treatment Not on file documented as of this encounter Visit Diagnoses Diagnosis Lichen simplex chronicus Lichenification and lichen simplex chronicus documented in this encounter Care Teams Patternmaker Metal Bench Relationship Specialty Start Date End Date Tim Quinones MD [facility] [place] [address] PCP - General Internal Medicine 10/14/20 11/30/21 documented as of this encounter
--- OUTSIDE RECORDS SUMMARY | 2023-10-22 00:06 | XMS_ITS | Encounter Summary ---
Author Organization [facility] Address [facility] [place] [address] Care Team Providers Care Intervention Analyst Name Role Phone Mulu Alfaro MD Primary Care Provider Encounter Details Date Type Department Care Team (Late st Contact Info) Description 09/20/2020 3:40 PM EDT Office Visit Dermatology at [facility] [address] [place] [address] Yosef Pacheco MD [facility] [place] [address] Dermatitis; Lichen simplex chronicus Social History Tobacco Use Types Packs/Day Years Used Date Smoking Tobacco: Never Assessed Sex and Gender Information Value Date Recorded Sex Assigned at Female 09/11/2020 9:02 AM EDT Gender Identity Female 09/11/2020 9:02 AM EDT Sexual Orientation Straight 02/14/2021 6: 45 PM EST documented as of this encounter Progress Notes * Yosef Pacheco MD - 09/20/2020 3:40 PM EDT Images from the original note were not included. DEPARTMENT OF DERMATOLOGY Medical Dermatology Clinic Provider: Yosef Pacheco MD Patient's preferred name Sheila Preferred contact method for results []myDH []Letter []Phone: Detailed phone message OK? Are there any other people with whom we may discuss your care? History of Present Illness: Sheila Ortiz is a 70 y.o. year old. Patient is new and self-referred to the clinic for the following: - Patient reports of a rash on neck that has been on and off for the past six months. She describesthe rash to be very itching and causes a burning sensation. - Patient finds applying Aveeno and Hydrocortisone to be helpful with the sensation. Medications: Reviewed in eD-H Allergies: Reviewed in eD-H Skin Examination: Neck-up skin examination of the scalp, hair, face, ears, and neck was normal with the exception of the findings below Assessment/Plan Lichen Simplex Chronicus - On the left neck and anterior neck there are ill defined light thin plaques with overlying erosions and scale. - Joint decision to collect a skin culture to check for staph ( needs mupirocin). - Start Rx: Desoximetasone 0.25% Ointment. Apply twice a day to the affected areas for three weeks. - Recommend washing with Dove Bar soap only, gently, no wash cloth. Other items to document in the assessment/plan if relevant ??? N/A RTC: Follow up in 1 month for Lichen Simplex Chronicus [] FSE [] Follow up []Note routed to front office secretary []Recall has been placed in scheduling system [x]Appointment scheduled at checkout Scribe attestation: Linnette Light [facility] who has performed the documentation for this encounter inthe presence of and acting as a scribe for Yosef Pacheco MD. I performed the above scribed service and agree with the accuracy of the documentation in this encounter. Reviewed and signed by: Yosef Pacheco MD Dermatology [facility] Patient seen and evaluated with staff plastic production machine setter: Angelito Shearer MD Dermatology [facility] * Angelito Shearer III, MD - 09/20/2020 3:40 PM EDT I directly supervised Dr. Pacheco during this office visit. Dr. Pacheco presented the history and physical exam to me. I then saw and examined this patient with Dr. Pacheco . We reviewed the history and pertinent details and I confirmed the physical findings. I agree with the details of the history and physical exam as documented in Dr. Pacheco's note. ANGELITO SHEARER III, MD Staff Physician documented in this encounter Plan of Treatment Not on file documented as of this encounter Procedures Procedure Name Priority Date/Time Associated Diagnosis Comments HC GRAM STAIN FOR BACTERIA Routine 09/20/2020 4:44 PM EDT Dermatitis documented in this encounter Results * Skin/Superficial Wound Culture Neck (09/20/2020 4:44 PM EDT) Skin/Superfic ial Wound Culture Rare mixed bacterial morphotypes suggestive of normal cutaneous jennifer [facility] Gram Stain No Neutrophils seen. No microorganisms seen. [facility] Superficial Wound NECK STRUCTURE / Unknown 09/20/2020 4:44 PM EDT 09/20/2020 6:12 PM EDT Narrative Resulting Agency Comment Spec In Lab Angelito Shearer III, MD MICROBIOLOGY - GENERAL ORDERABLES [facility] [place] [address] documented in this encounter Visit Diagnoses Diagnosis Dermatitis Contact dermatitis and other eczema, due to unspecified cause Lichen simplex chronicus Lichenification and lichen simplex chronicus documented in this encounter Care Teams Intervention Analyst Relationship Specialty Start Date End Date Mulu Alfaro MD [address] [place] [phone] PCP - General General Internal Medicine 09/20/20 8/07/19 documented as of this encounter
--- OUTSIDE RECORDS SUMMARY | 2023-10-22 00:06 | XMS_ITS | Encounter Summary ---
Author Organization [facility] Address [facility] [place] [address] Care Team Providers Care Front Edger Name Role Phone Emery Ruiz MD Primary Care Provider [phone] Encounter Details Date Type Department Care Team (Late st Contact Info) Description 06/15/2022 Telephone Internal Medicine at [address] [id number] Emery Ruiz MD [facility] GENER[facility] [place] [address] Social History Tobacco Use Types Packs/Day Years [...] place to sleep or slept in a snf (including now)? No 12/01/2020 Sex and Gender Information Value Date Recorded Sex Assigned at Female 09/11/2020 9:02 AM EDT Gender Identity Female 09/11/2020 9:02 AM EDT Sexual Orientation Straight 02/14/2021 6: 45 PM EST documented as of this encounter Miscellaneous Notes * Telephone Encounter - Justine Winkler - 06/22/2022 1:27 PM EDT Sheila states her insurance company is very clear that if Dr. Ruiz is not credentialed, she will need to pay around $700 for her visit. Sheila states she has waited very patiently for the past year and she would like an appointment within the next 6 weeks with a credentialed provider in [place] and would be happy to switch back to Dr. Ruiz once his credentialing is complete. Patient needs mammogram and colonoscopy referrals soon hence the 6 week appointment request. Patient states she has private insurance so she needs blood work as she has not had lab work in 2 years. Patient requests a call back today by 3 PM as she is very frustrated at this point. Please call patient back at [phone] (home) for today. Patient states she will call again at 3 PM if she does not hear back. * Telephone Encounter - Selene Nunez - 06/19/2022 3:47 PM EDT Sheila has called in to check on the status of the doctors credentialing. She states she has checkedwith the insurance again and Dr. Ruiz is still not showing up in their system as being an in-network provider. Please call to advise with any updates as patient is very anxious to schedule. * Telephone Encounter - Haley Washington - 06/15/2022 4:14 PM EDT Ronda, Can you look into this issue with Dr Ruiz's, insurance is saying he is out of network and they will not cover. * Telephone Encounter - Emilio Rodrigues - 06/15/2022 2:17 PM EDT Message: Patient calling because she was put with Emery Ruiz MD as her pcp. However, when she spoke with her insurance they said that he is not in network and they won't cover appts with him. She would like to speak with someone to see if she can be switched with another provider. Please call to discuss. Ask caller their first and last name and relationship to the patient: Self Best time to call back: Any, please contact at home number only cell not available rn Ok to leave a message: Yes Ok to send my- message: No Offered Appointment: MA/Nurse/Manager Of Training contacted via: Message: Yes Call: Pager: documented in this encounter Plan of Treatment Not on file documented as of this encounter Visit Diagnoses Not on filedocumented in this encounter Care Teams Front Edger Relationship Specialty Start Date End Date Emery Ruiz MD [facility] [place] [place] [address] PCP - General Internal Medicine 12/01/21 documented as of this encounter
--- OUTSIDE RECORDS SUMMARY | 2023-10-22 00:06 | XMS_ITS | Encounter Summary ---
Author Organization [facility] [place] [address] Care Team Providers Care Bisque Placer Name Role Phone Tim Quinones MD Primary Care Provider [phone] Encounter Details Date Type Department Care Team (Late st Contact Info) Description 04/21/2021 2:30 PM [facility] Public [place] [id number] Diarrhea, unspecified type Social History Tobacco Use Types Packs/Day Years [...] place to sleep or slept in a group home (including now)? No 12/01/2020 Sex and Gender Information Value Date Recorded Sex Assigned at Female 09/11/2020 9:02 AM EDT Gender Identity Female 09/11/2020 9:02 AM EDT Sexual Orientation Straight 02/14/2021 6: 45 PM EST documented as of this encounter Plan of Treatment Not on file documented as of this encounter Procedures Procedure Name Priority Date/Time Associated Diagnosis Comments COVID-19 PCR Routine 04/21/2021 5:31 PM EST Diarrhea, unspecified type documented in this encounter Results * COVID-19 PCR (04/21/2021 5:31 PM EST) SARS-CoV-2 RNA Not Detected Not Detected [facility] Comment: This result should be interpreted in combination with the clinical observations, patient history and epidemiological information in making a final diagnosis. For testing of asymptomatic individuals, assay performance characteristics and clinical utility have not been evaluated. Testing for SARS-CoV-2 (Severe acute respiratory syndrome coronavirus 2, formerly known as 2019 novel coronavirus or 2019-nCoV) to aid in the diagnosis of COVID-19 is performed using the [facility] SARS-CoV-2 Assay as authorized by the FDA Emergency Use Authorization (EUA). This EUA assay is intended for In-vitro Diagnostic (IVD) use with respiratory specimens such as nasopharyngeal swabs collected from individuals during the acute phase of infection. This assay is performed based on the instructions for use provided by [employer] and additional guidance provided by CDC and FDA. Testing is performed in the [facility] within the Department of Pathology and Laboratory Medicine at [facility], certified under the Clinical Laboratory Improvement Amendments of 1988 (CLIA), 42 U.S.C. 263a, to perform high complexity tests. Assay performance has been verified according to clinical laboratory regulatory requirements for use with specimens collected from individuals suspected of COVID-19. Test results are provided above. A result of Not Detected indicates that the viral RNA target is not present above the limit of detection, but does not preclude SARS-CoV-2 infection. False negative results may occur if a specimen is improperly collected, transported or handled; if amplification inhibitors are present; or if inadequate numbers of viral particles are present in the specimen. When a diagnostic test is negative, the possibility of a false negative result should be considered in the context of a patient's recent exposures and the presence of clinical signs and symptoms consistent with COVID-19. A result of Detected indicates that RNA from SARS-CoV-2 was detected and the patient is infected. As required or requested by public health authorities, positive specimens may be sent for additional testing. Positive and negative predictive values for this test are highly dependent on disease prevalence. A result of Invalid indicates that neither the viral RNA targets nor the internal control target was detected. An invalid result suggests the presence of inhibitors. Recollection and re-testing is recommended in the case of an invalid result. CDC COVID-19 criteria for testing on human specimens and clinical management guidance information are available at the CDC Coronavirus Disease 2019 (COVID-19) webpage under Information for Healthcare Professionals (https://www.cdc.gov/coronavirus/2019-ncov/hcp/index.html) Additional information about this and other EUA tests can be found in provider and patient fact sheets at the following FDA website: https://www.fda.gov/medical-devices/gqwikqxdxjo-qqvkvrk-8767-zurhq-82-movesimsn- use-a dsfhdkythifzg-phhplzr-fgxvfdt/lyqqw-ytawynldnbe-byhm SARS-CoV-2 RNA Source [employer] Swab [facility] Nasopharyngeal Swab 04/21/19 5:31 PM EST 04/21/2021 5:31 PM EST Comment:Symptoms->Fever / Re spiratory Symptoms Narrative Resulting Agency Comment Spec In Lab Juliana Stewart MERCURY CRACKING TESTER MOLECULAR ORDERABLES [facility] [place] [address] documented in this encounter Visit Diagnoses Diagnosis Diarrhea, unspecified type documented in this encounter Care Teams Bisque Placer Relationship Specialty Start Date End Date Tim Quinones MD [facility] [place] [place] [address] PCP - General Internal Medicine 10/14/20 11/30/21 documented as of this encounter
--- OUTSIDE RECORDS SUMMARY | 2023-10-22 00:06 | XMS_ITS | Encounter Summary ---
Author Organization [facility] Address [facility] [place] [address] Care Team Providers Care Wind Plant Manager Name Role Phone Tim Quinones MD Primary Care Provider Reason for Visit * Reason Comments Establish Care Encounter Details Date Type Department Care Team (Late st Contact Info) Description 12/13/2020 9:40 AM EDT Office Visit Internal Medicine at [address] [address] Tim Quinones MD [facility] [place] [address] Breast cancer screening by mammogram; Menopausal state; Post-menopause Social History Tobacco Use Types Packs/Day Years [...] in a nursing home (including now)? No 12/01/2020 Sex and Gender Information Value Date Recorded Sex Assigned at Female 09/11/2020 9:02 AM EDT Gender Identity Female 09/11/2020 9:02 AM EDT Sexual Orientation Straight 02/14/2021 6: 45 PM EST documented as of this encounter Last Filed Vital Signs Vital Sign Reading Time Taken Comments Blood Pressure 118/73 12/13/2020 9:40 AM EDT Pulse 63 12/13/2020 9:40 AM EDT Temperature - - Respiratory Rate 14 12/13/2020 9:40 AM EDT Oxygen Saturation 100% 12/13/2020 9:40 AM EDT Inhaled Oxygen Concentration - - Weight 60.3 kg (133 lb) 12/13/2020 9:40 AM EDT Height 150.3 cm (4' 11.17) 12/13/2020 9:40 AM E DT Body Mass Index 26.71 12/13/2020 9:40 AM EDT documented in this encounter Progress Notes * Tim Quinones MD - 12/13/2020 9:40 AM EDT General Internal Medicine Visit Sheila Jose Salazar is a 70 y.o. female who presents to establish care and discuss chronic medicalissues. She had been receiving PCP care in [place] but her previous provider left. She follows with dermatology for lichen simplex. Other medical history includes hyperlipidemia (with high HDL), Eczema, and vitamin D deficiency. She feels well today. She has been working on losing weight, training for another marathon. Allergies, medical history, surgical history, family history, and social history have all been updated in the chart. 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 Her most recent job was eliminated, but she has a new job set up. She runs marathons, most recently in 2018. She is training for another one. Currently using weight watchers. Lives with her at home. Her two grown children do not live nearby. No flowsheet data found. No flowsheet data found. No flowsheet data found. IRIS-7 Patient Reported Responses 12/01/2020 Nervous, anxious (Patient) Not at all Unable to stop worrying (Patient) Not at all PHQ-9 QUESTIONNAIRE (AMB) 12/01/2020 Little interest or pleasure (Patient) Not at all Down, depressed, hopeless (Patient) Not at all Review of Systems REVIEW OF SYSTEMS 12/10/2020 Constitutional Weight loss Ear / nose / throat / mouth None of the above Eyes None of the above Respiratory None of the above Cardiovascular None of the above Gastrointestinal None of the above Skin, hair Rash, Dry skin, Itching Musculoskeletal None of the above Neurological None of the above Hematologic / Lymphatic None of the above Genitourinary None of the above Other Symptoms 22.2 lb wieght loss since 05/11/20 after joining [employer]! :), , am already following up with a [facility] char filter operator helper for the rash, itchy/dry skin. Objective: Visit Vitals BP 118/73 (BP Location (NBP): Left arm, Patient Position: Sitting, BP Cuff Sizes: Adult (25-34 cm)) Pulse 63 Resp 14 Ht 150.3 cm (4' 11.17) Wt 60.3 kg (133 lb) SpO2 100% BMI 26.71 kg/m?? BP Readings from Last 3 Encounters: 12/13/20 118/73 Wt Readings from Last 3 Encounters: 12/13/20 60.3 kg (133 lb) Physical Exam Constitutional: General: She is not in acute distress. Appearance: She is not ill-appearing. HENT: Head: Normocephalic and atraumatic. Mouth/Throat: Mouth: Mucous membranes are moist. Pharynx: No oropharyngeal exudate or posterior oropharyngeal erythema. Eyes: General: No scleral icterus. Extraocular Movements: Extraocular movements intact. Pupils: Pupils are equal, round, and reactive to light. Neck: Vascular: No carotid bruit. Cardiovascular: Rate and Rhythm: Normal rate and regular rhythm. Heart sounds: No murmur heard. No friction rub. No gallop. Pulmonary: Effort: No respiratory distress. Breath sounds: No wheezing, rhonchi or rales. Abdominal: General: Bowel sounds are normal. There is no distension. Palpations: Abdomen is soft. Tenderness: There is no abdominal tenderness. There is no guarding. Musculoskeletal: Cervical back: Normal range of motion and neck supple. Right lower leg: No edema. Left lower leg: No edema. Comments: Moving all extremities spontaneously Lymphadenopathy: Cervical: No cervical adenopathy. Skin: Findings: No rash ( no visible rashes ). Neurological: Mental Status: She is alert. Cranial Nerves: No cranial nerve deficit. Motor: No weakness. Gait: Gait normal. Comments: Able to follow simple commands. No dysarthria. Psychiatric: Behavior: Behavior normal. Thought Content: Thought content normal. Comments: Good attention Assessment and Plan: Ms. Salazar was seen today for: Problem List Items Addressed This Visit None Visit Diagnoses Breast cancer screening by mammogram Relevant Orders Mammo Screening Cad and Narinder Bilateral Menopausal state Relevant Orders DXA Central Spine, Hip, and/or Whole Body (Generic) Post-menopause Relevant Orders DXA Central Spine, Hip, and/or Whole Body (Generic) Wants to get COVID vaccine, then pneumonia, then tetanus. She will acquire these at her local pharmacy. Due for DEXA and mammogram. Otherwise up to date on health maintenance tasks. I reviewed some of her recent labs ordered by her other provider; she does not require new labs today nor does she require a statin for hyperlipidemia. These labs will be scanned into her chart. A mask and face shield were worn by myself for the entirety of the visit. documented in this encounter Plan of Treatment Not on file documented as of this encounter Visit Diagnoses Diagnosis Breast cancer screening by mammogram Menopausal state Symptomatic menopausal or female climacteric states Post-menopause Asymptomatic postmenopausal status (age-related) (natural) documented in this encounter Care Teams Wind Plant Manager Relationship Specialty Start Date End Date Tim Quinones MD [facility] [place] [address] PCP - General Internal Medicine 10/14/20 11/30/21 documented as of this encounter
--- OUTSIDE RECORDS SUMMARY | 2023-10-22 00:06 | XMS_ITS | Encounter Summary ---
Author Organization [facility] Address [facility] [place] [address] Care Team Providers Care Escalator Constructor Name Role Phone Emery Ruiz MD Primary Care Provider [phone] Encounter Details Date Type Department Care Team (Late st Contact Info) Description 01/05/2022 Telephone Dermatology at [facility] [address] [place] [phone] Gaston Salgado MD [facility] [address] [place] [address] Social History Tobacco Use Types Packs/Day Years [...] encounter Miscellaneous Notes * Telephone Encounter - Deborah Mcclelland - 01/05/2022 3:54 PM EST Received an urgent referral for Sheila Salazar and was not able to reach you to schedule can you please call the patient at [phone] to reschedule. Thank you documented in this encounter Plan of Treatment Not on file documented as of this encounter Visit Diagnoses Not on filedocumented in this encounter Care Teams Escalator Constructor Relationship Specialty Start Date End Date Emery Ruiz MD [facility] [place] [address] PCP - General Internal Medicine 12/01/21 documented as of this encounter
--- OUTSIDE RECORDS SUMMARY | 2023-10-22 00:06 | XMS_ITS | Encounter Summary ---
Author Organization [facility] Address [facility] [place] [address] Care Team Providers Care Masonry Contractor Administrator Name Role Phone Tim Quinones MD Primary Care Provider [phone] Reason for Visit * Reason Comments Cyst Bump... Left ear.... 06/13/2021.. Encounter Details Date Type Department Care Team (Late st Contact Info) Description 06/18/2021 10:00 AM EDT Office Visit Internal Medicine at [address] [id number] Yosef Malone PA [facility] [address] INTERNAL [place] [address] Acute swimmer's ear of left side Social History Tobacco Use Types Packs/Day Years [...] place to sleep or slept in a mcc (including now)? No 12/01/2020 Sex and Gender Information Value Date Recorded Sex Assigned at Female 09/11/2020 9:02 AM EDT Gender Identity Female 09/11/2020 9:02 AM EDT Sexual Orientation Straight 02/14/2021 6: 45 PM EST documented as of this encounter Last Filed Vital Signs Vital Sign Reading Time Taken Comments Blood Pressure 129/76 06/18/2021 9:56 AM EDT Pulse 66 06/18/2021 9:56 AM EDT Temperature - - Respiratory Rate 16 06/18/2021 9:56 AM EDT Oxygen Saturation - - Inhaled Oxygen Concentration - - Weight 58.2 kg (128 lb 5 oz) 06/18/2021 9:56 AM EDT Height 150.3 cm (4' 11.17) 06/18/2021 9:56 AM E DT Body Mass Index 25.76 06/18/2021 9:56 AM EDT documented in this encounter Patient Instructions * Attachments The following attachments cannot be sent through Care Everywhere. * Otitis Externa (Vietnamese) documented in this encounter Progress Notes * Yosef Malone PA - 06/18/2021 10:00 AM EDT General Internal Medicine Visit Subjective: Patient Information: Sheila Salazar is a 71 y.o. female, a patient of Tim Quinones MD, whopresents today for: Chief Complaint Patient presents with ??? Cyst Bump... Left ear.... 06/13/2021.. Pt reports she noticed left ear itching, mostly EAC last week. She scratched it and saw a small amount of blood about 5 days ago. Continued to cause itching and then noticed pinna swelling and redness, as well as radiating pain to tragus and preauricular area. Using a local heating pad seemed to improve the pain, redness, and swelling but dull ache continuestoday. Denies drainage, fever, cough, ST, recent swimming or use of ear plugs/headsets. Medications 12/13/20 1503 Medication Sig Taking? desoximetasone (TOPICORT) 0.25 % Ointment Apply to the neck rash twice a day for 3 weeks. cholecalciferol, Vitamin D3, (Vitamin D3) 1,000 unit Tablet Take by mouth daily. UNABLE TO FIND EZ Tears ascorbic acid, vitamin C, (VITAMIN C) 500 mg Tablet, Chewable Take by mouth. benzonatate (TESSALON) 200 mg Capsule Every 8 hours. triamcinolone (KENALOG) 0.1 % Cream triamcinolone acetonide 0.1 % topical cream APPLY A THIN LAYER TO THE AFFECTED AREA(S) BY TOPICAL ROUTE 2 TIMES PER DAY ibuprofen (Advil) 600 mg Tablet Take by mouth. acetaminophen (Tylenol) 500 mg Tablet Take by mouth. Objective: Visit Vitals BP 129/76 (BP Location (NBP): Left arm, Patient Position: Sitting, BP Cuff Sizes: Large Adult (32-43 cm)) Pulse 66 Resp 16 Ht 150.3 cm (4' 11.17) Wt 58.2 kg (128 lb 5 oz) BMI 25.76 kg/m?? BP Readings from Last 3 Encounters: 06/18/21 129/76 12/13/20 118/73 Wt Readings from Last 3 Encounters: 06/18/21 58.2 kg (128 lb 5 oz) 12/13/20 60.3 kg (133 lb) Physical Exam Constitutional: General: She is not in acute distress. Appearance: She is well-developed. HENT: Head: Normocephalic and atraumatic. Right Ear: Tympanic membrane and external ear normal. Left Ear: Tympanic membrane normal. No decreased hearing noted. Swelling (erythematous EAC with minimal swelling, no maceration and d/c) and tenderness (EAC with pinna manipulation) present. No laceration or drainage. There is no impacted cerumen. No foreign body. Nose: Nose normal. Eyes: Conjunctiva/sclera: Conjunctivae normal. Cardiovascular: Rate and Rhythm: Normal rate and regular rhythm. Pulmonary: Effort: Pulmonary effort is normal. Breath sounds: Normal breath sounds. Lymphadenopathy: Cervical: No cervical adenopathy. Skin: General: Skin is warm. Neurological: Mental Status: She is alert and oriented to person, place, and time. Psychiatric: Behavior: Behavior normal. Thought Content: Thought content normal. Judgment: Judgment normal. Assessment and Plan: I discussed the following diagnosis/diagnoses and differential diagnoses in detail with Ms. Salazar, including treatment options and she agrees with the plan outlined below. All chronic problemslisted in H&P are stable unless otherwise noted below. 1. Acute swimmer's ear of left side - ofloxacin (Floxin) 0.3 % Drops; Place 5 drops into the left ear daily. Dispense: 5 mL; Refill: 0 - Ms. Salazar was given the necessary information on her condition and instructed to return toclinic if symptoms continue or worsen and to follow-up with Tim Quinones MD for chronic management as needed. - An After Visit Summary was either printed and given to the patient or provided via the patient portal at the patient's request. No future appointments. documented in this encounter Plan of Treatment Not on file documented as of this encounter Visit Diagnoses Diagnosis Acute swimmer's ear of left side documented in this encounter Care Teams Masonry Contractor Administrator Relationship Specialty Start Date End Date Tim Quinones MD [facility] [place] [address] PCP - General Internal Medicine 10/14/20 11/30/21 documented as of this encounter
--- OUTSIDE RECORDS SUMMARY | 2023-10-22 00:06 | XMS_ITS | Encounter Summary ---
Author Organization [facility] Address [facility] [place] [address] Care Team Providers Care Sheriff'S Sergeant Name Role Phone Emery Ruiz MD Primary Care Provider [phone] Encounter Details Date Type Department Care Team (Late st Contact Info) Description 12/29/2021 Telephone Internal Medicine at [address] [phone] Emery Ruiz MD [facility] [place] [address] Social History Tobacco Use Types Packs/Day Years [...] Miscellaneous Notes * Telephone Encounter - Deborah Naylor - 12/29/2021 3:30 PM EDT Message: Patient called in to state that her PCP as well as the residents in the office are not covered by her insurance. She is looking for a office visit to address an issue on her wrist where a blister that had been popped by and physician, now has a red area that is tender to the touch. She was advised to get it looked at by dermatology, but they have no openings. This agent did discuss our scheduling process and she is not comfortable scheduling with her pcp or the residents not listed on her insurance as she has incurred a large bill from a similar issue. Please call to assist. Ask caller their first and last name and relationship to the patient: patient Best time to call back: any Ok to leave a message: y Ok to send my- message: y Offered Appointment: not able to schedule with a provider from the scheduling tree that should was ok with due to insurance issue. MA/Nurse/[place] contacted via: Message: y Call: n Pager: n documented in this encounter Plan of Treatment Not on file documented as of this encounter Visit Diagnoses Not on filedocumented in this encounter Care Teams Sheriff'S Sergeant Relationship Specialty Start Date End Date Emery Ruiz MD [facility] [place] [address] PCP - General Internal Medicine 12/01/21 documented as of this encounter
--- OUTSIDE RECORDS SUMMARY | 2023-10-22 00:06 | XMS_ITS | Encounter Summary ---
Author Organization [facility] [place] [address] Care Team Providers Care Railway Equipment Operator Name Role Phone Emery Ruiz MD Primary Care Provider Reason for Visit * Consultation (Urgent) - Closed Specialty Diagnoses / Procedures Referred By Iona munoz Referred To Contact Dermatology Diagnoses Cellulitis of left upper extremity Yosef Malone PA [facility] [place] [address] [facility] [address] [place] [address] Referral ID Status Reason Start Date Expiration Date V isits Requested Visits Authorized [id number] Closed Consult, Test & Treat 01/02/2022 01/02/2023 1 1 Encounter Details Date Type Department Care Team (Late st Contact Info) Description 01/07/2022 1:20 PM EST Office Visit Dermatology at [facility] [address] [place] [address] [facility] [address] [place] [address] Arthropod bite, initial encounter Social History Tobacco Use Types Packs/Day Years [...] place to sleep or slept in a care home (including now)? No 12/01/2020 Sex and Gender Information Value Date Recorded Sex Assigned at Female 09/11/2020 9:02 AM EDT Gender Identity Female 09/11/2020 9:02 AM EDT Sexual Orientation Straight 02/14/2021 6: 45 PM EST documented as of this encounter Patient Instructions * Patient Instructions* Gaston Salgado MD - 01/07/2022 1:20 PM EST Jake Sosa, It was nice to meet you today. As we discussed, I suspect an insect bite as the culprit for your lesion, but I cannot say for certain. Please let me know if this area does not heal in the next few weeks and I can recheck the area and consider other possibilities in the differential Also I am happy to take over your care from Dr. Pacheco. You can give my secretary of police a call to schedule something if you'd like a skin cancer screening or need any management of your itching Take care Gaston Salgado MD documented in this encounter Progress Notes * Gaston Salgado MD - 01/07/2022 1:20 PM EST Images from the original note were not included. DEPARTMENT OF DERMATOLOGY Medical Dermatology Clinic Provider: Gaston Salgado MD Patient's preferred name Sheila Preferred contact method for results []?myDH []?Letter [x]?Phone: cell Detailed phone message OK? yes Are there any other people with whom we may discuss your care? Husbamd ?? PAST MEDICAL HISTORY If no, type N. If yes, type date, location, treatment Melanoma N Dysplastic nevi N SCC N BCC N AKs N UV Exposure & Protection Sun Protection: yes Other relevant past medical history (i.e. 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 PRE-PROCEDURE SCREENING If no, type N. If yes, include details below Allergy to lidocaine, epinephrine, Dermabond, chlorhexidine, or adhesives: N Bleeding disorder or blood thinners: N Implanted devices (Pacemaker, defibrillator, deep brain stimulator, cochlear implant): n History of Present Illness: Sheila OrtizRachJuan is a 71 y.o. Patient returns to clinic today for lesion on left wrist - December 18, a blister on left wrist appeared. Went to an urgent care center who removed the topof it and pt was told it should resolve in a week but persisted - She visited her PCP afterwards to have referred to dermatology. PCP gave her Mupirocin Ointment to apply twice a day and then covering. Started application last Wednesday. - The area is mildly painful, and can be tender to the touch. The redness around the lesion has decreased compared to when first noticeable. - Pt reports of a tingling sensation going up to the forearm up to the elbow since first noticing the lesion. - Pt can not recall of any tick or bug bites - Flu shot two weeks ago. - She denies of feeling sick otherwise. - Pt has received both shingle shots. Last visit at Dermatology: 10/21/2020 Medications: Reviewed in eD-H Allergies: Reviewed in eD-H Skin Examination: Focused skin examination of the left wrist was normal with the exception of the findings below. Assessment/Plan #. Favor Arthropod Assault vs. Shingles - 1cm pink papule with central erosion and superficial crust. (figure 1). 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 - Encouraged pt to RTC if area worsens or fails to improve. Figure 1 Photo(s) taken and charted with patient's verbal consent. Other: ??? N/A RTC: Return as needed if area fails to resolve []Note routed to secretary of police []Recall placed in scheduling system []Appointment scheduled at checkout Scribe attestation: Linnette Light [facility] has performed the documentation for this encounter in thepresence of and acting as a scribe for Gaston Salgado MD. I performed the above scribed service and agree with the accuracy of the documentation in this encounter. Reviewed and signed by: Gaston Salgado MD Dermatology [facility] Patient seen and evaluated with staff credit collection specialist: Deya Wilkerson MD Dermatology [facility] * Deya Wilkerson MD - 01/07/2022 1:20 PM EST I directly supervised Dr. Salgado during this office visit. Dr. Salgado presented the history and physical exam to me. I, then, saw and examined this patient with Dr. Salgado. We reviewed the history and pertinent details and I confirmed the physical findings. I agree with the details of the history and physical exam as documented in Dr. Brandt's note. DEYA WILKERSON MD Staff Physician documented in this encounter Plan of Treatment Scheduled Referrals Name Type Priority Associated Diagnoses Order Schedule Referral to Dermatology Outpatient Referral Routine Cellulitis of left upper extremity Ordered: 01/02/2022 documented as of this encounter Visit Diagnoses Diagnosis Arthropod bite, initial encounter documented in this encounter Care Teams Railway Equipment Operator Relationship Specialty Start Date End Date Emery Ruiz MD [facility] [place] [address] PCP - General Internal Medicine 12/01/21 documented as of this encounter
--- OUTSIDE RECORDS SUMMARY | 2023-10-22 00:06 | XMS_ITS | Encounter Summary ---
Author Organization [facility] Address [facility] [place] [address] Care Team Providers Care Chain Saw Operator Name Role Phone Tim Quinones MD Primary Care Provider [phone] Reason for Visit * Reason Comments Medication Refill Encounter Details Date Type Department Care Team (Late st Contact Info) Description 02/25/2021 Refill Dermatology at [facility] [address] [place] [address] Yosef Pacheco MD [facility] [address] [place] [address] Lichen simplex chronicus Social History Tobacco Use [...] chronicus documented in this encounter Care Teams Chain Saw Operator Relationship Specialty Start Date End Date Tim Quinones MD [facility] [place] [address] PCP - General Internal Medicine 10/14/20 11/30/21 documented as of this encounter
--- NOTE | 2023-10-22 08:33 | DI.MAMMO_ITS ---
Exam(s) MAMMO SCREENING EXAM: MAMMO SCREENING CLINICAL HISTORY: SCREENING, Z12.31 TECHNIQUE: Mammograms were interpreted according to the usual protocol including computer analysis w [employer] CAD system, tomosynthesis and C-view imaging. COMPARISON: 2013 through 2022 FINDINGS: The breasts are composed of scattered fibroglandular densities, Breast Density category B. No suspicious masses or suspicious microcalcifications are seen. No skin thickening or abnormal axillary lymph nodes are seen. There has been no significant change from prior exams. IMPRESSION: BI-RADS Category 1, Negative mammogram Yearly screening mammography is recommended. Breast Density - Category B, scattered fibroglandular densities. A negative radiographic report should not delay biopsy if a dominant or clinically suspicious mass is present. Up to ten percent of cancers are not identified on mammography. A negative report may reinforce clinical impression. Adenosis and dense breasts may obscure an underlying neoplasm. False positive reports average 6 to 10%. Patient will receive a letter notifying them of these results.
== END 2023-10-22 00:23 ==
LOC: DI 00:04
PROVIDERS: PCP Internal Medicine; Visit Provider Internal Medicine
DX: Z12.31 Encounter for screening mammogram for malignant neoplasm of breast (principal)
CPT/HCPCS: 77063; 77067

== ENCOUNTER 2023-10-22 00:44 | Outpatient (CLI) | payer OTHER, SELFPAY ==
--- OUTSIDE RECORDS SUMMARY | 2023-10-22 00:50 | XMS_ITS | Encounter Summary ---
Author Organization [facility] [place] [address] Care Team Providers Care Honey Blender Name Role Phone Emery Ruiz MD Primary Care Provider [phone] Encounter Details Date Type Department Care Team (Latest Contact Info) Description 01/18/2023 Travel Social History Tobacco Use Types Packs/Day Years Used Date Smoking Tobacco: Never Smokeless Tobacco: Never Alcohol Use Standard Drinks/Week Comments Yes 0 (1 standard drink = 0.6 oz pure alcohol) drinks a low alcohol content wine about twice per day [facility] Utilities Answer Date Recorded In the past 12 months has [employer], gas, oil, or water [facility] threatened to shut off services in your [...] place to sleep or slept in a usp (including now)? No 01/11/2023 Education Answer Date Recorded What is the highest level of school you have completed or the highest degree you have received? Master's degree (e.g., MA, MS, Lupe, MEd, BLACKING MACHINE OPERATOR, MANNY) 01/11/2023 Sex and Gender Information Value Date Recorded Sex Assigned at Female 09/11/2020 9:02 AM EDT Gender Identity Female 09/11/2020 9:02 AM EDT Sexual Orientation Straight 02/14/2021 6: 45 PM EST documented as of this encounter Plan of Treatment Not on file documented as of this encounter Visit Diagnoses Not on filedocumented in this encounter Care Teams Honey Blender Relationship Specialty Start Date End Date Emery Ruiz MD [facility] [place] [address] PCP - General Internal Medicine 12/01/21 documented as of this encounter
--- OUTSIDE RECORDS SUMMARY | 2023-10-22 00:50 | XMS_ITS | Encounter Summary ---
Author Organization [facility] Address [address] [place] [address] Care Team Providers Care Director Broadcast Name Role Phone Unavailable Primary Care Provider Unavailabl e Encounter Details Date Type Department Care Team (Late st Contact Info) Description 10/16/2004 Results Only [facility] [address] [place] [address] Juan Whittaker MD [address] [facility] [address] [address] Social History Tobacco Use Types [...] ? JAROD MANCINI ? Accession #: ? [id number] : ? 1950 (Age: 54) ??F ?Collect Date: ? 10/16/2004 Location: ? [facility] ? Receive Date: ? 10/17/2004 Provider: ?JUAN WHITTAKER MD Copy to: ? Specimen/Source: ?ThinPrep Pap Test, Cervix/Endocervix, processed on [employer] ThinPrep Imaging System, with manual evaluation Last [...] Whittaker MD PATHOLOGY ORDERABLES [facility] [address] [place] [address] documented in this encounter Visit Diagnoses Not on filedocumented in this encounter
--- OUTSIDE RECORDS SUMMARY | 2023-10-22 00:50 | XMS_ITS | Encounter Summary ---
Author Organization [facility] Address [address] [place] [address] Care Team Providers Care Spinner Hand Name Role Phone Bobby Aldridge MD Primary Care Provider [phone] Encounter Details Date Type Department Care Team (Late st Contact Info) Description 03/22/2017 Results Only [facility] [phone] Gio Yu MD [address] [place] [address] Social History Tobacco Use Types Packs/Day Years [...] GIO YU MD Copy to: PAZ ANDREW COPYIST ? Final Report SPECIMEN ADEQUACY ? Satisfactory [...] types 16,18,31,33,35, 39,45,51,52,56,58, 59,66, and 68 by hospital insurance representative mediated amplification. Comments Document reviewed and electronically signed by: ? System Interface ? Report date: 04/01/2017 By the signature above, the attending physician certifies that he/she has personally conducted a gross and/or microscopic examination of the described specimens and rendered or confirmed the above diagnosis. End of Report [facility] 03/22/2017 03/23/2017 Gio Yu MD PATHOLOGY ORDERABLES [facility] [address] [place] [address] documented in this encounter Visit Diagnoses Not on filedocumented in this encounter Care Teams Spinner Hand Relationship Specialty Start Date End Date Bobby Aldridge MD [address] [place] [address] PCP - General 01/09/15 06/28/20 documented as of this encounter
--- OUTSIDE RECORDS SUMMARY | 2023-10-22 00:50 | XMS_ITS | Encounter Summary ---
Author Organization [facility] [place] [address] Care Team Providers Care Cell Tender Name Role Phone Emery Ruiz MD Primary Care Provider [phone] Encounter Details Date Type Department Care Team (Latest Contact Info) Description 01/11/2023 Travel Social History Tobacco Use Types Packs/Day Years Used Date Smoking Tobacco: Never Smokeless Tobacco: Never Alcohol Use Standard Drinks/Week Comments Yes 0 (1 standard drink = 0.6 oz pure alcohol) drinks a low alcohol content wine about twice per day [facility] Utilities Answer Date Recorded In the past 12 months has [employer], gas, oil, or water [employer] threatened to shut off services in your [...] place to sleep or slept in a fdc (including now)? No 01/11/2023 Education Answer Date Recorded What is the highest level of school you have completed or the highest degree you have received? Master's degree (e.g., MA, MS, Lupe, MEd, SKATES OPERATOR, MANNY) 01/11/2023 Sex and Gender Information Value Date Recorded Sex Assigned at Female 09/11/2020 9:02 AM EDT Gender Identity Female 09/11/2020 9:02 AM EDT Sexual Orientation Straight 02/14/2021 6: 45 PM EST documented as of this encounter Plan of Treatment Not on file documented as of this encounter Visit Diagnoses Not on filedocumented in this encounter Care Teams Cell Tender Relationship Specialty Start Date End Date Emery Ruiz MD [facility] GENERAL [place] [address] PCP - General Internal Medicine 12/01/21 documented as of this encounter
--- OUTSIDE RECORDS SUMMARY | 2023-10-22 00:50 | XMS_ITS | Referral Summary ---
Author Organization [facility] Address [address] [place] [address] Care Team Providers Care Chest Painting Leader Name Role Phone Mulu Alfaro MD Primary Care Provider Social History Tobacco Use Types Packs/Day Years Used Date Smoking Tobacco: Never Assessed Sex and Gender Information Value Date Recorded Sex Assigned at Not on file Gender Identity Not on file Sexual Orientation Not on file Plan of Treatment Not on file Care Teams Chest Painting Leader Relationship Specialty Start Date End Date Mulu Alfaro MD [address] [facility] [place] [address] PCP - General 06/29/20
--- OUTSIDE RECORDS SUMMARY | 2023-10-22 00:50 | XMS_ITS | Encounter Summary ---
Author Organization [facility] Address [address] [place] [address] Care Team Providers Care Visual Educator Name Role Phone Shaquille Aldridge MD Primary Care Provider [phone] Encounter Details Date Type Department Care Team (Late st Contact Info) Description 03/08/2015 Results Only [facility] [phone] Gio Yu MD [address] [place] [address] Social History Tobacco Use Types Packs/Day Years [...] types 16,18,31,33,35, 39,45,51,52,56,58, 59,66, and 68 by wood cut engraver mediated amplification. Comments Document reviewed and electronically signed by: ? System Interface ? Report date: 03/14/2015 By the signature above, the attending physician certifies that he/she has personally conducted a gross and/or microscopic examination of the described specimens and rendered or confirmed the above diagnosis. End of Report [facility] 03/08/2015 03/11/2015 Gio Yu MD PATHOLOGY ORDERABLES [facility] [address] [place] [address] documented in this encounter Visit Diagnoses Not on filedocumented in this encounter Care Teams Visual Educator Relationship Specialty Start Date End Date Shaquille Aldridge MD [address] [place] [address] PCP - General 01/09/15 06/28/20 documented as of this encounter
--- OUTSIDE RECORDS SUMMARY | 2023-10-22 00:50 | XMS_ITS | Encounter Summary ---
Author Organization [facility] Address [address] [place] [address] Care Team Providers Care Ecotherapist Name Role Phone Unavailable Primary Care Provider Unavailabl e Encounter Details Date Type Department Care Team (Late st Contact Info) Description 09/25/2002 Results Only [facility] - Maple conversion [address] [place] [address] Juan Whittaker MD 29 [facility] [address] [address] Social History Tobacco Use Types [...] ? JAROD MANCINI ? Accession #: ? [id number] : ? 1950 (Age: 52) ??F ?Collect [...] MD PATHOLOGY ORDERABLES [facility] [address] [place] [address] documented in this encounter Visit Diagnoses Not on filedocumented in this encounter
--- OUTSIDE RECORDS SUMMARY | 2023-10-22 00:50 | XMS_ITS | Encounter Summary ---
Author Organization [facility] Address [address] [place] [address] Care Team Providers Care Truck Rental Service Attendant Name Role Phone Unavailable Primary Care Provider Unavailabl e Encounter Details Date Type Department Care Team (Late st Contact Info) Description 09/15/2001 Results Only [facility] - Maple conversion [address] [place] [address] Juan Whittaker MD 29 [facility] [address] [address] Social History Tobacco Use Types [...] ? JAROD MANCINI ? Accession #: ? [id number] ? : ? 1950 (Age: 51) ??F [...] ?Specimen with polyp A2 ?Remaining specimen (Dr. Benton)/[facility] End of Report [facility] [place] 09/15/2001 09/15/2001 15: 39 EDT Juan Whittaker MD PATHOLOGY ORDERABLES Performing Organization Address City/State/[facility] Co de Phone Number [facility] [place] [address] [place] [address] documented in this encounter Visit Diagnoses Not on filedocumented in this encounter
--- OUTSIDE RECORDS SUMMARY | 2023-10-22 00:50 | XMS_ITS | Encounter Summary ---
Author Organization [facility] Address [address] [place] [address] Care Team Providers Care Barker Operator Name Role Phone Bobby Aldridge MD Primary Care Provider [phone] Encounter Details Date Type Department Care Team (Late st Contact Info) Description 04/18/2018 Results Only [facility] [phone] Claribel Oliva MD [facility] [place], [place] [address] Social History Tobacco Use Types Packs/Day Years [...] ? JAROD MANCINI ? Accession #: ? [id number] ? : ? 1950 (Age: 67) ??F [...] and electronically signed by: ? Falguni Han, [facility](ASCP) ? Report ??Date: 04/20/2018 11:08 HPV with Pap Test ? Date Ordered: ? 04/20/2018 ? Status: ?? Signed Out ?Date Complete: ? 04/21/2018 ? By: ??System Interface ? Date Reported: ? 04/21/2018 ? Interpretation RESULT: Negative for HPV. No E6 or E7 mRNA is detected from HPV types 16,18,31,33,35, 39,45,51,52,56,58, 59,66, and 68 by gang punch operator mediated amplification. Comments Document reviewed and electronically signed by: ? System Interface ? Report date: 04/21/2018 By the signature above, the attending physician certifies that he/she has personally conducted a gross and/or microscopic examination of the described specimens and rendered or confirmed the above diagnosis. End of Report [facility] 04/18/2018 04/19/2018 Claribel Oliva MD PATHOLOGY ORDERABLES [facility] [address] [place] [address] documented in this encounter Visit Diagnoses Not on filedocumented in this encounter Care Teams Barker Operator Relationship Specialty Start Date End Date Bobby Aldridge MD [address] [place] [address] PCP - General 01/09/15 06/28/20 documented as of this encounter
--- OUTSIDE RECORDS SUMMARY | 2023-10-22 00:50 | XMS_ITS | Clinical Summary ---
Author Organization [facility] Address [address] [place] [address] Care Team Providers Care Steno Typist Name Role Phone Mulu Alfaro MD Primary Care Provider [phone] Social History Tobacco Use Types Packs/Day Years [...] COVID-19 Vaccine ( season) 2022 Care Teams Steno Typist Relationship Specialty Start Date End Date Mulu Alfaro MD [address] [place] [address] PCP - General 06/29/20
--- OUTSIDE RECORDS SUMMARY | 2023-10-22 00:50 | XMS_ITS | Encounter Summary ---
Author Organization [facility] Address [address] [place] [address] Care Team Providers Care Grain Drier Name Role Phone Unavailable Primary Care Provider Unavailabl e Encounter Details Date Type Department Care Team (Late st Contact Info) Description 09/28/2003 Results Only [facility] - Maple conversion [address] [place] [address] Juan Whittaker MD 29 [facility] [address] [address] Social History Tobacco Use Types [...] ? JAROD MANCINI ? Accession #: ? [id number] : ? 1950 (Age: 53) ??F ?Collect [...] and electronically signed by: ? Sabrina Gonzalez [facility](ASCP) ? Report Date: ??10/05/2003 11:15 End of Report [facility] [place] 09/28/2003 10/01/2003 Juan Whittaker MD PATHOLOGY ORDERABLES [facility] [address] [place] [address] documented in this encounter Visit Diagnoses Not on filedocumented in this encounter
--- OUTSIDE RECORDS SUMMARY | 2023-10-22 00:50 | XMS_ITS | Encounter Summary ---
Author Organization Replaced By [facility] [place] [place] [address] [place] [address] Care Team Providers Care Adjunct Political Science Instructor Name Role Phone Emery Ruiz MD Primary Care Provider [phone] Encounter Details Date Type Department Care Team (Late st Contact Info) Description 08/09/2023 Orders Only Internal Medicine at [address] [address] Monisha Trevizo RN Social History Tobacco Use Types Packs/Day Years Used Date Smoking Tobacco: Never Smokeless Tobacco: Never Alcohol Use Standard Drinks/Week Comments Yes 0 (1 standard drink = 0.6 oz pure alcohol) drinks a low alcohol content wine about twice per day [facility] Utilities Answer Date Recorded In the past 12 months has [employer], gas, oil, or water company threatened to [...] Master's degree (e.g., MA, MS, Lupe, MEd, BIOPSYCHOLOGIST, MANNY) 01/11/2023 Sex and Gender Information Value Date Recorded Sex Assigned at Female 09/11/2020 9:02 AM EDT Gender Identity Female 09/11/2020 9:02 AM EDT Sexual Orientation Straight 02/14/2021 6: 45 PM EST documented as of this encounter Plan of Treatment Not on file documented as of this encounter Visit Diagnoses Not on filedocumented in this encounter Care Teams Adjunct Political Science Instructor Relationship Specialty Start Date End Date Emery Ruiz MD [facility] [place] [address] PCP - General Internal Medicine 12/01/21 documented as of this encounter
--- OUTSIDE RECORDS SUMMARY | 2023-10-22 00:50 | XMS_ITS | Encounter Summary ---
Author Organization [facility] Address [address] [place] [address] Care Team Providers Care Fancy Packer Name Role Phone Unavailable Primary Care Provider Unavailabl e Encounter Details Date Type Department Care Team (Late st Contact Info) Description 01/07/2015 Results Only [facility] [phone] Kenny Lombardo, DO [address] [facility] [address] [place] [address] Social History Tobacco Use Types Packs/Day Years [...] JAROD MANCINI Jose ? Accession #: ? [id number] ? : ? 1950 (Age: 64) ??F ? Collect Date: ? 01/07/2015 ? Location: ? [facility] ? Receive Date: ? 01/07/2015 ? Provider: KENNY LOMABRDO DO Copy to: [place] MD ? [...] Engel 01/08/2015 9:25 AM End of Report [facility] 01/07/2015 18:2 6 EST 01/07/2015 18:26 EST Kenny Lombardo DO PATHOLOGY ORDER JAYLENE [facility] [address] [place] [address] documented in this encounter Visit Diagnoses Not on filedocumented in this encounter
--- OUTSIDE RECORDS SUMMARY | 2023-10-22 00:50 | XMS_ITS | Clinical Summary ---
Author Organization [facility] [place] [address] [place] [address] Care Team Providers Care Informix Developer Name Role Phone Emery Ruiz MD Primary Care Provider [phone] Allergies Active Allergy Reactions Criticality Noted Date [...] Description 08/09/2023 Orders Only Internal Medicine at [address] [address] Monisha Trevizo, RN Encounter for screening mammogram for malignant neoplasm of breast 08/09/2023 Orders Only Internal Medicine at [address] [place] [address] Monisha Trevizo, RN from Last 3 Months Immunizations Name Administration Dates Next Due Covid-19 (Moderna SPIKEVAX 2 023) Vaccine 50mcg( 12yrs+) 12/17/2022 Influenza (Fluzone HD) Quadr ivalent High Dose, Preservative Free 12/03/2022 Influenza (Fluzone HD) Triva lent High Dose 12/03/2022,12/26/2021,10/14/2020,2018 Influenza Quadrivalent with Preservative 11/30/2019,11/15/2017 Influenza Unspecified Formulation 12/13/2016,01/2016 Moderna Covid-19 Monovalent 12Yr+ (Winterizer 100mcg) 12/17/2022,11/28/2021,06/13/2021,2020,03/18/2020,02/20/2020 Tdap 06/28/2021,06/29/2005 Zoster (ShingRix), Recombinant [...] wine about twice per day [facility] Utilities Answer Date Recorded In the past 12 months has [employer], oil, or water [employer] threatened to shut off services in your [...] slept in a mcc (including now)? No 01/11/2023 Education Answer Date Recorded What is the highest level of school you have completed or the highest degree you have received? Master's degree (e.g., MA, MS, Lupe, MEd, ELECTRICAL ENGINEER MEP, MANNY) 01/11/2023 Sex and Gender Information Value [...] Tdap adult Completed 06/28/2021, 06/29/2005 Care Teams Informix Developer Relationship Specialty Start Date End Date Emery Ruiz MD [facility] MED-[place], [place] [id number] PCP - General Internal Medicine 12/01/21
--- OUTSIDE RECORDS SUMMARY | 2023-10-22 00:50 | XMS_ITS | Encounter Summary ---
Author Organization [facility] Address [address] [place] [address] Care Team Providers Care Certified Dietary Manager Name Role Phone Unavailable Primary Care Provider Unavailabl e Encounter Details Date Type Department Care Team (Late st Contact Info) Description 09/19/2012 Results Only [facility] [phone] Gio Kamara MD [address] [place] [address] Social History Tobacco Use Types Packs/Day Years [...] ? JAROD MANCINI ? Accession #: ? [id number] ? : ? 1950 (Age: 62) ??F [...] types 16,18,31,33,35, 39,45,51,52,56,58, 59,66, and 68 by diesel engine mechanic apprentice mediated amplification. Comments Document reviewed and electronically signed by: ? System Interface ? Report date: 09/30/2012 By the signature above, the attending physician certifies that he/she has personally conducted a gross and/or microscopic examination of the described specimens and rendered or confirmed the above diagnosis. End of Report [facility] 09/19/2012 09/21/2012 Gio Kamara MD PATHOLOGY ORDERABLES [facility] [address] [place] [address] documented in this encounter Visit Diagnoses Not on filedocumented in this encounter
--- OUTSIDE RECORDS SUMMARY | 2023-10-22 00:50 | XMS_ITS | Encounter Summary ---
Author Organization [facility] Address [address] [place] [address] Care Team Providers Care Business Operations Coordinator Name Role Phone Mulu Alfaro MD Primary Care Provider Encounter Details Date Type Department Care Team (Late st Contact Info) Description 07/16/2020 Lab Requisition [facility] Pathology & Laboratory Medicine - [facility] [address] [place] [address] Caroline Eddy MD [address] [place] [address] [place] [address] Encounter for other general examination Social History [...] - Deeper levels examined. 07/18/2020 8:[address] [facility] Attestation By the signature below, the attending physician certifies that they have 1) personally conducted a gross and/or microscopic examination of the described specimen(s), and/or personally interpreted the results of laboratory testing of the described specimen(s), and 2) personally rendered or confirmed the above diagnosis. 07/18/2020 8:[address] [facility] at 0837 Clinical History Hx of polyps; diverticulosis 07/18/2020 8:[address] [facility] Gross Description A. Received in formalin labelled with proper patient identification (initials R, J) and ascending colon polyp is a leigh to brown tissue (0.3 x 0.2 x 0.2 cm). Submitted intact in A1. Neftali Chavira 07/16/2020 9:30 07/18/2020 8:[address] [facility] Performing Lab [facility] 07/18/2020 8:[address] [facility] Scanned Images 07/18/2020 8:[address] [facility] Tissue ASCENDING COLON STRUCTURE / Unknown 07/15/2020 12:31 EDT 07/16/2020 8:37 EDT Caroline Eddy MD PATHOLOGY ORDERA BLAISE [facility] [address] [place] [address] documented in this encounter Visit Diagnoses Diagnosis Encounter for other general examination documented in this encounter Care Teams Business Operations Coordinator Relationship Specialty Start Date End Date Mulu Alfaro MD [address] [facility] [place] [address] PCP - General 06/29/20 documented as of this encounter
--- OUTSIDE RECORDS SUMMARY | 2023-10-22 00:50 | XMS_ITS | Encounter Summary ---
Author Organization [facility] Address [address] [place] [address] Care Team Providers Care Strategic Consultant Name Role Phone Unavailable Primary Care Provider Unavailabl e Encounter Details Date Type Department Care Team (Late st Contact Info) Description 08/01/2001 Results Only [facility] - Maple conversion [address] [place] [address] Juan Whittaker MD 29 [facility] [address] [address] Social History Tobacco Use Types [...] ? JAROD MANCINI ? Accession #: ? [id number] : ? 1950 (Age: 51) ??F ?Collect [...] Whittaker MD PATHOLOGY ORDERABLES [facility] [address] [place] [address] documented in this encounter Visit Diagnoses Not on filedocumented in this encounter
--- OUTSIDE RECORDS SUMMARY | 2023-10-22 00:50 | XMS_ITS | Encounter Summary ---
Author Organization [facility] Address [address] [place] [address] Care Team Providers Care Transitional Living Specialist Name Role Phone Unavailable Primary Care Provider Unavailabl e Encounter Details Date Type Department Care Team (Latest Contact Info) Description 01/07/2015 8:57 EST - 01/07/2015 23:59 EST Hospital Encounter [address] [address] Unknown, Provider, Discharge Disposition: Home or Self Care Social History Tobacco Use Types Packs/Day Years Used Date Smoking Tobacco: Never Assessed Sex and Gender Information Value Date Recorded Sex Assigned at Not on file Gender Identity Not on file Sexual Orientation Not on file documented as of this encounter Discharge Disposition Disposition Code Departure Means Destination Home or Self Senior Living documented in this encounter Plan of Treatment Not on file documented as of this encounter Visit Diagnoses Not on filedocumented in this encounter
--- OUTSIDE RECORDS SUMMARY | 2023-10-22 00:50 | XMS_ITS | Encounter Summary ---
Author Organization [facility] Address [address] [place] [address] Care Team Providers Care Tandem Mill Sticker Name Role Phone Unavailable Primary Care Provider Unavailabl e Encounter Details Date Type Department Care Team (Late st Contact Info) Description 01/14/2009 Orders Only [facility] [phone] Gio Kamara MD [address] [place] [address] Social History Tobacco Use Types Packs/Day Years [...] MICROBIOLOGY - GENER AL ORDERABLES [facility] [address] [place] [address] * CYTOPATHOLOGY (01/14/2009 0:00 EST) Pathology Report: CYTOPATHOLOGY REPORT ? Reports generated via electronic interface contain original data; ? however they are lacking the format of the original report. ? Caution should be taken when reading/interpreti ng unformatted reports. ? Name: ? JAROD MANCINI ? Accession #: ? [id number] ? : ? 1950 (Age: 58) ??F [...] MD PATHOLOGY ORDERABLES [facility] [address] [place] [address] documented in this encounter Visit Diagnoses Not on filedocumented in this encounter
--- OUTSIDE RECORDS SUMMARY | 2023-10-22 00:50 | XMS_ITS | Encounter Summary ---
Author Organization [facility] Address [address] [place] [address] Care Team Providers Care Knurling Machine Operator Name Role Phone Unavailable Primary Care Provider Unavailabl e Encounter Details Date Type Department Care Team (Late st Contact Info) Description 02/18/2007 Results Only [facility] - Maple conversion [address] [place] [address] Juan Whittaker MD 29 [facility] [address] [address] Social History Tobacco Use Types [...] ? JAROD MANCINI ? Accession #: ? [id number] : ? 1950 (Age: 56) ??F ?Collect Date: ? 02/18/2007 Location: ? [facility] ? Receive Date: ? 02/23/2007 Provider: ?JUAN WHITTAKER MD Copy to: ? Specimen/Source: ?ThinPrep Pap Test, Cervix/Endocervix, processed on Mobile Event GuidePrep Imaging System, with manual evaluation Last Menstrual Period: ? SPECIMEN ADEQUACY ? Satisfactory for Evaluation - transformation zone component present GENERAL CATEGORIZATION ? Negative for Intraepithelial Lesion or Malignancy ? Document reviewed and electronically signed by: ? Cathryn Caro, CT(ASCP) ? Report Date: ??02/25/2007 10:43 End of Report [facility] 02/18/2007 02/23/2007 Juan Whittaker MD PATHOLOGY ORDERABLES [facility] [address] [place] [address] documented in this encounter Visit Diagnoses Not on filedocumented in this encounter
--- OUTSIDE RECORDS SUMMARY | 2023-10-22 00:50 | XMS_ITS | Encounter Summary ---
Author Organization [facility] Address [address] [place] [address] Care Team Providers Care Director Writing Name Role Phone Unavailable Primary Care Provider Unavailabl e Encounter Details Date Type Department Care Team (Late st Contact Info) Description 02/20/2008 Before PRISM Converted Visit (Maple) [facility] - Maple conversion [address] [place] [address] Juan Whittaker MD 29 [facility] [address] [place] [address] Social History Tobacco Use Types [...] ? JAROD MANCINI ? Accession #: ? [id number] ? : ? 1950 (Age: 57) ??F [...] 14:15 ? End of Report ? [facility] 02/20/2008 02/21/2008 Juan Whittaker MD PATHOLOGY ORDERABLES [facility] [address] [place] [address] documented in this encounter Visit Diagnoses Not on filedocumented in this encounter
--- OUTSIDE RECORDS SUMMARY | 2023-10-22 00:50 | XMS_ITS | Encounter Summary ---
Author Organization [facility] Address [address] [place] [address] Care Team Providers Care Rubber Goods Assembler Name Role Phone Unavailable Primary Care Provider Unavailabl e Encounter Details Date Type Department Care Team (Late st Contact Info) Description 07/22/1999 Results Only [facility] - Maple conversion [address] [place] [address] Juan Whittaker MD 29 [facility] [address] [address] Social History Tobacco Use Types [...] ? JAROD MANCINI ? Accession #: ? [id number] : ? 1950 (Age: 49) ??F ?Collect [...] Whittaker MD PATHOLOGY ORDERABLES Performing Organization Address City/State/[facility] Co de Phone Number [facility] [address] [place] [address] documented in this encounter Visit Diagnoses Not on filedocumented in this encounter
--- OUTSIDE RECORDS SUMMARY | 2023-10-22 00:50 | XMS_ITS | Encounter Summary ---
Author Organization [facility] Address [address] [place] [address] Care Team Providers Care Coal Cutter Name Role Phone Unavailable Primary Care Provider Unavailabl e Encounter Details Date Type Department Care Team (Late st Contact Info) Description 12/08/[address] Results [address] [facility] - Maple conversion [address] [place] [address] Juan Whittaker MD 29 [facility] [address] [address] Social History Tobacco Use Types [...] ? JAROD MANCINI ? Accession #: ? [id number] : ? 1950 (Age: 55) ??F ?Collect Date: ? 12/08/2005 Location: ? [facility] ? Receive Date: ? 12/09/2005 Provider: ?JUAN WHITTAKER MD Copy to: ? Specimen/Source: ?ThinPrep Pap Test, Cervix/Endocervix, processed on Graine de CadeauxPrep Imaging System, with manual evaluation Last Menstrual [...] Whittaker MD PATHOLOGY ORDERABLES Performing Organization Address City/State/[facility] Co de Phone Number [facility] [address] [place] [address] documented in this encounter Visit Diagnoses Not on filedocumented in this encounter
--- OUTSIDE RECORDS SUMMARY | 2023-10-22 00:50 | XMS_ITS | Encounter Summary ---
Author Organization [facility] [place] [address] Care Team Providers Care Lease Out Man Name Role Phone Emery Ruiz MD Primary Care Provider [phone] Encounter Details Date Type Department Care Team (Late st Contact Info) Description 08/09/2023 Orders Only Internal Medicine at [address] [address] Monisha Trevizo RN Encounter for screening mammogram for malignant neoplasm of breast Social History Tobacco Use Types Packs/Day Years Used Date Smoking Tobacco: Never Smokeless Tobacco: Never Alcohol Use Standard Drinks/Week Comments Yes 0 (1 standard drink = 0.6 oz pure alcohol) drinks a low alcohol content wine about twice per day [facility] Utilities Answer Date Recorded In the past 12 months has [employer], gas, oil, or water [employer] threatened to shut off services in your [...] Master's degree (e.g., MA, MS, Lupe, MEd, BUSINESS SERVICES VICE PRESIDENT, MANNY) 01/11/2023 Sex and Gender Information Value [...] mammogram documented in this encounter Care Teams Lease Out Man Relationship Specialty Start Date End Date Emery Ruiz MD [facility] INTERNAL [place] [address] PCP - General Internal Medicine 12/01/21 documented as of this encounter
--- OUTSIDE RECORDS SUMMARY | 2023-10-22 00:50 | XMS_ITS | Encounter Summary ---
[facility] Address [facility] [place] [address] Care Team Providers Care Art Installer Name Role Phone Emery Ruiz MD Primary Care Provider [phone] Reason for Visit * Reason Comments Annual Exam Encounter Details Date Type Department Care Team (Late st Contact Info) Description 01/18/2023 9:40 AM EST Office Visit Internal Medicine at [address] [id number] Emery Ruiz MD [facility] [place] [address] Annual physical exam; Hyperlipidemia, unspecified hyperlipidemia type; Vitamin D deficiency; Lichen simplex chronicus Social History Tobacco Use Types Packs/Day Years Used Date Smoking Tobacco: Never Smokeless Tobacco: Never Alcohol Use Standard Drinks/Week Comments Yes 0 (1 standard drink = 0.6 oz pure alcohol) drinks a low alcohol content wine about twice per day [facility] Utilities Answer Date Recorded In the past 12 months has [employer], gas, oil, or water [employer] threatened to shut off services in your [...] place to sleep or slept in a senior living (including now)? No 01/11/2023 Education Answer Date Recorded What is the highest level of school you have completed or the highest degree you have received? 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 was recently diagnosed with lung cancer recurrence [...] recovered post-chemo Questionnaire Responses: 01/11/2023 3:55 PM [facility] Primary Care Responses PROMIS 10-Rate of fatigue [...] chronicus documented in this encounter Care Teams Art Installer Relationship Specialty Start Date End Date Emery Ruiz MD [facility] [place] [address] PCP - General Internal Medicine 12/01/21 documented as of this encounter
--- OUTSIDE RECORDS SUMMARY | 2023-10-22 00:50 | XMS_ITS | Encounter Summary ---
Author Organization [facility] Address [address] [place] [address] Care Team Providers Care Geologist Petroleum Name Role Phone Unavailable Primary Care Provider Unavailabl e Encounter Details Date Type Department Care Team (Late st Contact Info) Description 07/12/2000 Results Only [facility] - Maple conversion [address] [place] [address] Loli Oneill, GALLERY OR MUSEUM GUIDE Social History Tobacco Use Types Packs/Day Years [...] ? JAROD MANCINI ? Accession #: ? [id number] : ? 1950 (Age: 50) ??F ?Collect Date: ? 07/12/2000 Location: ? [facility] ? Receive Date: ? 07/14/2000 Provider: ?LOLI ONEILL GALLERY OR MUSEUM GUIDE Copy to: ? Specimen/Source: ?ThinPrep Pap Test, [...] Oneill NP PATHOLOGY ORDERABLES [place] [address] [place] [address] documented in this encounter Visit Diagnoses Not on filedocumented in this encounter
--- OUTSIDE RECORDS SUMMARY | 2023-10-22 00:51 | XMS_ITS | Encounter Summary ---
[facility] [place] [address] Care Team Providers Care Front End Specialist Name Role Phone Emery Ruiz MD Primary Care Provider Reason for Referral * Consultation (Urgent) - Duplicate Referral Specialty Diagnoses / Procedures Referred By Contkatie t Referred To Contact Dermatology Diagnoses Cellulitis of left upper extremity Emery Ruiz MD [facility] [address] GENERAL [place] [address] [facility] Dermatology [address] [place] [address] Referral ID Status Reason Start Date Expiration Date Visits Requested Visits Authorized [id number] Duplicate Referral Consult, Test & Treat 01/05/2022 01/05/2023 10 10 Reason for Visit * Reason Onset Date Comments Referral 01/05/2022 Encounter Details Date Type Department Care Team (Late st Contact Info) Description 01/05/2022 Telephone Internal Medicine at [address] [address] Emery Ruiz MD [facility] [address] GENER[facility] [place], [place] [id number] Referral Social History Tobacco Use Types Packs/Day [...] Patient requesting stat referral be re-faxed to [facility] Derm. New referral order pended and forwarded to OG Aldana for review. * Telephone Encounter - Kenton Khan - 01/05/2022 8:42 AM EST Message: Patient called stating she has a referral to [facility] Dermatology, see referral and OV 01/02/22. She [...] message, when revised referral is faxed to [phone]. Ask caller their first and last name and relationship to the patient: [facility] Best time to call back: any Ok to leave a message: y Ok to send - message: y Offered Appointment: n MA/Nurse/Movie Editor contacted via: Message: y Call: n Pager: [...] forearm documented in this encounter Care Teams Front End Specialist Relationship Specialty Start Date End Date Emery Ruiz MD [facility] [address] PCP - General Internal Medicine 12/01/21 documented as of this encounter
--- OUTSIDE RECORDS SUMMARY | 2023-10-22 00:51 | XMS_ITS | Encounter Summary ---
Author Organization [facility] [place] [address] Care Team Providers Care Negative Cleaner Name Role Phone Emery Ruiz MD Primary Care Provider [phone] Encounter Details Date Type Department Care Team [...] on filedocumented in this encounter Care Teams Negative Cleaner Relationship Specialty Start Date End Date Emery Ruiz MD [facility] [place] [address] PCP - General Internal Medicine 12/01/21 documented as of this encounter
--- OUTSIDE RECORDS SUMMARY | 2023-10-22 00:51 | XMS_ITS | Encounter Summary ---
Author Organization [facility] [place] [address] Care Team Providers Care C D Reactor Operator Name Role Phone Tim Quinones MD Primary Care Provider [phone] Encounter Details Date Type Department Care Team (Late st Contact Info) Description 04/21/2021 2:30 PM [facility] Public [place] [id number] Diarrhea, unspecified type Social History Tobacco Use [...] EST) SARS-CoV-2 RNA Not Detected Not Detected [facility] Comment: This result should be [...] diagnosis of COVID-19 is performed using the 1.618 Technolog[employer]ity m SARS-CoV-2 Assay as authorized by the FDA Emergency Use Authorization (EUA). This EUA assay is intended for In-vitro Diagnostic (IVD) use with respiratory specimens such as nasopharyngeal swabs collected from individuals during the acute phase of infection. This assay is performed based on the instructions for use provided by [employer] and additional guidance provided by CDC and FDA. Testing is performed in the Clinical Genomics and Advanced Technology Laboratory within the Department of Pathology and Laboratory Medicine at [facility], certified under the Clinical Laboratory Improvement Amendments [...] fact sheets at the following FDA website: https://www.fda.gov/medical-devices/tcbuletjegv-pnbgakh-0441-azats-70-rnusqnjpl- use-a rxewwfhayeoex-qubrjww-qoqibzd/vqiqa-ngdourtgsac-krly SARS-CoV-2 RNA Source DIRECTOR EXTERNAL COMMUNICATIONS Swab [facility] Nasopharyngeal Swab 04/21/19 5:31 PM EST 04/21/2021 5:31 PM EST Comment:Symptoms->Fever / Re spiratory Symptoms Narrative Resulting Agency Comment Spec In Lab Juliana Stewart AREA DIRECTOR MOLECULAR ORDERABLES [facility] [place] [address] documented in this encounter Visit Diagnoses Diagnosis Diarrhea, unspecified type documented in this encounter Care Teams C D Reactor Operator Relationship Specialty Start Date End Date Tim Quinones MD [facility] GENER[place] [address] [place] [address] PCP - General Internal Medicine 10/14/20 11/30/21 documented as of this encounter
--- OUTSIDE RECORDS SUMMARY | 2023-10-22 00:51 | XMS_ITS | Encounter Summary ---
Author Organization [facility] Address [facility] [place] [address] Care Team Providers Care Rag Cutting Machine Tender Name Role Phone Mulu Alfaro MD Primary Care Provider Encounter Details Date Type Department Care Team (Late st Contact Info) Description 09/20/2020 3:40 PM EDT Office Visit Dermatology at [facility] [address] [place] [address] Yosef Pacheco MD [facility] [place] [address] Dermatitis; Lichen simplex chronicus Social History Tobacco [...] FSE [] Follow up []Note routed to medical unit secretary []Recall has been placed in scheduling system [x]Appointment scheduled at checkout Scribe attestation: Linnette Light [facility] who has performed the documentation for this encounter inthe presence of and acting as a scribe for Yosef Pacheco MD. I performed the above scribed service and agree with the accuracy of the documentation in this encounter. Reviewed and signed by: Yosef Pacheco MD Dermatology [facility] Patient seen and evaluated with staff scalping machine operator: Angelito Shearer MD Dermatology [facility] * Angelito Shearer III, MD - 09/20/2020 [...] bacterial morphotypes suggestive of normal cutaneous jennifer [facility] Gram Stain No Neutrophils seen. No microorganisms seen. [facility] Superficial Wound NECK STRUCTURE / Unknown 09/20/2020 4:44 PM EDT 09/20/2020 6:12 PM EDT Narrative Resulting Agency Comment Spec In Lab Angelito Shearer III, MD MICROBIOLOGY - GENERAL ORDERABLES [facility] [place] [address] documented in this encounter Visit Diagnoses Diagnosis Dermatitis Contact dermatitis and other eczema, due to unspecified cause Lichen simplex chronicus Lichenification and lichen simplex chronicus documented in this encounter Care Teams Rag Cutting Machine Tender Relationship Specialty Start Date End Date Mulu Alfaro MD [address] [place] [phone] PCP - General General Internal Medicine 09/20/20 8/07/19 documented as of this encounter
--- OUTSIDE RECORDS SUMMARY | 2023-10-22 00:51 | XMS_ITS | Encounter Summary ---
Author Organization [facility] [address] Care Team Providers Care Custom Feed Mill Operator Name Role Phone Emery Ruiz MD Primary Care Provider [phone] Reason for Visit * Consultation (Urgent) - Closed Specialty Diagnoses / Procedures Referred By Iona munoz Referred To Contact Dermatology Diagnoses Cellulitis of left upper extremity Yosef Malone PA [facility] [place] [address] [facility] D[facility]at[facility] [address] [place] [address] Referral ID Status Reason Start Date Expiration Date V isits Requested Visits Authorized [id number] Closed Consult, Test & Treat 01/02/2022 01/02/2023 1 1 Encounter Details Date Type Department Care Team (Late st Contact Info) Description 01/07/2022 1:20 PM EST Office Visit Dermatology at [facility] [address] [place] [address] Gaston Salgado MD [facility] DR YURI[address] [place] [address] Arthropod bite, initial encounter Social History Tobacco [...] place to sleep or slept in a correction (including now)? No 12/01/2020 Sex and Gender [...] from Dr. Pacheco. You can give my press secretary a call to schedule something if you'd [...] area fails to resolve []Note routed to press secretary []Recall placed in scheduling system []Appointment scheduled at checkout Scribe attestation: Linnette Light [facility] has performed the documentation for this encounter in thepresence of and acting as a scribe for Gaston Salgado MD. I performed the above scribed service and agree with the accuracy of the documentation in this encounter. Reviewed and signed by: Gaston Salgado MD Dermatology [facility] Patient seen and evaluated with staff soft shoe dancer: Deya Wilkerson MD Dermatology [facility] * Deya Wilkerson MD - 01/07/2022 1:20 [...] encounter documented in this encounter Care Teams Custom Feed Mill Operator Relationship Specialty Start Date End Date Emery Ruiz MD [facility] GENERAL [place] [address] [place] [address] PCP - General Internal Medicine 12/01/21 documented as of this encounter
--- OUTSIDE RECORDS SUMMARY | 2023-10-22 00:51 | XMS_ITS | Encounter Summary ---
Author Organization [facility] [place] [address] Care Team Providers Care Carpenter Helper Hardwood Flooring Name Role Phone Emery Ruiz MD Primary Care Provider [phone] Encounter Details Date Type Department Care Team [...] on filedocumented in this encounter Care Teams Carpenter Helper Hardwood Flooring Relationship Specialty Start Date End Date Emery Ruiz MD [facility] [place] [address] PCP - General Internal Medicine 12/01/21 documented as of this encounter
--- OUTSIDE RECORDS SUMMARY | 2023-10-22 00:51 | XMS_ITS | Encounter Summary ---
Author Organization [facility] Address [facility] [place] [address] Care Team Providers Care Motor Vehicle Clerk Name Role Phone Emery Ruiz MD Primary Care Provider [phone] Reason for Referral * Consultation (Urgent) - Closed Specialty Diagnoses / Procedures Referred By Contac t Referred To Contact Dermatology Diagnoses Cellulitis of left upper extremity Yosef Malone PA [facility] [place] [address] [facility] Dermatology [address] [place] [address] Referral ID Status Reason Start Date Expiration Date V isits Requested Visits Authorized [id number] Closed Consult, Test & Treat 01/02/2022 01/02/2023 1 1 Reason for Visit * Reason Comments Blister On left wrist since 12/18/21, swollen. Was seen at urgent care and debrided. Recommended to f/u with pcp Encounter Details Date Type Department Care Team (Late st Contact Info) Description 01/02/2022 8:40 AM EDT Office Visit Internal Medicine at [address] [address] Yosef Malone PA [facility] [place] [address] Cellulitis of left upper extremity [...] ago on 12/18/21. 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 While there, a nurse noticed an asymptomatic blister on her wrist. She went to urgent care in [place] and it was unroofed and cleaned the [...] Center 01/16/2022 8:40 AM Emery Ruiz MD [facility] documented in this encounter Plan of Treatment Scheduled Referrals Name Type Priority Associated Diagnoses Order Schedule Referral to Dermatology Outpatient Referral Routine Cellulitis of left upper extremity Ordered: 01/02/2022 documented as of this encounter Visit Diagnoses Diagnosis Cellulitis of left upper extremity Cellulitis and abscess of upper arm and forearm documented in this encounter Care Teams Motor Vehicle Clerk Relationship Specialty Start Date End Date Emery Ruiz MD [facility] GENER[facility] [place] [address] PCP - General Internal Medicine 12/01/21 documented as of this encounter
--- OUTSIDE RECORDS SUMMARY | 2023-10-22 00:51 | XMS_ITS | Encounter Summary ---
Author Organization [facility] Address [facility] [place] [address] Care Team Providers Care Cloth Shearer Name Role Phone Tim Quinones MD Primary Care Provider [phone] Reason for Visit * Reason Comments Medication Refill Encounter Details Date Type Department Care Team (Late st Contact Info) Description 02/25/[address] [facility] [address] [place] [address] Yosef Pacheco MD [facility] [address] [place] [address] Lichen simplex chronicus Social History Tobacco Use [...] place to sleep or slept in a intermediate (including now)? No 12/01/2020 Sex and Gender [...] chronicus documented in this encounter Care Teams Cloth Shearer Relationship Specialty Start Date End Date Tim Quinones MD [facility] GENER[place] [address] PCP - General Internal Medicine 10/14/20 11/30/21 documented as of this encounter
--- OUTSIDE RECORDS SUMMARY | 2023-10-22 00:51 | XMS_ITS | Encounter Summary ---
Author Organization [facility] [place] [address] Care Team Providers Care Mobility Specialist Name Role Phone Emery Ruiz MD Primary Care Provider [phone] Encounter Details Date Type Department Care Team [...] on filedocumented in this encounter Care Teams Mobility Specialist Relationship Specialty Start Date End Date Emery Ruiz MD [facility] [place] [address] PCP - General Internal Medicine 12/01/21 documented as of this encounter
--- OUTSIDE RECORDS SUMMARY | 2023-10-22 00:51 | XMS_ITS | Encounter Summary ---
Author Organization [facility] Address [facility] [place] [address] Care Team Providers Care Pain Management Nurse Practitioner Name Role Phone Tim Quinones MD Primary Care Provider [phone] Encounter Details Date Type Department Care Team (Late st Contact Info) Description 02/07/2021 3:40 PM EST Ancillary Procedure [place] [address] Tim Quinones MD [facility] [place] [address] Social History Tobacco Use Types Packs/Day Years [...] DXA Images (02/07/2021 3:36 PM EST) Narrative [facility] - 02/07/2021 3:36 PM EST This exam is auto-finalizing. It's purpose is for storage only. Tim Quinones MD IMG FILM LIBRARY ORD ERABLES [place], [place] documented in this encounter Visit Diagnoses Not on filedocumented in this encounter Care Teams Pain Management Nurse Practitioner Relationship Specialty Start Date End Date Tim Quinones MD [facility] [place] [address] PCP - General Internal Medicine 10/14/20 11/30/21 documented as of this encounter
--- OUTSIDE RECORDS SUMMARY | 2023-10-22 00:51 | XMS_ITS | Encounter Summary ---
Author Organization [facility] Address [facility] [place] [address] Care Team Providers Care Manager Operations Name Role Phone Emery Ruiz MD Primary Care Provider [phone] Encounter Details Date Type Department Care Team (Late st Contact Info) Description 01/05/2022 Telephone Derm[address] at [facility] [address] [place] [address] Gaston Salgado MD [facility] [place] [address] Social History Tobacco Use Types Packs/Day Years [...] can you please call the patient at [phone] to reschedule. Thank you documented in this encounter Plan of Treatment Not on file documented as of this encounter Visit Diagnoses Not on filedocumented in this encounter Care Teams Manager Operations Relationship Specialty Start Date End Date Emery Ruiz MD [facility] [place] [address] PCP - General Internal Medicine 12/01/21 documented as of this encounter
--- OUTSIDE RECORDS SUMMARY | 2023-10-22 00:51 | XMS_ITS | Encounter Summary ---
Author Organization [facility] Address [facility] [place] [address] Care Team Providers Care Grain Mill Products Inspector Name Role Phone Emery Ruiz MD Primary Care Provider [phone] Encounter Details Date Type Department Care Team (Late st Contact Info) Description 12/29/2021 Telephone Internal Medicine at [address] [id number] Emery Ruiz MD [facility] [place] [address] Social History Tobacco Use Types Packs/Day Years [...] place to sleep or slept in a half-way (including now)? No 12/01/2020 Sex and Gender [...] was ok with due to insurance issue. MA/Nurse/[place] contacted via: Message: y Call: n Pager: n documented in this encounter Plan of Treatment Not on file documented as of this encounter Visit Diagnoses Not on filedocumented in this encounter Care Teams Grain Mill Products Inspector Relationship Specialty Start Date End Date Emery Ruiz MD [facility] GENERAL [place] [address] PCP - General Internal Medicine 12/01/21 documented as of this encounter
--- OUTSIDE RECORDS SUMMARY | 2023-10-22 00:51 | XMS_ITS | Encounter Summary ---
Author Organization [facility] [place] [address] Care Team Providers Care Gas Examiner Name Role Phone Emery Ruiz MD Primary Care Provider [phone] Encounter Details Date Type Department Care Team [...] place to sleep or slept in a penitentiary (including now)? No 12/01/2020 Sex and Gender Information Value Date Recorded Sex Assigned at Female 09/11/2020 9:02 AM EDT Gender Identity Female 09/11/2020 9:02 AM EDT Sexual Orientation Straight 02/14/2021 6: 45 PM EST documented as of this encounter Plan of Treatment Not on file documented as of this encounter Visit Diagnoses Not on filedocumented in this encounter Care Teams Gas Examiner Relationship Specialty Start Date End Date Emery Ruiz MD [facility] [place] [address] PCP - General Internal Medicine 12/01/21 documented as of this encounter
--- OUTSIDE RECORDS SUMMARY | 2023-10-22 00:51 | XMS_ITS | Encounter Summary ---
[place] [address] Care Team Providers Care Liquor Inspector Name Role Phone Emery Ruiz MD Primary Care Provider [phone] Reason for Visit * Reason Onset Date Comments Other 02/04/2022 Faxed Referral t o PodiatryTo: PODIATRY [facility] [phone] Encounter Details Date Type Department Care Team (Late st Contact Info) Description 02/04/2022 Notes [place] [phone] Liseth Cox CCMA Other (Faxed Referral to Podiatry/To: PODIATRNandini [facility]/ [phone]/) Social History Tobacco Use Types Packs/Day Years [...] slept in a usp (including now)? No 12/01/2020 Sex and Gender Information Value Date Recorded Sex Assigned at Female 09/11/2020 9:02 AM EDT Gender Identity Female 09/11/2020 9:02 AM EDT Sexual Orientation Straight 02/14/2021 6: 45 PM EST documented as of this encounter Plan of Treatment Not on file documented as of this encounter Visit Diagnoses Not on filedocumented in this encounter Care Teams Liquor Inspector Relationship Specialty Start Date End Date Emery Ruiz MD [facility] [place] [address] PCP - General Internal Medicine 12/01/21 documented as of this encounter
--- OUTSIDE RECORDS SUMMARY | 2023-10-22 00:51 | XMS_ITS | Encounter Summary ---
Author Organization [facility] Address [facility] [place] [address] Care Team Providers Care Comb Setter Name Role Phone Tim Quinones MD Primary Care Provider [phone] Reason for Visit * Reason Comments Establish Care Encounter Details Date Type Department Care Team (Late st Contact Info) Description 12/13/2020 9:40 AM EDT Office Visit Internal Medicine at [address] [address] Tim Quinones MD [facility] [address] [place] [address] Breast cancer screening by mammogram; Menopausal state; [...] She had been receiving PCP care in [place] but her previous provider left. 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 Her most recent job was eliminated, but [...] lb wieght loss since 05/11/20 after joining [employer]! :), , am already following up with a [facility] pegger for the rash, itchy/dry skin. Objective: Visit [...] (natural) documented in this encounter Care Teams Comb Setter Relationship Specialty Start Date End Date Tim Quinones MD [facility] [place] [address] PCP - General Internal Medicine 10/14/20 11/30/21 documented as of this encounter
--- OUTSIDE RECORDS SUMMARY | 2023-10-22 00:51 | XMS_ITS | Encounter Summary ---
Author Organization [facility] Address [facility] [place] [address] Care Team Providers Care Multiple Slide Operator Name Role Phone Tim Quinones MD Primary Care Provider [phone] Encounter Details Date Type Department Care Team (Late st Contact Info) Description 10/14/2020 Abstract Internal Medicine at [facility] [address] [place] [address] Monse Jose, [facility] Social History Tobacco Use Types Packs/Day Years [...] on filedocumented in this encounter Care Teams Multiple Slide Operator Relationship Specialty Start Date End Date Tim Quinones MD [facility] [place] [address] PCP - General Internal Medicine 10/14/20 11/30/21 documented as of this encounter
--- OUTSIDE RECORDS SUMMARY | 2023-10-22 00:51 | XMS_ITS | Encounter Summary ---
Author Organization [facility] Address [facility] [place] [address] Care Team Providers Care Fire Prevention Research Engineer Name Role Phone Tim Quinones MD Primary Care Provider [phone] Reason for Visit * Reason Comments Cyst Bump... Left ear.... 06/13/2021.. Encounter Details Date Type Department Care Team (Late st Contact Info) Description 06/18/2021 10:00 AM EDT Office Visit Internal Medicine at [address] [id number] Yosef Malone PA [facility] [place] [place] [address] Acute swimmer's ear of left side Social [...] in a senior living (including now)? No 12/01/2020 Sex and Gender [...] sent through Care Everywhere. * Otitis Externa (Kiswahili) documented in this encounter Progress Notes * [...] side documented in this encounter Care Teams Fire Prevention Research Engineer Relationship Specialty Start Date End Date Tim Quinones MD [facility] [place] [address] PCP - General Internal Medicine 10/14/20 11/30/21 documented as of this encounter
--- OUTSIDE RECORDS SUMMARY | 2023-10-22 00:51 | XMS_ITS | Encounter Summary ---
Author Organization [facility] Address [facility] [place] [address] Care Team Providers Care Benefits Director Name Role Phone Tim Quinones MD Primary Care Provider [phone] Reason for Visit * Reason Comments Follow-up Encounter Details Date Type Department Care Team (Late st Contact Info) Description 10/21/2020 9:00 AM EDT Office Visit Dermatology at [facility] [address] [place] [address] Yosef Pacheco MD [facility] [place] [address] Lichen simplex chronicus Social History Tobacco Use [...] Desoximetasone when they flared Last visit at [facility] Derm: 09/20/2020 Last visit with this [...] area. RTC: One year [x]Note routed to medical secretary receptionist []Recall has been placed in scheduling system []Appointment scheduled at checkout Scribe attestation: Selene Youngblood LPN has performed the documentation for this encounter in the presence of and acting as a scribe for Yosef Pacheco MD I performed the above scribed service and agree with the accuracy of the documentation in this encounter. Reviewed and signed by: Yosef Pacheco MD Dermatology [facility] Patient seen and evaluated with staff stud sheep farmer: Carole Young MD Dermatology [facility] * Renato Young MD - [...] chronicus documented in this encounter Care Teams Benefits Director Relationship Specialty Start Date End Date Tim Quinones MD [facility] [place] [address] PCP - General Internal Medicine 10/14/20 11/30/21 documented as of this encounter
--- OUTSIDE RECORDS SUMMARY | 2023-10-22 00:51 | XMS_ITS | Encounter Summary ---
Author Organization [facility] Address [facility] [place] [address] Care Team Providers Care Security Escort Name Role Phone Emery Ruiz MD Primary Care Provider [phone] Encounter Details Date Type Department Care Team (Late st Contact Info) Description 06/15/2022 Telephone Internal Medicine at [address] [id number] Emery Ruiz MD [facility] [place] [address] Social History Tobacco Use Types Packs/Day Years [...] place to sleep or slept in a mcfp (including now)? No 12/01/2020 Sex and Gender [...] 6 weeks with a credentialed provider in [place] and would be happy to switch back [...] this point. Please call patient back at [phone] (home) for today. Patient states she will [...] to send my- message: No Offered Appointment: MA/Nurse/Refuse Laborer contacted via: Message: Yes Call: Pager: documented in this encounter Plan of Treatment Not on file documented as of this encounter Visit Diagnoses Not on filedocumented in this encounter Care Teams Security Escort Relationship Specialty Start Date End Date Emery Ruiz MD [facility] [place] [address] [place] [address] PCP - General Internal Medicine 12/01/21 documented as of this encounter
--- OUTSIDE RECORDS SUMMARY | 2023-10-22 00:51 | XMS_ITS | Encounter Summary ---
Author Organization [facility] Address [facility] [place] [address] Care Team Providers Care Manager Investment Name Role Phone Tim Quinones MD Primary Care Provider [phone] Reason for Visit * Reason Onset Date Comments Medication Refill 02/24/2021 Encounter Details Date Type Department Care Team (Late st Contact Info) Description 02/24/2021 Refill Dermatology at [facility] [address] [place] [address] Yosef Pacheco MD [facility] [address] [place] [address] Lichen simplex chronicus Social History Tobacco Use [...] place to sleep or slept in a residential (including now)? No 12/01/2020 Sex and Gender [...] chronicus documented in this encounter Care Teams Manager Investment Relationship Specialty Start Date End Date Tim Quinones MD [facility] [place] [address] PCP - General Internal Medicine 10/14/20 11/30/21 documented as of this encounter
--- OUTSIDE RECORDS SUMMARY | 2023-10-22 00:51 | XMS_ITS | Encounter Summary ---
Author Organization [facility] Address [facility] [place] [address] Care Team Providers Care Stock Plan Administrator Name Role Phone Emery Ruiz MD Primary Care Provider [phone] Encounter Details Date Type Department Care Team (Late st Contact Info) Description 02/26/2021 Refill Dermatology at [facility] [address] [place] [address] Yosef Pacheco MD [facility] [place] [address] Social History Tobacco Use Types Packs/Day Years [...] on filedocumented in this encounter Care Teams Stock Plan Administrator Relationship Specialty Start Date End Date Emery Ruiz MD [facility] GENER[facility] [place] [address] PCP - General Internal Medicine 12/01/21 documented as of this encounter
--- OUTSIDE RECORDS SUMMARY | 2023-10-22 00:51 | XMS_ITS | Encounter Summary ---
[place] [address] Care Team Providers Care Maintenance Instructor Name Role Phone Tim Quinones MD Primary Care Provider [phone] Reason for Visit * Reason Onset Date Comments Triage 04/21/2021 Encounter Details Date Type Department Care Team (Late st Contact Info) Description 04/21/2021 [place] [phone] Janelle Perez, clerical office Social History Tobacco Use Types Packs/Day Years [...] or outpatient) or surgeon. *primary role: Attending, Resident/Curing Oven Tender, ANNA, RN, COREY, MA Is patient a [...] Department of Health and Human Services, and [facility] policy. Patient/Responsible green party voices an understanding of advice: yes Patient/Responsible green party intends to comply with actions/disposition: yes TESTING CRITERIA: Asymptomatic patients: Criteria for testing- member of or healthcare worker at a alf/correction, correction facility or intermediate project manager care facility (LTCF), and all first responders. [...] to symptoms - Proceed with Quarantine Instructions. [facility], [facility], or Occupational Medicine may request testing. [...] and infectious disease based on CDC guidelines, [facility] of Health and Human Services, and [facility] policy. Important instructions for patient when scheduling [...] clean your hands with an alcohol-based hand small arms repairer that contains at least 60% alcohol. 8. [...] more information on Covid-19 *May test at [place] only. documented in this encounter Plan of Treatment Not on file documented as of this encounter Visit Diagnoses Not on filedocumented in this encounter Care Teams Maintenance Instructor Relationship Specialty Start Date End Date Tim Quinones MD [facility] [place] [address] PCP - General Internal Medicine 10/14/20 11/30/21 documented as of this encounter
[2023-10-22 09:41] LABS: Cholesterol 299 mg/dL (<200); Triglyceride 39 mg/dL (<150); Vitamin D 25 Total 24.9 ng/mL (30-100)
[2023-10-22 09:43] LABS: Calculated LDL 131 mg/dL (<100); HDL Cholesterol 161 mg/dL (40-60)
== END 2023-10-22 00:45 | disposition home or self-care (01) ==
PROVIDERS: PCP Internal Medicine; Visit Provider Internal Medicine
DX: E78.5 Hyperlipidemia, unspecified (principal); E55.9 Vitamin D deficiency, unspecified
CPT/HCPCS: 36415; 80061; 82306

== ENCOUNTER 2023-11-08 01:55 | Outpatient (CLI) | payer OTHER, SELFPAY ==
[2023-11-08 12:18] LABS: Calculated LDL 133 mg/dL (<100); Cholesterol 286 mg/dL (<200); HDL Cholesterol 146 mg/dL (40-60); Triglyceride 35 mg/dL (<150)
== END 2023-11-08 01:56 | disposition home or self-care (01) ==
PROVIDERS: PCP Internal Medicine; Visit Provider Internal Medicine
DX: E78.5 Hyperlipidemia, unspecified (principal)
CPT/HCPCS: 36415; 80061

== ENCOUNTER 2023-12-09 08:04 | Emergency (ER) | payer OTHER, SELFPAY ==
--- NOTE | 2023-12-09 | DI.RAD_ITS ---
Exam(s) XR WRIST LT COMP NAVICULAR XR WRIST RT COMPL NAVICULAR EXAM: XR WRIST RT COMPL NAVICULAR CLINICAL HISTORY: FALL ON OUT STRETCHED HAND SNUFF BOX TENDERNESS BILAT. TECHNIQUE: 2D digital imaging was performed. Four views of both wrists. COMPARISON: CR XR WRIST LT COMP NAVICULAR from 12/09/2023 FINDINGS: BONES: No acute fracture is present. No bony destructive lesion is seen. JOINTS: The carpal bones are normally aligned. Minimal degenerative changes. SOFT TISSUE: Normal. IMPRESSION: Unremarkable radiographs of the both wrists. DATA REPOSITORY: RADIATION DOSE DELIVERED:
--- NOTE | 2023-12-09 09:03 | W.ED.GENAD ---
Discharge Plan Disposition Patient Disposition: Home Condition: Stable Discharge Details Clinical Impression: Fall, Acute pain of both wrists Primary Care Provider: Tim Quinones ED Provider: Anita Clemente Home Meds and New Rx's Prescriptions: No Action rosuvastatin 5 mg tablet 5 mg PO DAILY Patient Comments: take 1 tablet by mouth once daily Emergen-C 1,000 mg powder effervescent in packet 1 packet PO DAILY AM cholecalciferol (vitamin D3) [Vitamin D3] 25 mcg (1,000 unit) tablet 2,000 unit PO DAILY acetaminophen 500 mg tablet 500 mg PO Q6H PRN (Reason: pain) Qty: 60 0RF ibuprofen 600 mg tablet 600 mg PO TID PRN (Reason: pain) Qty: 60 0RF Discharge Instructions Instructions: Common Wrist Injuries (DC) Additional Instructions: You were seen in the emergency department today for evaluation after a fall on Wednesday with bilateral wrist pain. In our department you have a full physical examination performed, and had x-rays performed of the wrist with no obvious fractures. Given the location of your tenderness you need to wear wrist braces until you can be reevaluated by your primary care provider, as they may want to do repeat imaging to evaluate for hairline fractures that could not be detected on the initial x-rays. Thank you for allowing us to be part of your care. Discharge Data Discharge Date/Time-TO BE ENTERED AT DEPARTURE: 12/09/23 10:31 HPI General Mode of arrival: ambulatory. Date/Time Provider Initiated Documentation: 12/09/23 09:03. Limitations to Documentation: no limitations. Information obtained by: patient and old records reviewed. HPI Narrative: HPI: This is a 73-year-old female patient without significant past medical history who is presenting for evaluation of a fall. She states that on Wednesday she was walking, tripped and fell forward landing on her bilateral outstretched hands. She did not injure injure any other part of her body during this event, was able to ambulate afterwards without difficulty. She reports that she has noted some pain in her bilateral wrist as well as bruising of the right greater than left wrist since that time. She has been managing her pain with Tylenol, ibuprofen, and ice, states that she was prompted to seek care today because the bruising seems so much worse than her pain was ongoing. The patient is otherwise in her normal state of health, with no recent illnesses, fevers, or other acute complaints today. Exam: Gen: Awake and alert, in no apparent distress HEENT: Non-icteric sclera Neck: Supple Lungs: No apparent respiratory distress, normal respiratory effort. CV: Appears well perfused Abdomen: Non-distended MSK: Moves 4 extremities without apparent limitation in ROM. The patient has tenderness to the bilateral anatomical snuffbox's, with no deformity or crepitus. She has no associated tenderness or limitation in range of motion to the fingers, elbows, or shoulders. She does have bruising appreciated to the palmar aspect of the right wrist up to the level of the distal forearm, and mild bruising of the left dorsal. Her neurovascular examination distal to these wrist injuries are intact. Skin: Visualized skin without rashes, cyanosis. Neuro: Normal Gait, no obvious focal deficits or facial asymmetry. Speaks in full, clear sentences. Psych: Appropriate for situation. MDM: This is a 73-year-old female patient presenting for evaluation of a fall onto bilateral outstretched hands several days ago. Differential includes but is not limited to fracture, dislocation, contusion. Certainly considered occult scaphoid fracture, as well as ligamentous sprain. No evidence of neurovascular derangement. This was a mechanical fall with no preceding medical complaints that requires workup or intervention today. We will obtain x-ray imaging of the bilateral wrist. Given the location of the pain I anticipate the patient will at minimum require bilateral thumb spica splints and reevaluation by her primary care provider for reassessment. ED Course: I independently interpreted the patient's x-ray imaging, which shows no evidence of fracture, dislocation, or other osseous abnormality. Given the snuffbox tenderness I did provide the patient with bilateral thumb spica splints for occult scaphoid fracture and recommended reimaging by her primary care provider in the next few days. At this time, the patient has had a full medical evaluation and is safe for discharge to home. They are hemodynamically stable, ambulatory, and tolerating PO. They are understanding of the follow-up plan and return precautions. They left our facility without incident. Anita Clemente MD Related Data Home Medications ?Medication ?Instructions ?Recorded ?Confirmed acetaminophen 500 mg tablet 500 mg PO Q6H PRN pain #60 tabs 02/06/20 12/09/23 ibuprofen 600 mg tablet 600 mg PO TID PRN pain #60 tabs 02/06/20 12/09/23 ascorbic acid 1,000 1 packet PO DAILY AM 12/09/23 12/09/23 oc-kgxghptwqbsm-kucgwrdf powder prevention/general good health effervescent pack (Emergen-C) cholecalciferol (vitamin D3) 25 2,000 unit PO DAILY improve 12/09/23 12/09/23 mcg (1,000 unit) tablet (Vitamin cardiovascular health D3) rosuvastatin 5 mg tablet 5 mg PO DAILY 12/09/23 12/09/23 Previous Rx's ?Medication ?Instructions ?Recorded acetaminophen 500 mg tablet 500 mg PO Q6H PRN pain #60 tabs 02/06/20 ibuprofen 600 mg tablet 600 mg PO TID PRN pain #60 tabs 02/06/20 Allergies Allergy/AdvReac Type Severity Reaction Status Date / Time amoxicillin Allergy Severe Skin Rash Unverified 12/09/23 09:26 cephalexin monohydrate (From Allergy Intermediate Hives Unverified 12/09/23 09:26 Keflex) General Stated Complaint: Fall/Non TraumaCriteria ALSHAWN: 4 Medical Decision Making Quality:SDOH Health Related Social Needs: No Data to Display PFSH All Active Problems (Updated 12/09/23 @ 10:21 by Anita Clemente MD) Acute pain of both wrists (Acute) Fall (Acute) Screening for colon cancer (Acute) Trigger finger of left thumb (Acute) Medical History (Updated 12/09/23 @ 10:21 by Anita Clemente MD) History of trigger finger Hyperglycemia Pruritic rash Eczema Cystocele pt .unaware of this Hyperlipidemia Vitamin D deficiency Surgical History H/O nasal septoplasty History of carpal tunnel surgery History of section Colonoscopy - IV Sedation (01/07/15) DR.C. 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 Female Reproductive History Menstrual Menopause type: natural (Age 54) History History 2 Para Hx # Term Pregnancies 2 Multiple births Hx # Pregnancies Ectopic pregnancies AB induced Hx Number of Living Children AB spontaneous
--- NOTE | 2023-12-09 10:02 | NUR.NOTE ---
Nursing Note: This RN received report and transfer of care at this time by Washington Malagon RN
== END 2023-12-09 10:31 | disposition home or self-care (01) ==
PROVIDERS: Emergency Provider Emergency Medicine; PCP Internal Medicine
DX: M25.532 Pain in left wrist (principal); M25.531 Pain in right wrist; E78.5 Hyperlipidemia, unspecified
CPT/HCPCS: 99283; 73110

== ENCOUNTER 2024-02-07 02:26 | Outpatient (CLI) | payer OTHER, SELFPAY ==
[2024-02-07 09:54] LABS: Calculated LDL 96 mg/dL (<100); Cholesterol 246 mg/dL (<200); HDL Cholesterol 142 mg/dL (40-60); Triglyceride 41 mg/dL (<150); Vitamin D 25 Total 32.1 ng/mL (30-100)
== END 2024-02-07 02:27 | disposition home or self-care (01) ==
PROVIDERS: PCP Internal Medicine; Visit Provider Internal Medicine
DX: E78.5 Hyperlipidemia, unspecified (principal); E55.9 Vitamin D deficiency, unspecified
CPT/HCPCS: 36415; 80061; 82306

== ENCOUNTER 2024-10-23 03:21 | Outpatient (CLI) | payer OTHER, SELFPAY ==
--- NOTE | 2024-10-23 | DI.MAMMO_ITS ---
Exam(s) MAMMO SCREENING EXAM: MAMMO SCREENING CLINICAL HISTORY: Screening, Z12.31 TECHNIQUE: Bilateral full field digital CC and MLO mammographic images were obtained with 3D tomosynthesis and utilizing computer aided detection (CAD). COMPARISON: Comparison is made with prior examinations. FINDINGS: Masses/Architectural Distortion: There is a new 8 mm nodule in the outer retroareolar region of the right breast on the craniocaudad view 2.5 cm from the nipple. Microcalcifications: No suspicious pleomorphic-type are seen. Skin Thickening/Nipple Retraction: None. IMPRESSION: 1. New 8 mm nodule in the retroareolar region of the right breast on the craniocaudad view. 2. This area should be further evaluated with a spot compression view. Ultrasound may be indicated at that time. BI-RADS Category 0 - Incomplete: Need additional imaging evaluation Breast Density - Category B - There are scattered areas of fibroglandular density. Breast density Category C or D implies that the patient has dense breast tissue. Dense breast tissue can make it harder to find cancer on a mammogram. Dense breast tissue is also associated with an increased risk of breast cancer. This information about the result of the mammogram report was provided to the patient to raise their awareness. Use this report when you speak with the patient about their risks for breast cancer, which includes their family history. At that time, you may recommend additional screening tests (Ultrasound or MRI) as these tests may add significant information. A negative radiographic report should not delay biopsy if a dominant or clinically suspicious mass is present. Up to ten percent of cancers are not identified on mammography. A negative report may reinforce clinical impression. Adenosis and dense breasts may obscure an underlying neoplasm. False positive reports average 6 to 10%. Patient will receive a letter notifying them of these results.
== END 2024-10-23 03:41 ==
LOC: DI 03:21
PROVIDERS: PCP Internal Medicine; Visit Provider Internal Medicine
DX: Z12.31 Encounter for screening mammogram for malignant neoplasm of breast (principal); R92.323 Mammographic fibroglandular density, bilateral breasts
CPT/HCPCS: 77063; 77067

== ENCOUNTER 2024-10-25 11:52 | Outpatient (CLI) | payer OTHER, SELFPAY ==
--- NOTE | 2024-10-25 | DI.MAMMO_ITS ---
Exam(s) MG MAMMO SCREEN CALL BACK UNI US BREAST RT LIMITED EXAM: MG MAMMO SCREEN CALL BACK UNI and U/S breast RT limited CLINICAL HISTORY: F/U MAMMO, R92.8, NEW 8 MM RT BREAST NODULE. TECHNIQUE: Craniocaudal and mediolateral oblique Full Field Digital Mammography views of the right breast with Computer Aided Diagnosis followed by Tomosynthesis and limited right breast ultrasound. COMPARISON: US US BREAST RT LIMITED from 10/25/2024 FINDINGS: Mammography/Tomosynthesis: Masses/Architectural Distortion: The nodule persists in the retroareolar region of the right breast. It does appear to be present on prior examinations, however, the central calcification is new. There are no areas of architectural distortion present. Microcalcifictions: No suspicious pleomorphic-type are seen. Skin Thickening/Nipple Retraction: None. Limited right breast US: Echotexture: Normal appearance of the glandular tissue. Shadowing: No suspicious foci. Cyst: None. Solid lesions: There is a well-circumscribed nodule at the 12 o'clock position of the right breast which would appear to correspond to the mammographic abnormality. It measures 6 mm in diameter. There is a central echogenic focus likely corresponding to the calcification from the mammogram. Ductal dilation: None. IMPRESSION: 1. Well-circumscribed nodule in the right breast as described above. No definite suggestive of a malignancy is seen at this time. 2. A six-month follow-up mammogram and ultrasound are requested for re- evaluation. 3. The findings were discussed with the patient on the date of the examination. BI-RADS Category 3 - 6 month - Probably Benign Finding: Recommend follow-up imaging in 6 months Breast Density - Category B - There are scattered areas of fibroglandular density. Breast density Category C or D implies that the patient has dense breast tissue. Dense breast tissue can make it harder to find cancer on a mammogram. Dense breast tissue is also associated with an increased risk of breast cancer. This information about the result of the mammogram report was provided to the patient to raise their awareness. Use this report when you speak with the patient about their risks for breast cancer, which includes their family history. At that time, you may recommend additional screening tests (Ultrasound or MRI) as these tests may add significant information. A negative radiographic report should not delay biopsy if a dominant or clinically suspicious mass is present. Up to ten percent of cancers are not identified on mammography. A negative report may reinforce clinical impression. Adenosis and dense breasts may obscure an underlying neoplasm. False positive reports average 6 to 10%. Patient will receive a letter notifying them of these results.
== END 2024-10-25 12:12 ==
PROVIDERS: PCP Internal Medicine; Visit Provider Internal Medicine
DX: Z12.31 Encounter for screening mammogram for malignant neoplasm of breast (principal); R92.8 Other abnormal and inconclusive findings on diagnostic imaging of breast; R92.323 Mammographic fibroglandular density, bilateral breasts
CPT/HCPCS: 76642; 77063; 77067